=== PATIENT | female | born 1930 | race Caucasian/White ===

== ENCOUNTER 2016-04-26 18:01 | Inpatient (IN) | payer MEDICARE, OTHER ==
[~2016-04-26] VITALS: Ht 157.5 cm; Wt 75.0 kg
[~2016-04-26 18:01] MED LIST: ALBU0.63 NEB; BENZ100 PO; BETH25TA2 PO; CALC1TAB87 PO; COZA25TA PO; DILT-60 PO; FLUT1SPR5 EACH NARE; IPRAAER INH; ISOS30TA15 PO; LEVO-86 PO; NEXI40CA PO; PRED10PA PO; PULM180I INH; SIMV20TA PO; TORS20TA PO; WARF-60 PO; ZITH500T PO; [UNRECOGNIZED DRUG - CODE] PO
[2016-04-26 18:25] VITALS: BP 152/73; PULSE 75; RESP 18; TEMP 98.7; O2SAT 97
[2016-04-26] MEDS ORDERED: ONDANSETRON HCL 4 MG/2 ML VIAL IV PUSH ONE ×2 (18:30→21:00)
[2016-04-26] MEDS ORDERED: HYDROmorphone HCL PF 1 MG/ML VIAL IV PUSH ONE (18:30)
--- NOTE | 2016-04-26 18:34 | PD ---
HPI Chief Complaint: Fall Time Seen by Provider: 18:26 Travel History International Travel<30 days: No Contact w/Intl Traveler<30days: No Traveled to known affect area: No History of Present Illness HPI 85-year-old female with history of A. fib currently on Coumadin, multiple medical history, presents to the ER today because she states that she had lost balance and fell at home last night and had been laying on the floor waiting for her son to get home. She is complaining of left shoulder pain. She states she did hit her head but denies any loss of consciousness. She denies any other injuries, chest pains, shortness of breath, nausea and vomiting, or other symptoms. Current left shoulder pain level is a 6 out of 10, worse with movement. Modifying Factors: None Associated Signs & Symptoms: Lost balance and fell, left shoulder pain Risk Factors: Elderly PFSH Past Medical History Asthma: No Atrial Fibrillation: Yes Autoimmune Disease: No Blood Disorders: No Heart Rhythm Problems: No Cancer: Yes (SKIN) Cardiovascular Problems: Yes (ATRIAL FIBRILLATION,CAD) High Cholesterol: Yes Chemotherapy: No Congestive Heart Failure: No COPD: Yes Cerebrovascular Accident: No Diabetes: No Diminished Hearing: No Endocrine: Yes Gastrointestinal Disorders: Yes (ACID REFLUX, HX OF ESOPHAGEAL STRICTURE/ DILATION) GERD: Yes Glaucoma: No Genitourinary: No Hepatitis: No Hiatal Hernia: No Hypertension: Yes Immune Disorder: No Musculoskeletal: Yes (OSTEOARTHRITIS, BACK PROBLEMS) Neurologic: No Psychiatric: No Reproductive: No Respiratory: Yes (COPD, SLEEP APNEA, USES CPAP) Myocardial Infarction: No Radiation Therapy: No Seizures: No Sleep Apnea: No Thyroid Disease: Yes Ulcer: No ?: Not Past Surgical History Abdominal Surgery: Yes (APPENDECTOMY, CHOLECYSTECTOMY) AICD: No Appendectomy: Yes Cholecystectomy: Yes Eye Surgery: Yes (MAIKEL CATARACT SURGERY) Genitourinary Surgery: No Gynecologic Surgery: Yes (HYSTERECTOMY) Hysterectomy: Yes Pacemaker: No Other Surgery: Yes Social History Alcohol Use: Yes (RARE) Tobacco Use: No (quit 26 years ago) Substance Use: No Allergies-Medications (Allergen,Severity, Reaction): Coded Allergies: Aspirin (Verified Allergy, Severe, Rash, 04/26/16) Reported Meds & Prescriptions Reported Meds & Active Scripts Active Reported Duoneb (Ipratropium-Albuterol Neb) 0.5-2.5 Mg/3 Ml Neb 1 Nebule INH QID PRN Budesonide Neb 0.5 Mg/2 Ml Neb 0.5 Mg NEB Q12HR NEB Isosorbide Mononitrate ER (Isosorbide Mononitrate) 60 Mg Tab 60 Mg PO DAILY Calcium 1000 + D (Calcium Carbonate-Cholecalciferol) 1,000-800 Mg-Unit Tab 1 Tab PO DAILY Warfarin 5 Mg Tab 5 Mg PO HS Klor-Con M15 (Potassium Chloride Microencaps) 15 Meq Tab 15 Meq PO DAILY Torsemide 20 Mg Tab 20 Mg PO DAILY Bethanechol 25 Mg Tab 12.5 Mg PO QID Synthroid (Levothyroxine Sodium) 137 Mcg Tab 137 Mcg PO DAILY Flonase Allergy Relief Nasal Kinta (Fluticasone Nasal Kinta) 50 Mcg/Act Kinta 1 Kinta EACH NARE BID PRN Diltiazem CD 24 HR 120 Mg Caper 120 Mg PO DAILY Cozaar (Losartan Potassium) 25 Mg Tab 25 Mg PO DAILY Nexium (Esomeprazole DR) 40 Mg Capdr 40 Mg PO AC DINNER Combivent Respimat Inh (Ipratropium-Albuterol Inh) 20-100 Group Home/Act Aero 1 Puff INH QID PRN Simvastatin 20 Mg Tab 20 Mg PO HS Review of Systems Except as stated in HPI: all other systems reviewed are Neg Physical Exam Narrative GENERAL: Well-nourished, well-developed pleasant elderly white female patient in mild distress, left arm in a splint. Awake, oriented 3. SKIN: Warm and dry. HEAD: Normocephalic. EYES: No scleral icterus. No injection or drainage. NECK: Supple, trachea midline. CARDIOVASCULAR: Regular rate and rhythm without murmurs, gallops, or rubs. CHEST: Nontender throughout without deformity or crepitance. No retractions or use of accessory muscles. RESPIRATORY: Breath sounds equal bilaterally. No accessory muscle use. GASTROINTESTINAL: Abdomen soft, non-tender, nondistended. Pelvis: Stable and nontender palpation. Nontender range of motion of the hips. MUSCULOSKELETAL: No cyanosis, or edema. BACK: Nontender without obvious deformity. No CVA tenderness. NEUROLOGICAL: Awake and alert. Cranial nerves II through XII intact. Motor and sensory grossly within normal limits. Five out of 5 muscle strength in all muscle groups. Normal speech. Left upper extremity: There is tenderness on palpation of the left humeral midshaft area. Nontender to palpation at the elbow and below, nontender wrist range of motion. Neurovascularly intact in the left arm. Other EXTREMITIES: No clubbing, cyanosis, or edema. No joint tenderness, effusion, or edema noted. Data Data Last Documented VS Vital Signs Date Time Temp Pulse Resp B/P Pulse Ox O2 Delivery O2 Flow Rate FiO2 04/26/16 20:00 98 28 04/26/16 20:00 Nasal Cannula 2.00 04/26/16 18:25 98.7 75 18 152/73 Orders Electrocardiogram (04/26/16 18:26) Complete Blood Count With Diff (04/26/16 18:26) Basic Metabolic Panel (Bmp) (04/26/16 18:26) Prothrombin Time / Inr (Pt) (04/26/16 18:26) Act Partial Throm Time (Ptt) (04/26/16 18:26) Ct Brain W/O Iv Contrast(Rout) (04/26/16 18:26) Hydromorphone Pf Inj (Dilaudid Pf Inj) (04/26/16 18:30) Ondansetron Inj (Zofran Inj) (04/26/16 18:30) Creatine Kinase (Cpk) (04/26/16 18:58) Humerus, One View (04/26/16 18:26) Shoulder, Limited(2vws) (04/26/16 18:26) Propofol 200 Mg/20 Ml Inj (Diprivan 200 (04/26/16 20:00) Sodium Chlorid 0.9% 500 Ml Inj (Ns 500 M (04/26/16 20:00) Ice/Cold Pack (04/26/16 19:54) Splint Or Brace Apply/Monitor (04/26/16 19:54) Shoulder, Limited(2vws) (04/26/16 ) Morphine Inj (Morphine Inj) (04/26/16 21:00) Ondansetron Inj (Zofran Inj) (04/26/16 21:00) Admit Order (Ed Use Only) (04/26/16 21:36) Consult Orthopedic (04/26/16 ) Labs Laboratory Tests Test 04/26/16 18:50 White Blood Count 11.9 TH/MM3 Red Blood Count 4.15 MIL/MM3 Hemoglobin 12.1 GM/DL Hematocrit 36.1 % Mean Corpuscular Volume 87.0 FL Mean Corpuscular Hemoglobin 29.1 PG Mean Corpuscular Hemoglobin 33.5 % Concent Red Cell Distribution Width 16.6 % Platelet Count 212 TH/MM3 Mean Platelet Volume 8.4 FL Neutrophils (%) (Auto) 91.8 % Lymphocytes (%) (Auto) 3.3 % Monocytes (%) (Auto) 4.8 % Eosinophils (%) (Auto) 0.0 % Basophils (%) (Auto) 0.1 % Neutrophils # (Auto) 11.0 TH/MM3 Lymphocytes # (Auto) 0.4 TH/MM3 Monocytes # (Auto) 0.6 TH/MM3 Eosinophils # (Auto) 0.0 TH/MM3 Basophils # (Auto) 0.0 TH/MM3 CBC Comment DIFF FINAL Differential Comment Prothrombin Time 25.2 SEC Prothromb Time International 2.2 RATIO Ratio Activated Partial 37.2 SEC Thromboplast Time Sodium Level 140 MEQ/L Potassium Level 4.5 MEQ/L Chloride Level 103 MEQ/L Carbon Dioxide Level 28.7 MEQ/L Anion Gap 8 MEQ/L Blood Urea Nitrogen 39 MG/DL Creatinine 1.27 MG/DL Estimat Glomerular Filtration 40 ML/MIN Rate Random Glucose 106 MG/DL Calcium Level 9.6 MG/DL Total Creatine Kinase 65 U/L [facility] Medical Decision Making Medical Screen Exam Complete: Yes Emergency Medical Condition: Yes Medical Record Reviewed: Yes Differential Diagnosis Fall, left humeral injury, minor head injuryrule out acute intracranial injuries versus humeral fracture versus dislocation versus contusion Narrative Course X-rays and CAT scans were ordered for the patient. Physician Communication Physician Communication Patient signed out to Dr. Senior at 7 PM awaiting workup. Diagnosis Primary Impression: Fall Qualified Code: W19.XXXA - Fall, initial encounter Additional Impression: Displaced fracture of proximal end of left humerus Mario Babcock MD Apr 26, 2016 18:34
[2016-04-26] MEDS ORDERED: ISOS60TA PO (18:50)
[2016-04-26] MEDS ORDERED: WARF-23 PO (18:50)
[2016-04-26] MEDS ORDERED: CALCTAB80 PO (18:50)
[2016-04-26] MEDS ORDERED: IPRASOL INH (18:52)
[2016-04-26] MEDS ORDERED: BUDE0.5S NEB (18:52)
--- NOTE | 2016-04-26 19:14 | PD ---
Physical Exam Narrative General: The patient is well-developed well-nourished female in no acute distress. The patient has obvious deformity of the proximal left humerus. She reports pain at the site. The patient reports a history of tripping over her oxygen tubing at home at approximately 3:30 PM. She reports that she lives with her son and new that he would be home from work at approximately 4:30 PM, therefore she did not panic. She denies having any other injury associated with this. She reports that she does have stiffness to the right knee. She reports that she's had bilateral knee replacements. Head and Neck exam: Head is normocephalic atraumatic. Eyes: Pupils are equal round and reactive to light. Nose: Midline septum with pink mucous membranes Mouth: Dentition unremarkable. Moist mucus membranes. Posterior oropharynx is not erythematous. No tonsillar hypertrophy. Uvula midline. Airway patent. Neck: No palpable lymphadenopathy. No nuchal rigidity. No thyromegaly. Cardiovascular: Irregularly irregular with rate control consistent with her history of atrial fibrillation without murmurs, gallops, or rubs. Lungs: Clear to auscultation bilaterally. No wheezes, rhonchi, or rales. Abdomen: Soft, without tenderness to palpation in all 4 quadrants of the abdomen. No guarding, rebound, or rigidity. Normal bowel sounds are audible. Extremities: No clubbing, cyanosis, or edema. 2+ pulses in all 4 extremities. She has some tenderness to palpation over the anterior aspect of the right knee where she has an abrasion. She however has full range of motion of bilateral knees and hips without any shortening, rotation, or deformity. There is no crepitus or step-off. The patient on examination of the left shoulder is noted to have a proximal deformity. The patient has a splint and place that was placed by ambulance services prior to arrival. The patient has no pain on palpation of her elbow. The patient has no pain on palpation of her wrist or hand. The patient has full range of motion with extension and flexion of the wrist and extension and flexion of the elbow without pain. The patient has intact sensation over all fingertips, less than 3 second capillary refill. Neurologic Exam: Grossly nonfocal. The patient is awake and alert, oriented to person, place, time, and situation. Skin Exam: No rash noted. She has an abrasion to the anterior aspect of the right knee. Data Data Last Documented VS Vital Signs Date Time Temp Pulse Resp B/P Pulse Ox O2 Delivery O2 Flow Rate FiO2 04/26/16 18:40 99 Nasal Cannula 2 04/26/16 18:25 98.7 75 18 152/73 Orders Electrocardiogram (04/26/16 18:26) Complete Blood Count With Diff (04/26/16 18:26) Basic Metabolic Panel (Bmp) (04/26/16 18:26) Prothrombin Time / Inr (Pt) (04/26/16 18:26) Act Partial Throm Time (Ptt) (04/26/16 18:26) Ct Brain W/O Iv Contrast(Rout) (04/26/16 18:26) Hydromorphone Pf Inj (Dilaudid Pf Inj) (04/26/16 18:30) Ondansetron Inj (Zofran Inj) (04/26/16 18:30) Creatine Kinase (Cpk) (04/26/16 18:58) Humerus, One View (04/26/16 18:26) Shoulder, Limited(2vws) (04/26/16 18:26) Propofol 200 Mg/20 Ml Inj (Diprivan 200 (04/26/16 20:00) Sodium Chlorid 0.9% 500 Ml Inj (Ns 500 M (04/26/16 20:00) Ice/Cold Pack (04/26/16 19:54) Splint Or Brace Apply/Monitor (04/26/16 19:54) Shoulder, Limited(2vws) (04/26/16 ) Morphine Inj (Morphine Inj) (04/26/16 21:00) Ondansetron Inj (Zofran Inj) (04/26/16 21:00) Admit Order (Ed Use Only) (04/26/16 21:36) Consult Orthopedic (04/26/16 ) Labs Laboratory Tests Test 04/26/16 18:50 White Blood Count 11.9 TH/MM3 Red Blood Count 4.15 MIL/MM3 Hemoglobin 12.1 GM/DL Hematocrit 36.1 % Mean Corpuscular Volume 87.0 FL Mean Corpuscular Hemoglobin 29.1 PG Mean Corpuscular Hemoglobin 33.5 % Concent Red Cell Distribution Width 16.6 % Platelet Count 212 TH/MM3 Mean Platelet Volume 8.4 FL Neutrophils (%) (Auto) 91.8 % Lymphocytes (%) (Auto) 3.3 % Monocytes (%) (Auto) 4.8 % Eosinophils (%) (Auto) 0.0 % Basophils (%) (Auto) 0.1 % Neutrophils # (Auto) 11.0 TH/MM3 Lymphocytes # (Auto) 0.4 TH/MM3 Monocytes # (Auto) 0.6 TH/MM3 Eosinophils # (Auto) 0.0 TH/MM3 Basophils # (Auto) 0.0 TH/MM3 CBC Comment DIFF FINAL Differential Comment Prothrombin Time 25.2 SEC Prothromb Time International 2.2 RATIO Ratio Activated Partial 37.2 SEC Thromboplast Time Sodium Level 140 MEQ/L Potassium Level 4.5 MEQ/L Chloride Level 103 MEQ/L Carbon Dioxide Level 28.7 MEQ/L Anion Gap 8 MEQ/L Blood Urea Nitrogen 39 MG/DL Creatinine 1.27 MG/DL Estimat Glomerular Filtration 40 ML/MIN Rate Random Glucose 106 MG/DL Calcium Level 9.6 MG/DL Total Creatine Kinase 65 U/L [facility] Medical Record Reviewed: Yes Supervised Visit with YOLANDA: No Interpretation(s) Last Impressions Shoulder X-Ray 04/26/161825 Signed Impressions: Service Date/Time: Tuesday, April 26, 2016 19:08 - CONCLUSION: 1. Fracture dislocation proximal left humerus with anterior displacement. Allan Shah MD Humerus X-Ray 04/26/161825 Signed Impressions: Service Date/Time: Tuesday, April 26, 2016 19:06 - CONCLUSION: 1. Fracture dislocation proximal humerus. Possible fracture bony glenoid. Allan Shah MD Head CT 04/26/161825 Signed Impressions: Service Date/Time: Tuesday, April 26, 2016 19:29 - CONCLUSION: 1. No acute findings. White matter ischemic changes. Allan Shah MD Shoulder X-Ray 04/26/16 0000 Signed Impressions: Service Date/Time: Tuesday, April 26, 2016 20:39 - CONCLUSION: 1. Comminuted fracture proximal left humerus with reduction of previous dislocation. Allan Shah MD Differential Diagnosis Left shoulder fracture, versus dislocation, versus rhabdomyolysis, versus intracranial hemorrhage Narrative Course During the course of the patients emergency department visit, the patients history, examination, and differential diagnosis were reviewed with the patient. The patient had IV access obtained and blood work sent for analysis. The patient was placed on a clinical research monitor with oximetry and blood pressure monitoring. The patient was initially evaluated by Dr. Berg, who requested that I review the patient's laboratory studies and imaging studies and disposition the patient at the conclusion of her shift. The patient is an 85-year-old female who presents to [facility] emergency Department with a history of reported fall with left arm deformity. The patient is reportedly on Coumadin related to a history of atrial fibrillation. Laboratory studies were ordered including an INR and his CPK is a patient was found on the ground for an unspecified period of time. A CT scan of the brain was ordered and a left shoulder x-ray was ordered. The patient was provided by Dr. Berg, hydromorphone 0.5 mg IV, Zofran 4 mg IV. The patients laboratory studies were reviewed and remarkable for a white count of 11.9, hemoglobin 12.1, platelets 212 with neutrophils 91.8, lymphocytes 3.3, basic metabolic profile is remarkable for BUN of 39, creatinine 1.27, CPK 65, INR is 2.2 Radiology studies were reviewed and remarkable for CT scan of the brain was negative for acute abnormality. Humerus x-ray revealed a fracture dislocation of the proximal humerus, possible fracture of the bony glenoid, left shoulder x- ray revealed a fracture dislocation proximal left humerus with anterior displacement. The patient's case is discussed with Dr. Barraza. We did review the patient's x-ray. He did agree with the plan at and attempted closed reduction in the emergency department at this dislocation. The patient consented to close reduction of her proximal left humerus fracture dislocation. A post reduction film revealed a comminuted fracture of the proximal left humerus with reduction a previous dislocation. The patient was placed in a sling and swath. The patient continued to require IV pain medication. The patient will be admitted to the hospital for intractable pain related to this fracture. A CT scan of the shoulder will also be ordered to evaluate further considering the possible glenoid fracture associated with this humerus fracture. The patients results were discussed with the patient, including the plan of care. I explained that further testing and/ or monitoring is indicated based on the patients history, examination, and/ or laboratory findings. Therefore, I recommended admission for additional evaluation. The patient expressed understanding and was agreeable with this plan. The patient was admitted to the hospital in stable condition and [facility] Procedures Procedure Narrative Closed reduction left proximal humerus fracture dislocation: Traction was applied in line with the humerus while the shoulder was externally rotated. Palpable alignment was noted on reexamination of the patient's humerus, however no clunk was heard or felt. After the risks and benefits were discussed the following procedure was performed: MODERATE SEDATION: The patient was placed on a clinical research monitor and pulse oximetry. An ambu bag and suction was immediately available at bedside. The patient was monitored by the nurse. Oxygen saturation , heart rate and blood pressure were monitored. Procedural sedation was acheived using 60 mg of propofol. The patient was observed until awake and alert. Procedural Sedation time in attendance was 20 minutes. Physician Communication Physician Communication The patient's case was discussed with Dr. Barraza at 1947 while he was in the ER evaluating another patient. He did review the x-rays with me. He did agree with me proceeding with procedural sedation and an attempt at closed reduction of her fracture dislocation of the left proximal humerus. The patient's case was discussed with Dr. Ellsworth who did agree to admit the patient for further evaluation and treatment at this time. Diagnosis Primary Impression: Displaced fracture of proximal end of left humerus Qualified Code: S42.292A - Other closed displaced fracture of proximal end of left humerus, initial encounter Additional Impressions: Intractable pain Fall Qualified Code: W19.XXXA - Fall, initial encounter Admitting Information Admitting Physician Requests: Observation Sowmya Senior MD Apr 26, 2016 19:14
[2016-04-26 20:00] VITALS: O2SAT 98
[2016-04-26] MEDS ORDERED: PROPOFOL 200 MG/20 ML AMP IV ONE (20:00)
[2016-04-26] MEDS ORDERED: SODIUM CHLORID 0.9% 500 ML INJ 500 ML IV ONE (20:00)
--- NOTE | 2016-04-26 20:09 | RADRPT ---
EXAM DATE/TIME: 04/26/2016 19:29 [facility] COMPARISON: No previous studies available for comparison. INDICATIONS : Fall hitting left side 0f head and arm. RADIATION DOSE: 54.20 CTDIvol (mGy) MEDICAL HISTORY : Cardiovascular disease. Hypertension. Renal insufficiency. SURGICAL HISTORY : Appendectomy. Cholecystectomy.Hysterectomy. ENCOUNTER: Initial ACUITY: 1 day PAIN SCALE: 6/10 LOCATION: Left cranial TECHNIQUE: Multiple contiguous axial images were obtained of the head. Using automated exposure control and adj ustment of the mA and/or kV according to patient size, radiation dose was kept as low as reasonably a chievable to obtain optimal diagnostic quality images. FINDINGS: CEREBRUM: The ventricles are normal for age. No evidence of midline shift, mass lesion, hemorrhage or acute in farction. No extra-axial fluid collections are seen. POSTERIOR FOSSA: The cerebellum and brainstem are intact. The 4th ventricle is midline. The cerebellopontine angle i s unremarkable. EXTRACRANIAL: The visualized portion of the orbits is intact. SKULL: The calvaria is intact. No evidence of skull fracture. CONCLUSION: 1. No acute findings. White matter ischemic changes. Allan Shah MD on April 26, 2016 at 20:07 Board Certified Radiologist. This report was verified electronically.
--- NOTE | 2016-04-26 20:24 | RADRPT ---
EXAM DATE/TIME: 04/26/2016 19:06 [facility] COMPARISON: No previous studies available for comparison. INDICATIONS : Fall. Left shoulder pain. MEDICAL HISTORY : Chronic obstructive pulmonary disease. Hypertension. A-fib. SURGICAL HISTORY : None. ENCOUNTER: Initial ACUITY: 1 day PAIN SCORE: 10/10 LOCATION: Left shoulder FINDINGS: There is a displaced proximal humeral head and neck fracture with anterior dislocation. There is a po ssible fracture also through the bony glenoid. No distal humeral fracture identified. CONCLUSION: 1. Fracture dislocation proximal humerus. Possible fracture bony glenoid. Allan Shah MD on April 26, 2016 at 20:22 Board Certified Radiologist. This report was verified electronically.
--- NOTE | 2016-04-26 20:27 | RADRPT ---
EXAM DATE/TIME: 04/26/2016 19:08 [facility] COMPARISON: No previous studies available for comparison. INDICATIONS : Fall. Left shoulder pain. MEDICAL HISTORY : Chronic obstructive pulmonary disease. Hypertension. A-fib. SURGICAL HISTORY : None. ENCOUNTER: Initial ACUITY: 1 day PAIN SCORE: 10/10 LOCATION: Left shoulder FINDINGS: There is a comminuted fracture dislocation of the proximal left humerus with anterior displacement. Q uestionable bony glenoid fracture. CONCLUSION: 1. Fracture dislocation proximal left humerus with anterior displacement. Allan Shah MD on April 26, 2016 at 20:25 Board Certified Radiologist. This report was verified electronically.
[2016-04-26 20:51] LABS: BASOPHIL % 0.1 % (0.0-2.0); HEMATOCRIT 36.1 % (35.0-46.0); HEMO FLAGS DIFF FINAL; LYMPH % 3.3 % (9.0-44.0); LYMPHOCYTE # 0.4 TH/MM3 (1.0-4.8); MEAN CORPUSCULAR HEMOGLOBIN 29.1 PG (27.0-34.0); MEAN CORPUSCULAR HGB CONC 33.5 % (32.0-36.0); MONO % 4.8 % (0.0-8.0); NEUT % 91.8 % (16.0-70.0); PLATELET COUNT 212 TH/MM3 (150-450); RED BLOOD COUNT 4.15 MIL/MM3 (4.00-5.30); RED CELL DISTRIBUTION WIDTH 16.6 % (11.6-17.2); WHITE BLOOD COUNT 11.9 TH/MM3 (4.0-11.0)
[2016-04-26] MEDS ORDERED: MORPHINE SULFATE 4 MG/ML INJ IV PUSH ONE (21:00)
[2016-04-26 21:03] LABS: APTT (PATIENT) 37.2 SEC (24.3-30.1); INTERNATIONAL NORMALIZED RATIO 2.2 RATIO; PROTHROMBIN TIME - PATIENT 25.2 SEC (9.8-11.6)
[2016-04-26 21:09] LABS: BICARBONATE 28.7 MEQ/L (21.0-32.0); POTASSIUM 4.5 MEQ/L (3.5-5.1)
--- NOTE | 2016-04-26 21:39 | RADRPT ---
EXAM DATE/TIME: 04/26/2016 20:39 [facility] COMPARISON: SHOULDER LEFT LTD (2VWS), April 26, 2016, 19:08. INDICATIONS : Post-reduction left shoulder. MEDICAL HISTORY : Cardiovascular disease. Renal insufficiency. Hypertension. SURGICAL HISTORY : Appendectomy. Cholecystectomy. Hysterectomy. ENCOUNTER: Initial ACUITY: 1 day PAIN SCORE: 6/10 LOCATION: Left shoulder FINDINGS: Two view examination of the left shoulder demonstrates comminuted fracture proximal left humerus with reduction of previous dislocation. CONCLUSION: 1. Comminuted fracture proximal left humerus with reduction of previous dislocation. Allan Shah MD on April 26, 2016 at 21:36 Board Certified Radiologist. This report was verified electronically.
[2016-04-26 22:00] VITALS: BP 150/79; PULSE 77; RESP 16; TEMP 98.7; O2SAT 98
[2016-04-26] MEDS ORDERED: SODIUM CHLORIDE 0.9% FLUSH 5 ML FLUSH FLUSH PRN (22:00)
[2016-04-26] MEDS ORDERED: NALOXONE HCL 0.4 MG/ML AMP IV PRN (22:00)
--- NOTE | 2016-04-26 22:26 | RADRPT ---
EXAM DATE/TIME: 04/26/2016 21:54 [facility] COMPARISON: No previous studies available for comparison. INDICATIONS : Trauma. Left arm fracture. RADIATION DOSE: 17.11 CTDIvol (mGy) MEDICAL HISTORY : None SURGICAL HISTORY : None. ENCOUNTER: Subsequent ACUITY: 1 day PAIN SCALE: 10/10 LOCATION: Left arm and shoulder TECHNIQUE: Volumetric scanning of the shoulder was performed. Using automated exposure control and adjustment o f the mA and/or kV according to patient size, radiation dose was kept as low as reasonably achievable to obtain optimal diagnostic quality images. FINDINGS: There is a comminuted fracture of the proximal humerus. There is a portion of the humeral head that h as become avulsed superiorly and the remaining portion of the humeral head appears to be rotated post eriorly. There is a shoulder joint effusion. 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 There is a small avulsion fracture of the glenoid posteriorly and superiorly. CONCLUSION: 1. Comminuted fracture of the proximal left humerus with abnormal rotation of the fracture fragments as above. Small avulsion fracture of the glenoid. Allan Shah MD on April 26, 2016 at 22:18 Board Certified Radiologist. This report was verified electronically.
[2016-04-27] VITALS (12 sets, daily range): BP systolic 101–145; BP diastolic 51–85; PULSE 68–98; RESP 13–21; TEMP 97.2–98; O2SAT 92–99
[2016-04-27] MEDS ORDERED: TEMAZEPAM 7.5 MG CAP PO ONE (00:45)
[2016-04-27] MEDS: MORPHINE SULFATE 4 MG/ML INJ IV PUSH PRN ×4 (02:15→15:28)
[2016-04-27 05:27] LABS: AUTOMATED NEUTROPHIL # 7.6 TH/MM3 (1.8-7.7); BASOPHIL % 0.2 % (0.0-2.0); EOSINOPHIL % 0.1 % (0.0-4.0); HEMATOCRIT 33.5 % (35.0-46.0); HEMO FLAGS DIFF FINAL; LYMPH % 9.5 % (9.0-44.0); LYMPHOCYTE # 0.9 TH/MM3 (1.0-4.8); MEAN CELL VOLUME 88.5 FL (80.0-100.0); MEAN CORPUSCULAR HEMOGLOBIN 28.6 PG (27.0-34.0); MEAN CORPUSCULAR HGB CONC 32.3 % (32.0-36.0); NEUT % 82.2 % (16.0-70.0); PLATELET COUNT 209 TH/MM3 (150-450); RED BLOOD COUNT 3.79 MIL/MM3 (4.00-5.30); RED CELL DISTRIBUTION WIDTH 16.5 % (11.6-17.2); WHITE BLOOD COUNT 9.3 TH/MM3 (4.0-11.0)
[2016-04-27 05:46] LABS: BICARBONATE 28.3 MEQ/L (21.0-32.0); POTASSIUM 4.9 MEQ/L (3.5-5.1)
[2016-04-27] MEDS ORDERED: RESP: ALBUTEROL 2.5 MG/IPRATROPIUM 0.5 MG NEB (PRN) NEB ×2 (06:45→15:15)
--- NOTE | 2016-04-27 07:34 | PD.CONS ---
cc: Rajeev Barraza MD HPI Service Orthopedic Surgeons Consult Requested By ED staff Reason for Consult Fracture/dislocation left shoulder Primary Care Physician Jose Rafael Granado MD Admission Diagnosis Intractable Pain in left arm s/p fracture dislocation proximal humer Diagnoses: (1) CAD (coronary artery disease) (2) DVT prophylaxis (3) COPD (chronic obstructive pulmonary disease) (4) Hypothyroidism (5) GERD (gastroesophageal reflux disease) (6) Sleep apnea (7) Chronic atrial fibrillation (8) COPD exacerbation (9) Displaced fracture of proximal end of left humerus (10) Anterior dislocation of left shoulder Chief Complaint: Left shoulder pain History of Present Illness This 85-year-old female with multiple medical problems fell yesterday injuring her left shoulder. She presented to [facility]. X-rays revealed a fracture dislocation of left shoulder. She underwent closed reduction of the dislocation in the emergency room. Postreduction x-rays did confirm the reduction. The fracture alignment was overall improved although still moderately displaced involving the tuberosities. Orthopedic consultation was requested. The patient states that she has not had previous problems with her left shoulder. She also had a laceration or abrasion involving the right knee. She denies other extremity injury at the time of her fall. Past Family Social History Past Medical History PFSH Past Medical History Asthma: No Atrial Fibrillation: Yes Autoimmune Disease: No Blood Disorders: No Heart Rhythm Problems: No Cancer: Yes (SKIN) Cardiovascular Problems: Yes (ATRIAL FIBRILLATION,CAD) High Cholesterol: Yes Chemotherapy: No Congestive Heart Failure: No COPD: Yes Cerebrovascular Accident: No Diabetes: No Diminished Hearing: No Endocrine: Yes Gastrointestinal Disorders: Yes (ACID REFLUX, HX OF ESOPHAGEAL STRICTURE/ DILATION) GERD: Yes Glaucoma: No Genitourinary: No Hepatitis: No Hiatal Hernia: No Hypertension: Yes Immune Disorder: No Musculoskeletal: Yes (OSTEOARTHRITIS, BACK PROBLEMS) Neurologic: No Psychiatric: No Reproductive: No Respiratory: Yes (COPD, SLEEP APNEA, USES CPAP) Myocardial Infarction: No Radiation Therapy: No Seizures: No Sleep Apnea: No Thyroid Disease: Yes Ulcer: No ?: Not Past Surgical History Past Surgical History Abdominal Surgery: Yes (APPENDECTOMY, CHOLECYSTECTOMY) AICD: No Appendectomy: Yes Cholecystectomy: Yes Eye Surgery: Yes (MAIKEL CATARACT SURGERY) Genitourinary Surgery: No Gynecologic Surgery: Yes (HYSTERECTOMY) Hysterectomy: Yes Pacemaker: No Other Surgery: Yes- total hip arthroplasty Allergies: Coded Allergies: Aspirin (Verified Allergy, Severe, Rash, 04/26/16) Active Ordered Medications Current Medications Medications (Trade) Dose Ordered Sig/Nancy Route Start Time Stop Time Status Last Admin (NS Flush) 2 ml UNSCH PRN FLUSH 04/26/16 22:00 (NS Flush) 2 ml BID FLUSH 04/27/16 09:00 (Narcan Inj) 0.4 mg UNSCH PRN IV 04/26/16 22:00 (Morphine Inj) 2 mg Q3H PRN IV PUSH 04/26/16 22:00 04/27/16 05:39 Reported Meds & Active Scripts Active Reported Duoneb (Ipratropium-Albuterol Neb) 0.5-2.5 Mg/3 Ml Neb 1 Nebule INH QID PRN Budesonide Neb 0.5 Mg/2 Ml Neb 0.5 Mg NEB Q12HR NEB Isosorbide Mononitrate ER (Isosorbide Mononitrate) 60 Mg Tab 60 Mg PO DAILY Calcium 1000 + D (Calcium Carbonate-Cholecalciferol) 1,000-800 Mg-Unit Tab 1 Tab PO DAILY Warfarin 5 Mg Tab 5 Mg PO HS Klor-Con M15 (Potassium Chloride Microencaps) 15 Meq Tab 15 Meq PO DAILY Torsemide 20 Mg Tab 20 Mg PO DAILY Bethanechol 25 Mg Tab 12.5 Mg PO QID Synthroid (Levothyroxine Sodium) 137 Mcg Tab 137 Mcg PO DAILY Flonase Allergy Relief Nasal [place] (Fluticasone Nasal [place]) 50 Mcg/Act [place] 1 [place] EACH NARE BID PRN Diltiazem CD 24 HR 120 Mg Caper 120 Mg PO DAILY Cozaar (Losartan Potassium) 25 Mg Tab 25 Mg PO DAILY Nexium (Esomeprazole DR) 40 Mg Capdr 40 Mg PO AC DINNER Combivent Respimat Inh (Ipratropium-Albuterol Inh) 20-100 Chcf/Act Aero 1 Puff INH QID PRN Simvastatin 20 Mg Tab 20 Mg PO HS Social History Social History Alcohol Use: Yes (RARE) Tobacco Use: No (quit 26 years ago) Substance Use: No Allergies-Medications (Allergen,Severity, Reaction): Coded Allergies: Aspirin (Verified Allergy, Severe, Rash, 04/26/16) Reported Meds & Prescriptions Physical Exam Vital Signs Vital Signs Date Time Temp Pulse Resp B/P Pulse Ox O2 Delivery O2 Flow Rate FiO2 04/27/16 07:09 97.2 78 19 108/58 99 04/27/16 06:13 98.0 74 18 110/51 97 04/27/16 03:00 78 04/27/16 02:00 97.5 75 16 133/85 97 04/27/16 01:46 68 96 96 Nasal Cannula 2 04/27/16 00:00 68 13 145/75 98 Nasal Cannula 2 04/26/16 22:00 98.7 77 16 150/79 98 Nasal Cannula 2 04/26/16 20:00 98 28 04/26/16 20:00 98 Nasal Cannula 2.00 04/26/16 20:00 98 6.00 04/26/16 18:40 99 Nasal Cannula 2 04/26/16 18:25 98.7 75 18 152/73 97 Physical Exam The left upper extremity is in a sling and swath. This was left intact. Patient has pain with any attempted range of motion. Examination is somewhat limited although she is able to move her elbow and wrist without discomfort. She is good capillary refill and sensation distally. She has a small dressing over the anterior aspect of the right knee. She moves the knee without discomfort. There is no calf swelling or discomfort. Neurologically no focal deficit. Laboratory Laboratory Tests Test 04/26/16 04/27/16 18:50 05:06 White Blood Count 11.9 9.3 Red Blood Count 4.15 3.79 Hemoglobin 12.1 10.8 Hematocrit 36.1 33.5 Mean Corpuscular Volume 87.0 88.5 Mean Corpuscular Hemoglobin 29.1 28.6 Mean Corpuscular Hemoglobin 33.5 32.3 Concent Red Cell Distribution Width 16.6 16.5 Platelet Count 212 209 Mean Platelet Volume 8.4 8.1 Neutrophils (%) (Auto) 91.8 82.2 Lymphocytes (%) (Auto) 3.3 9.5 Monocytes (%) (Auto) 4.8 8.0 Eosinophils (%) (Auto) 0.0 0.1 Basophils (%) (Auto) 0.1 0.2 Neutrophils # (Auto) 11.0 7.6 Lymphocytes # (Auto) 0.4 0.9 Monocytes # (Auto) 0.6 0.7 Eosinophils # (Auto) 0.0 0.0 Basophils # (Auto) 0.0 0.0 CBC Comment DIFF FINAL DIFF FINAL Differential Comment Prothrombin Time 25.2 Prothromb Time International 2.2 Ratio Activated Partial 37.2 Thromboplast Time Sodium Level 140 141 Potassium Level 4.5 4.9 Chloride Level 103 107 Carbon Dioxide Level 28.7 28.3 Anion Gap 8 6 Blood Urea Nitrogen 39 43 Creatinine 1.27 1.47 Estimat Glomerular Filtration 40 34 Rate Random Glucose 106 92 Calcium Level 9.6 9.1 Total Creatine Kinase 65 Result Diagram: 04/27/16 0506 04/27/16 050 Imaging Last 48 hours Impressions Shoulder X-Ray 04/26/161825 Signed Impressions: Service Date/Time: Tuesday, April 26, 2016 19:08 - CONCLUSION: 1. Fracture dislocation proximal left humerus with anterior displacement. Allan Shah MD Humerus X-Ray 04/26/161825 Signed Impressions: Service Date/Time: Tuesday, April 26, 2016 19:06 - CONCLUSION: 1. Fracture dislocation proximal humerus. Possible fracture bony glenoid. Allan Shah MD Head CT 04/26/161825 Signed Impressions: Service Date/Time: Tuesday, April 26, 2016 19:29 - CONCLUSION: 1. No acute findings. White matter ischemic changes. Allan Shah MD Upper Extremity CT 04/26/16 0000 Signed Impressions: Service Date/Time: Tuesday, April 26, 2016 21:54 - CONCLUSION: 1. Comminuted fracture of the proximal left humerus with abnormal rotation of the fracture fragments as above. Small avulsion fracture of the glenoid. Allan Shah MD Shoulder X-Ray 04/26/16 0000 Signed Impressions: Service Date/Time: Tuesday, April 26, 2016 20:39 - CONCLUSION: 1. Comminuted fracture proximal left humerus with reduction of previous dislocation. Allan Shah MD Assessment & Plan Problem List: (1) Anterior dislocation of left shoulder (2) Displaced fracture of proximal end of left humerus (3) COPD exacerbation (4) Hypotension (5) Chronic atrial fibrillation (6) Sleep apnea (7) GERD (gastroesophageal reflux disease) (8) Hypothyroidism (9) COPD (chronic obstructive pulmonary disease) (10) DVT prophylaxis (11) CAD (coronary artery disease) Assessment and Plan The findings were discussed. The patient currently is anticoagulated. Based upon this, her multiple medical problems and her age, recommendations are for nonoperative management at the present time. She will continue use of the sling and swath. She can remove it for range of motion exercises of the elbow and wrist. As her pain improves and the healing progresses, she will progress range of motion. In addition, if the fracture further displaces or results in nonunion, malunion etc. surgical management could be attempted at that time. She will follow with the undersigned in approximately 3 weeks. The patient acknowledges full understanding of the nature of the problem and the plan of treatment and agrees to it. Rajeev Barraza MD Apr 27, 2016 07:34
[2016-04-27] MEDS: SODIUM CHLORIDE 0.9% FLUSH 5 ML FLUSH FLUSH SCH ×2 (10:15→21:29)
--- NOTE | 2016-04-27 15:08 | HHI.HP ---
[facility] Jose [facility] Granado MD Admission Diagnosis Intractable Pain in left arm s/p fracture dislocation proximal humer Diagnoses: (1) Displaced fracture of proximal end of left humerus Chief Complaint: fall, left shoulder pain Travel History International Travel<30 Days: No Contact w/Intl Traveler <30 Da: No Traveled to Known Affected Are: No History of Present Illness 85-year-old female with hx of atrial fibrillation on Coumadin, CKD stage III, CAD, HTN, HLD, COPD O2 dependent, KARLY on CPAP, GERD, osteoarthritis, hypothyroidism, presents after a fall with left shoulder pain. The patient reports yesterday 04/26/16 she fell to the floor after tripping over her oxygen tubing. She reports significant amount of left shoulder pain following the fall. She was unable to ambulate afterwards so she waited on the floor for her son to arrive. She denies any LOC/syncope. She believes she might have hit her head because it feels sore, but denies any significant headache, lightheadedness , or dizziness. She denies any other medical complaints including no chest pain , abdominal pain, or urinary complaints. She states she has significant shortness of breath and dry cough at baseline with her COPD. Upon arrival to the ED, she was found to have a left humerus fracture and dislocation, s/p closed reduction in the ER. Review of Systems Constitutional: DENIES: Diaphoretic episodes, Fever, Chills, Dizziness Endocrine: DENIES: Polydipsia, Polyuria, Polyphagia Eyes: DENIES: Blurred vision, Vision loss, Double Vision Ears, nose, mouth, throat: DENIES: Throat pain, Running Nose, Odynophagia Respiratory: COMPLAINS OF: Cough, Wheezing, Shortness of breath, DENIES: Sputum production Cardiovascular: DENIES: Chest pain, Palpitations, Syncope, Dyspnea on Exertion , Lower Extremity Edema Gastrointestinal: DENIES: Abdominal pain, Constipation, Diarrhea, Nausea, Vomiting Genitourinary: DENIES: Urinary frequency, Urgency, Dysuria Musculoskeletal: COMPLAINS OF: Joint pain, DENIES: Back pain, Neck pain Integumentary: DENIES: Abnormal pigmentation, Pruritus, Rash Hematologic/lymphatic: DENIES: Bruising, Lymphadenopathy Immunologic/allergic: DENIES: Eczema, Urticaria Neurologic: DENIES: Abnormal gait, Headache, Localized weakness, Paresthesias Psychiatric: DENIES: Anxiety, Depression Past Family Social History Past Medical History atrial fibrillation on Coumadin CKD stage III CAD HTN HLD COPD O2 dependent KARLY on CPAP GERD esophageal stricture osteoarthritis hypothyroidism Past Surgical History Appendectomy Cholecystectomy Bilateral cataract surgery Hysterectomy Total hip arthroplasty Reported Medications Duoneb (Ipratropium-Albuterol Neb) 0.5-2.5 Mg/3 Ml Neb 1 Nebule INH QID PRN Budesonide Neb 0.5 Mg/2 Ml Neb 0.5 Mg NEB Q12HR NEB Isosorbide Mononitrate ER (Isosorbide Mononitrate) 60 Mg Tab 60 Mg PO DAILY Calcium 1000 + D (Calcium Carbonate-Cholecalciferol) 1,000-800 Mg-Unit Tab 1 Tab PO DAILY Warfarin 5 Mg Tab 5 Mg PO HS Klor-Con M15 (Potassium Chloride Microencaps) 15 Meq Tab 15 Meq PO DAILY Torsemide 20 Mg Tab 20 Mg PO DAILY Bethanechol 25 Mg Tab 12.5 Mg PO QID Synthroid (Levothyroxine Sodium) 137 Mcg Tab 137 Mcg PO DAILY Flonase Allergy Relief Nasal [place] (Fluticasone Nasal [place]) 50 Mcg/Act [place] 1 [place] EACH NARE BID PRN Diltiazem CD 24 HR 120 Mg Caper 120 Mg PO DAILY Cozaar (Losartan Potassium) 25 Mg Tab 25 Mg PO DAILY Nexium (Esomeprazole DR) 40 Mg Capdr 40 Mg PO AC DINNER Combivent Respimat Inh (Ipratropium-Albuterol Inh) 20-100 [place]/Act Aero 1 Puff INH QID PRN Simvastatin 20 Mg Tab 20 Mg PO HS Allergies: Coded Allergies: Aspirin (Verified Allergy, Severe, Rash, 04/26/16) Active Ordered Medications Current Medications Medications (Trade) Dose Ordered Sig/Nancy Route Start Time Stop Time Status Last Admin (NS Flush) 2 ml UNSCH PRN FLUSH 04/26/16 22:00 (NS Flush) 2 ml BID FLUSH 04/27/16 09:00 04/27/16 10:15 (Narcan Inj) 0.4 mg UNSCH PRN IV 04/26/16 22:00 (Morphine Inj) 2 mg Q3H PRN IV PUSH 04/26/16 22:00 04/27/16 15:28 (SoluMEDROL INJ) 40 mg Q6HR IV PUSH 04/27/16 22:00 (Tish-Colace) 2 tab BID PO 04/27/16 21:00 (Milk Of Magnesia Liq) 30 ml DAILY PRN PO 04/27/16 15:15 Family History Mother with COPD Unknown father's medical history Social History Prior tobacco use, quit 26 years ago Very rare alcohol use Denies illicit drug use Physical Exam Vital Signs Vital Signs Date Time Temp Pulse Resp B/P Pulse Ox O2 Delivery O2 Flow Rate FiO2 04/27/16 14:22 97.5 98 18 101/56 98 04/27/16 12:30 98.0 82 19 109/59 96 04/27/16 10:20 18 04/27/16 08:39 92 Nasal Cannula 2.00 04/27/16 08:00 76 04/27/16 07:09 97.2 78 19 108/58 99 04/27/16 06:13 98.0 74 18 110/51 97 04/27/16 03:00 78 04/27/16 02:00 97.5 75 16 133/85 97 04/27/16 01:46 68 96 96 Nasal Cannula 2 04/27/16 00:00 68 13 145/75 98 Nasal Cannula 2 04/26/16 22:00 98.7 77 16 150/79 98 Nasal Cannula 2 04/26/16 20:00 98 28 04/26/16 20:00 98 Nasal Cannula 2.00 04/26/16 20:00 98 6.00 04/26/16 18:40 99 Nasal Cannula 2 04/26/16 18:25 98.7 75 18 152/73 97 Physical Exam GENERAL: Well-nourished, well-developed pleasant elderly female patient in NAD. SKIN: Warm and dry. No rash. HEAD: Normocephalic. Atraumatic. EYES: Pupils equal and round. No scleral icterus. No injection or drainage. ENT: No nasal bleeding or discharge. Mucous membranes pink and moist. NECK: Supple. Trachea midline. CARDIOVASCULAR: Regular rate and rhythm. S1, S2 noted. No murmur appreciated. RESPIRATORY: No accessory muscle use. Significant diffuse wheezing throughout all lung rondon. Breath sounds equal bilaterally. GASTROINTESTINAL: Abdomen soft, non-tender, nondistended. Normoactive bowel sounds x4. MUSCULOSKELETAL: No obvious deformities. Extremities without clubbing, cyanosis , or edema. Left shoulder in sling, tender to palpation, did not attempt ROM with known fracture. NEUROLOGICAL: Awake and alert. No obvious cranial nerve deficits. Motor grossly within normal limits. Normal speech. PSYCHIATRIC: Appropriate mood and affect; insight and judgment normal. Laboratory Laboratory Tests Test 04/26/16 04/27/16 18:50 05:06 White Blood Count 11.9 9.3 Red Blood Count 4.15 3.79 Hemoglobin 12.1 10.8 Hematocrit 36.1 33.5 Mean Corpuscular Volume 87.0 88.5 Mean Corpuscular Hemoglobin 29.1 28.6 Mean Corpuscular Hemoglobin 33.5 32.3 Concent Red Cell Distribution Width 16.6 16.5 Platelet Count 212 209 Mean Platelet Volume 8.4 8.1 Neutrophils (%) (Auto) 91.8 82.2 Lymphocytes (%) (Auto) 3.3 9.5 Monocytes (%) (Auto) 4.8 8.0 Eosinophils (%) (Auto) 0.0 0.1 Basophils (%) (Auto) 0.1 0.2 Neutrophils # (Auto) 11.0 7.6 Lymphocytes # (Auto) 0.4 0.9 Monocytes # (Auto) 0.6 0.7 Eosinophils # (Auto) 0.0 0.0 Basophils # (Auto) 0.0 0.0 CBC Comment DIFF FINAL DIFF FINAL Differential Comment Prothrombin Time 25.2 Prothromb Time International 2.2 Ratio Activated Partial 37.2 Thromboplast Time Sodium Level 140 141 Potassium Level 4.5 4.9 Chloride Level 103 107 Carbon Dioxide Level 28.7 28.3 Anion Gap 8 6 Blood Urea Nitrogen 39 43 Creatinine 1.27 1.47 Estimat Glomerular Filtration 40 34 Rate Random Glucose 106 92 Calcium Level 9.6 9.1 Total Creatine Kinase 65 Result Diagram: 04/27/16 0506 04/27/16 0506 Imaging Last Impressions Knee X-Ray 04/27/16 0000 Signed Impressions: Service Date/Time: Wednesday, April 27, 2016 15:54 - CONCLUSION: 1. Status post arthroplasty with no acute fracture or loosening. 2. Diffuse soft tissue prominence. Jovan Echevarria MD Chest X-Ray 04/27/16 0000 Signed Impressions: Service Date/Time: Wednesday, April 27, 2016 15:52 - CONCLUSION: No acute cardiopulmonary disease. There is no evidence of pneumonia or pulmonary edema.. Jovan Echevarria MD Shoulder X-Ray 04/26/161825 Signed Impressions: Service Date/Time: Tuesday, April 26, 2016 19:08 - CONCLUSION: 1. Fracture dislocation proximal left humerus with anterior displacement. Allan Shah MD Humerus X-Ray 04/26/161825 Signed Impressions: Service Date/Time: Tuesday, April 26, 2016 19:06 - CONCLUSION: 1. Fracture dislocation proximal humerus. Possible fracture bony glenoid. Allan Shah MD Head CT 04/26/161825 Signed Impressions: Service Date/Time: Tuesday, April 26, 2016 19:29 - CONCLUSION: 1. No acute findings. White matter ischemic changes. Allan Shah MD Upper Extremity CT 04/26/16 0000 Signed Impressions: Service Date/Time: Tuesday, April 26, 2016 21:54 - CONCLUSION: 1. Comminuted fracture of the proximal left humerus with abnormal rotation of the fracture fragments as above. Small avulsion fracture of the glenoid. Allan Shah MD Assessment and Plan Problem List: (1) CAD (coronary artery disease) ICD Code: I25.10 Status: Acute (2) DVT prophylaxis ICD Code: Z79.01 Status: Acute (3) COPD (chronic obstructive pulmonary disease) ICD Code: J44.9 Status: Chronic (4) Hypothyroidism ICD Code: E03.9 Status: Chronic (5) GERD (gastroesophageal reflux disease) ICD Code: K21.9 Status: Chronic (6) Sleep apnea ICD Code: G47.30 Status: Chronic (7) Chronic atrial fibrillation ICD Code: I48.2 Status: Chronic (8) COPD exacerbation ICD Code: J44.1 Status: Acute (9) Displaced fracture of proximal end of left humerus ICD Code: S42.202A Status: Acute (10) Anterior dislocation of left shoulder ICD Code: S43.015A Status: Acute Assessment and Plan 85-year-old female with hx of atrial fibrillation on Coumadin, CKD stage III, CAD, HTN, HLD, COPD O2 dependent, KARLY on CPAP, GERD, osteoarthritis, hypothyroidism, presents after a fall with left shoulder pain. Left Humerus Fracture/Dislocation: s/p closed reduction in the ER. Consult orthopedics, seen by Dr. Barraza, nonsurgical, recommended continue sling, f/up as outpatient in 3 weeks. Consulted PT, recommends rehab. Continue pain control with IV morphine prn pain, patient continues to require IV narcotics for pain control. Bowel regimen. Acute on Chronic Respiratory Failure secondary to COPD Exacerbation: O2 dependent. Significant wheezing on exam. Give IV Solumedrol 125mg x1 now. Start on IV Solumedrol 40mg q6h, duonebs q4h while awake and q2h prn. Incentive spirometry. Atrial Fibrillation on Coumadin: INR therapeutic at 2.2. Continue coumadin, Cardizem. HTN: chronic, continue patient's Losartan, torsemide with hold precautions. CAD: chronic, continue patient's Imdur, statin. Allergic to aspirin. HLD: chronic, continue patient's statin. GERD: chronic, continue PPI. Hypothyroidism: chronic, continue patient's Synthroid. DVT Prophylaxis: on Coumadin Written by Enid Avila, acting as scribe for Dr. Ba on 04/27/16 at 15:07. The documentation accurately reflects the work performed [id number] by me Dr. Ba on 04/27/16 at 15:07. Discussed Condition With Patient, RN Problem Qualifiers (1) Displaced fracture of proximal end of left humerus: Enid Avila PA-C Apr 27, 2016 15:08 Theresa Ba MD Apr 27, 2016 18:13
[2016-04-27] MEDS ORDERED: MAGNESIUM HYDROXIDE SUSP 30 ML CUP PO PRN (15:15)
[2016-04-27] MEDS ORDERED: MAGNESIUM HYDROXIDE SUSP 30 ML CUP PO ONE (15:15)
[2016-04-27] MEDS ORDERED: methylPREDNISolone SOD SUCC 125 MG/2 ML VIAL IV PUSH ONE (15:15)
--- NOTE | 2016-04-27 16:09 | RADRPT ---
EXAM DATE/TIME: 04/27/2016 15:52 [facility] COMPARISON: CHEST PA & LAT, January 18, 2012, 10:54. CHEST SINGLE AP, January 31, 2016, 12:15. INDICATIONS : Shortness of Breath MEDICAL HISTORY : Cardiovascular disease. Renal insufficiency. Hypertension SURGICAL HISTORY : Appendectomy. Cholecystectomy. Hysterectomy ENCOUNTER: Subsequent ACUITY: 2 days PAIN SCORE: 0/10 LOCATION: Bilateral chest FINDINGS: A single view of the chest demonstrates the lungs to be symmetrically aerated without evidence of inf iltrate or effusion. There is a stable rounded masslike structure again noted in the left lung apex w hich is benign. The cardiomediastinal contours are unremarkable. Osseous structures are intact. The re are multiple overlying electrocardiogram leads. Atherosclerotic calcifications are present in the aorta. CONCLUSION: No acute cardiopulmonary disease. There is no evidence of pneumonia or pulmonary edema.. Jovan Echevarria MD on April 27, 2016 at 16:07 Board Certified Radiologist. This report was verified electronically.
[2016-04-27] MEDS: RESP: ALBUTEROL 2.5 MG/IPRATROPIUM 0.5 MG NEB (SCH) NEB ×2 (16:12→22:05)
--- NOTE | 2016-04-27 16:35 | RADRPT ---
EXAM DATE/TIME: 04/27/2016 15:54 [facility] COMPARISON: No previous studies available for comparison. INDICATIONS : Right knee pain from a fall x1 day. MEDICAL HISTORY : Cardiovascular disease. Renal insufficiency. Hypertension SURGICAL HISTORY : Appendectomy. Cholecystectomy. Hysterectomy ENCOUNTER: Subsequent ACUITY: 2 days PAIN SCORE: 5/10 LOCATION: Right Knee FINDINGS: JOSÉ LUIS 40 examination of the left knee was obtained and demonstrates the patient is status post total kn ee arthroplasty. The femoral and tibial component are intact and in normal alignment with no evidence of fracture or loosening. There are postoperative changes involving the patella and diffuse osteopen ia. Vascular calcifications are present. There is diffuse soft tissue prominence. CONCLUSION: 1. Status post arthroplasty with no acute fracture or loosening. 2. Diffuse soft tissue prominence. Jovan Echevarria MD on April 27, 2016 at 16:31 Board Certified Radiologist. This report was verified electronically.
[2016-04-27] MEDS ORDERED: PILL SPLITTER OTHER PRN (19:15)
[2016-04-27] MEDS: BETHANECHOL CHL 25 MG TAB PO SCH ×2 (19:56→21:29)
[2016-04-27] MEDS: methylPREDNISolone SOD SUCC 40 MG/1 ML VIAL IV PUSH SCH (21:29)
[2016-04-27] MEDS: PRAVASTATIN SOD 40 MG TAB PO SCH (21:29)
[2016-04-27] MEDS: WARFARIN SOD 5 MG TAB PO SCH (21:29)
[2016-04-27] MEDS: DOCUSATE SODIUM 50 MG/SENNA 8.6 MG TAB PO SCH (21:29)
[2016-04-28] VITALS (8 sets, daily range): BP systolic 100–141; BP diastolic 58–89; PULSE 73–91; RESP 16–21; TEMP 98.1–98.9; O2SAT 92–98
[2016-04-28] MEDS: methylPREDNISolone SOD SUCC 40 MG/1 ML VIAL IV PUSH SCH ×4 (01:16→19:51)
[2016-04-28] MEDS: LEVOTHYROXINE SODIUM 25 MCG TAB PO SCH (05:09)
[2016-04-28] MEDS: LEVOTHYROXINE SODIUM 112 MCG TAB PO SCH (05:09)
[2016-04-28] MEDS: RESP: ALBUTEROL 2.5 MG/IPRATROPIUM 0.5 MG NEB (SCH) NEB ×4 (08:03→19:10)
[2016-04-28] MEDS: DOCUSATE SODIUM 50 MG/SENNA 8.6 MG TAB PO SCH ×2 (08:48→19:50)
[2016-04-28] MEDS: LOSARTAN 25 MG TAB PO SCH (08:48)
[2016-04-28] MEDS: DILTIAZEM-CD 120 MG CAP ER PO SCH (08:48)
[2016-04-28] MEDS: BETHANECHOL CHL 25 MG TAB PO SCH ×4 (08:48→19:50)
[2016-04-28] MEDS: CALCIUM/VITAMIN D 250 MG/125 U TAB PO SCH ×2 (08:48→19:50)
[2016-04-28] MEDS: TORSEMIDE 20 MG TAB PO SCH (08:48)
[2016-04-28] MEDS: SODIUM CHLORIDE 0.9% FLUSH 5 ML FLUSH FLUSH SCH ×2 (08:49→19:50)
[2016-04-28] MEDS: ISOSORBIDE MONONITRATE 60 MG TAB PO SCH (08:49)
[2016-04-28] MEDS ORDERED: POTASSIUM CHLORIDE 15 MEQ PO SCH (09:00)
--- NOTE | 2016-04-28 10:39 | HHI.PR ---
Subjective Remarks Follow up for left humerus fracture and COPD exacerbation. The patient reports feeling much better today. Pain medications helping her left shoulder pain. She believes her breathing has improved, however still wheezing with nonproductive cough. Denies fevers/chills. Her rattlesnake farmer is Dr. Carter. Still reporting constipation despite PeriColace and MOM, will try Miralax. Objective Vitals Vital Signs Date Time Temp Pulse Resp B/P Pulse Ox O2 Delivery O2 Flow Rate FiO2 04/28/16 08:24 98.1 85 20 141/89 97 04/28/16 08:05 97 Nasal Cannula 2.00 04/28/16 04:55 98.9 73 21 135/89 98 04/27/16 22:56 96 Nasal Cannula 2.00 04/27/16 22:45 89 04/27/16 21:20 98.0 86 21 125/65 98 04/27/16 15:33 18 04/27/16 14:22 97.5 98 18 101/56 98 04/27/16 12:30 98.0 82 19 109/59 96 I/O 04/27/16 04/27/16 04/27/16 04/28/16 04/28/16 04/28/16 07:00 15:00 23:00 07:00 15:00 23:00 Intake Total 400 ml Output Total 300 ml Balance 100 ml Intake Oral 400 ml Output Urine Total 300 ml # Voids 2 # Bowel Movements 0 Result Diagram: 04/27/16 0506 04/27/16 0506 Imaging Last Impressions Knee X-Ray 04/27/16 0000 Signed Impressions: Service Date/Time: Wednesday, April 27, 2016 15:54 - CONCLUSION: 1. Status post arthroplasty with no acute fracture or loosening. 2. Diffuse soft tissue prominence. Jovan Echevarria MD Chest X-Ray 04/27/16 0000 Signed Impressions: Service Date/Time: Wednesday, April 27, 2016 15:52 - CONCLUSION: No acute cardiopulmonary disease. There is no evidence of pneumonia or pulmonary edema.. Jovan Echevarria MD Shoulder X-Ray 04/26/16 1826 Signed Impressions: Service Date/Time: Tuesday, April 26, 2016 19:08 - CONCLUSION: 1. Fracture dislocation proximal left humerus with anterior displacement. Allan Shah MD Humerus X-Ray 04/26/161825 Signed Impressions: Service Date/Time: Tuesday, April 26, 2016 19:06 - CONCLUSION: 1. Fracture dislocation proximal humerus. Possible fracture bony glenoid. Allan Shah MD Head CT 04/26/161825 Signed Impressions: Service Date/Time: Tuesday, April 26, 2016 19:29 - CONCLUSION: 1. No acute findings. White matter ischemic changes. Allan Shah MD Upper Extremity CT 04/26/16 0000 Signed Impressions: Service Date/Time: Tuesday, April 26, 2016 21:54 - CONCLUSION: 1. Comminuted fracture of the proximal left humerus with abnormal rotation of the fracture fragments as above. Small avulsion fracture of the glenoid. Allan Shah MD Objective Remarks GENERAL: Well-nourished, well-developed pleasant elderly female patient in [facility]. SKIN: Warm and dry. No rash. HEAD: Normocephalic. Atraumatic. NECK: Supple. Trachea midline. CARDIOVASCULAR: Regular rate and rhythm. S1, S2 noted. No murmur appreciated. RESPIRATORY: No accessory muscle use. Diffuse wheezing throughout all lung rondon. Breath sounds equal bilaterally. GASTROINTESTINAL: Abdomen soft, non-tender, nondistended. Normoactive bowel sounds x4. MUSCULOSKELETAL: No obvious deformities. Extremities without clubbing, cyanosis , or edema. Left shoulder in sling, tender to palpation, did not attempt ROM with known fracture. NEUROLOGICAL: Awake and alert. No obvious cranial nerve deficits. Motor grossly within normal limits. Normal speech. PSYCHIATRIC: Appropriate mood and affect; insight and judgment normal. Medications and IVs Current Medications Medications (Trade) Dose Ordered Sig/Nancy Route Start Time Stop Time Status Last Admin (NS Flush) 2 ml UNSCH PRN FLUSH 04/26/16 22:00 (NS Flush) 2 ml BID FLUSH 04/27/16 09:00 04/28/16 08:49 (Narcan Inj) 0.4 mg UNSCH PRN IV 04/26/16 22:00 (Morphine Inj) 2 mg Q3H PRN IV PUSH 04/26/16 22:00 04/28/16 11:12 (Tish-Colace) 2 tab BID PO 04/27/16 21:00 04/28/16 08:48 (Milk Of Magnesia Liq) 30 ml DAILY PRN PO 04/27/16 15:15 (Urecholine) 12.5 mg QID PO 04/27/16 18:00 04/28/16 12:57 (Cardizem Cd) 120 mg DAILY PO 04/28/16 09:00 04/28/16 08:48 (Imdur) 60 mg DAILY PO 04/28/16 09:00 04/28/16 08:49 (Cozaar) 25 mg DAILY PO 04/28/16 09:00 04/28/16 08:48 (Demadex) 20 mg DAILY PO 04/28/16 09:00 04/28/16 08:48 (Coumadin) 5 mg DAILY@16 PO 04/27/16 21:00 04/27/16 21:29 (Oscal-D 250-125) 500 mg BID PO 04/28/16 09:00 04/28/16 08:48 (Synthroid) 112 mcg DAILY@06 PO 04/28/16 06:00 04/28/16 05:09 Patient Own Medication PT OWN MED: (Klor-... DAILY PO 04/28/16 09:00 Hold (Pravachol) 40 mg HS PO 04/27/16 21:00 04/27/16 21:29 (Pill Splitter) 1 ea UNSCH PRN OTHER 04/27/16 19:15 04/27/16 19:57 (Synthroid) 25 mcg DAILY@06 PO 04/28/16 06:00 04/28/16 05:09 (Miralax) 17 gm DAILY PO 04/28/16 10:45 04/28/16 11:11 (SoluMEDROL INJ) 30 mg Q8H IV PUSH 04/28/16 20:00 Urinary Catheter: No Vascular Central Line Catheter: No A/P Problem List: (1) Displaced fracture of proximal end of left humerus ICD Code: S42.202A Status: Acute Assessment and Plan 85-year-old female with hx of atrial fibrillation on Coumadin, CKD stage III, CAD, HTN, HLD, COPD O2 dependent, KARLY on CPAP, GERD, osteoarthritis, hypothyroidism, presents after a fall with left shoulder pain. Left Humerus Fracture/Dislocation: s/p closed reduction in the ER. Consult orthopedics, seen by Dr. Barraza, nonsurgical, recommended continue sling, f/up as outpatient in 3 weeks. Consulted PT, recommends rehab. Continue pain control with IV morphine prn pain, patient continues to require IV narcotics for pain control. Bowel regimen. Acute on Chronic Respiratory Failure secondary to COPD Exacerbation: O2 dependent. Significant wheezing on exam. Give IV Solumedrol 125mg x1 now. Start on IV Solumedrol 40mg q6h, duonebs q4h while awake and q2h prn. Incentive spirometry. Not much improved today, consult patient's rattlesnake farmer Dr. Carter. Atrial Fibrillation on Coumadin: INR therapeutic at 2.2. Continue coumadin, Cardizem. HTN: chronic, continue patient's Losartan, torsemide with hold precautions. CAD: chronic, continue patient's Imdur, statin. Allergic to aspirin. HLD: chronic, continue patient's statin. GERD: chronic, continue PPI. Hypothyroidism: chronic, continue patient's Synthroid. Constipation: likely secondary to narcotics. Continue with PeriColace 2tab bid, given MOM, still no relief, added Miralax daily. Monitor for BM. DVT Prophylaxis: on Coumadin Written by Enid Avila, acting as scribe for Dr. Ba on 04/28/16 at 10:37. The documentation accurately reflects the work performed [id number] by me Dr. Ba on 04/28/16 at 10:37. Problem Qualifiers (1) Displaced fracture of proximal end of left humerus: Enid Avila PA-C Apr 28, 2016 10:39 Theresa Ba MD Apr 28, 2016 16:36
[2016-04-28] MEDS: POLYETHYLENE GLYCOL 17 GM PKG PO SCH (11:11)
[2016-04-28] MEDS: MORPHINE SULFATE 4 MG/ML INJ IV PUSH PRN (11:12)
[2016-04-28] MEDS ORDERED: NORC5TAB PO (12:58)
[2016-04-28] MEDS: WARFARIN SOD 5 MG TAB PO SCH (16:23)
[2016-04-28] MEDS: PANTOPRAZOLE SOD 40 MG DELAYED RELEASE TAB PO SCH (16:23)
--- NOTE | 2016-04-28 16:42 | MB ---
cc: JAYDE LEVY DATE OF CONSULTATION 04/28/2016 HISTORY OF THE PRESENT ILLNESS Ms. Baxter is an 85-year-old white female who presented after falling a few days ago with left shoulder pain. She had a dislocated left shoulder and a fracture of the humerus. That was relocated and orthopedic saw her and is going to treat her conservatively in a sling due to her age and multiple comorbidities. I have followed her now for about 13 years with very severe COPD, FEV-1 in the range of 30-40%. She is a former smoker of 40-50 pack-years, quit smoking in the early 90s. I actually saw her just a few weeks ago at which time things were stable on a regimen of albuterol and Atrovent nebulizer three times a day, oxygen which she uses almost continuously, Pulmicort in a nebulizer and C-PAP at night for KARLY. She has had no respiratory difficulty of significance although she has been a little short of breath here in the hospital with wheezing, so she has been placed back on nebulized treatments and IV corticosteroids. She has had no purulent sputum or hemoptysis. No chest pain and she had no URI prior to this incident. PAST MEDICAL HISTORY 1. She has had total knee replacements bilaterally. 2. A right hip repair. 3. A left lung nodule was removed 10 years ago. 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 4. Chronic atrial fibrillation followed by Dr. Villagran. 5. And also a left total hip replacement. ALLERGIES ASPIRIN. MEDICATIONS Reviewed in the EMR. SOCIAL HISTORY She remains independent. Smoking noted. No excessive alcohol use. She is . 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 FAMILY HISTORY Father at young age of a blood clot. Mother had COPD, in her 80s. No siblings. Two children good health. PHYSICAL EXAMINATION VITAL SIGNS: 98 degrees, 110/60, respirations 18, saturations 96-98% on 2 liters of oxygen. HEENT: Sclerae anicteric. Mucous membranes are moist. NECK: The neck veins are not distended. Left arm is in a sling. CHEST: Reveals some minimal scattered wheezing. No congestion. No basilar rales. CARDIOVASCULAR: Irregular rhythm. No harsh murmur. No audible S3. ABDOMEN: Soft. EXTREMITIES: No pitting edema or calf tenderness. No cyanosis or clubbing. ASSESSMENT AND PLAN Ms. Baxter has severe COPD, currently reasonably well compensated with a recent left shoulder fracture and dislocation. She is being evaluated for [facility]. I will drop back the steroid dose a bit, continue her nebulized treatments four times a day with further diagnostic and/or therapeutic intervention depending on her ongoing clinical course and response to therapy. She is on Coumadin with the atrial fibrillation. Her INR is therapeutic, so that is adequate DVT prophylaxis. Further diagnostic and/or therapeutic intervention will depend on her ongoing clinical course. R. Jayde Levy MD RSRichardson/KK /3:33 PM /4:30 PM
[2016-04-28] MEDS: PRAVASTATIN SOD 40 MG TAB PO SCH (19:58)
--- NOTE | 2016-04-28 23:33 | EKG ---
Date Performed: 04/26/2016 Time Performed: 18:43:27 PTAGE: 85 years EKG: Sinus rhythm MODERATE ST DEPRESSION ABNORMAL ECG PREVIOUS TRACING : 06/27/2014 14.54 Compared to prior tracing no significant change DOCTOR: Brandon Sylvester Interpretating Date/Time 04/28/2016 23:31:44
[2016-04-29] VITALS (8 sets, daily range): BP systolic 109–125; BP diastolic 55–65; PULSE 64–86; RESP 16–20; TEMP 96.1–98.9; O2SAT 95–99
[2016-04-29] MEDS: methylPREDNISolone SOD SUCC 40 MG/1 ML VIAL IV PUSH SCH ×3 (03:30→20:39)
[2016-04-29] MEDS: LEVOTHYROXINE SODIUM 25 MCG TAB PO SCH (05:56)
[2016-04-29] MEDS: LEVOTHYROXINE SODIUM 112 MCG TAB PO SCH (05:56)
[2016-04-29 06:54] LABS: INTERNATIONAL NORMALIZED RATIO 2.4 RATIO; PROTHROMBIN TIME - PATIENT 27.3 SEC (9.8-11.6)
[2016-04-29] MEDS: RESP: ALBUTEROL 2.5 MG/IPRATROPIUM 0.5 MG NEB (SCH) NEB ×4 (07:44→19:28)
[2016-04-29 07:45] LABS: BICARBONATE 28.9 MEQ/L (21.0-32.0); POTASSIUM 5.3 MEQ/L (3.5-5.1)
[2016-04-29] MEDS: DOCUSATE SODIUM 50 MG/SENNA 8.6 MG TAB PO SCH ×2 (08:13→20:38)
[2016-04-29] MEDS: BETHANECHOL CHL 25 MG TAB PO SCH ×4 (08:13→20:38)
[2016-04-29] MEDS: LOSARTAN 25 MG TAB PO SCH (08:13)
[2016-04-29] MEDS: CALCIUM/VITAMIN D 250 MG/125 U TAB PO SCH ×2 (08:13→20:38)
[2016-04-29] MEDS: POLYETHYLENE GLYCOL 17 GM PKG PO SCH (08:14)
[2016-04-29] MEDS: SODIUM CHLORIDE 0.9% FLUSH 5 ML FLUSH FLUSH SCH ×2 (08:14→20:38)
[2016-04-29] MEDS: TORSEMIDE 20 MG TAB PO SCH (08:14)
[2016-04-29] MEDS: DILTIAZEM-CD 120 MG CAP ER PO SCH (08:31)
[2016-04-29] MEDS: ISOSORBIDE MONONITRATE 60 MG TAB PO SCH (08:31)
--- NOTE | 2016-04-29 09:36 | HHI.PR ---
Subjective Remarks Follow-up for left humerus fracture and COPD exacerbation. The patient continues her for clinical improvement overnight. Shortness breath is improving. Her cough is less productive overnight. Her shoulder pain is controlled. She states that she got up and walked some yesterday. She did have some sweats overnight. She has been having some constipation. She denies any chest pain, nausea, vomiting. She is on 2 L of oxygen at home. Objective Vitals Vital Signs Date Time Temp Pulse Resp B/P Pulse Ox O2 Delivery O2 Flow Rate FiO2 04/29/16 07:46 95 Nasal Cannula 2.00 04/29/16 07:23 96.1 68 16 119/62 04/29/16 02:59 98.9 71 17 121/65 97 04/28/16 20:20 98.4 83 18 115/58 97 04/28/16 19:10 92 Nasal Cannula 2.00 04/28/16 14:56 98.2 87 16 100/58 96 04/28/16 12:27 98.4 91 17 136/73 98 I/O 04/28/16 04/28/16 04/28/16 04/29/16 04/29/16 04/29/16 07:00 15:00 23:00 07:00 15:00 23:00 Intake Total 500 ml 500 ml Output Total 400 ml Balance 500 ml 500 ml -400 ml Intake Oral 500 ml 500 ml Output Urine Total 400 ml # Voids 2 1 1 Result Diagram: 04/27/16 0506 04/29/16 0601 Imaging Last Impressions Knee X-Ray 04/27/16 0000 Signed Impressions: Service Date/Time: Wednesday, April 27, 2016 15:54 - CONCLUSION: 1. Status post arthroplasty with no acute fracture or loosening. 2. Diffuse soft tissue prominence. Jovan Echevarria MD Chest X-Ray 04/27/16 0000 Signed Impressions: Service Date/Time: Wednesday, April 27, 2016 15:52 - CONCLUSION: No acute cardiopulmonary disease. There is no evidence of pneumonia or pulmonary edema.. Jovan Echevarria MD Shoulder X-Ray 04/26/16 1826 Signed Impressions: Service Date/Time: Tuesday, April 26, 2016 19:08 - CONCLUSION: 1. Fracture dislocation proximal left humerus with anterior displacement. Allan Shah MD Humerus X-Ray 04/26/161825 Signed Impressions: Service Date/Time: Tuesday, April 26, 2016 19:06 - CONCLUSION: 1. Fracture dislocation proximal humerus. Possible fracture bony glenoid. Allan Shah MD Head CT 04/26/161825 Signed Impressions: Service Date/Time: Tuesday, April 26, 2016 19:29 - CONCLUSION: 1. No acute findings. White matter ischemic changes. Allan Shah MD Upper Extremity CT 04/26/16 0000 Signed Impressions: Service Date/Time: Tuesday, April 26, 2016 21:54 - CONCLUSION: 1. Comminuted fracture of the proximal left humerus with abnormal rotation of the fracture fragments as above. Small avulsion fracture of the glenoid. Allan Shah MD Objective Remarks GENERAL: Well-developed well-nourished. In no acute distress. SKIN: Warm and dry. No lesions noted. HEENT: Normocephalic. Pupils equal and round. Mucous membranes pink and moist. CARDIOVASCULAR: Regular rate and rhythm. No murmur appreciated. RESPIRATORY: No accessory muscle use. Diminished breath sounds with mild wheezing. GASTROINTESTINAL: Abdomen soft, non-tender, nondistended. Bowel sounds x4. MUSCULOSKELETAL: Left arm in sling. No clubbing or cyanosis. No edema. NEUROLOGICAL: Awake and alert. No focal neurological deficits. Moves upper and lower extremities spontaneously. Normal speech. PSYCHIATRIC: Appropriate mood and affect; insight and judgment normal. A/P Problem List: (1) Displaced fracture of proximal end of left humerus ICD Code: S42.202A Status: Acute (2) COPD exacerbation ICD Code: J44.1 Status: Acute Assessment and Plan 85-year-old female with hx of atrial fibrillation on Coumadin, CKD stage III, CAD, HTN, HLD, COPD O2 dependent, KARLY on CPAP, GERD, osteoarthritis, hypothyroidism, presents after a fall with left shoulder pain. Left Humerus Fracture/Dislocation: s/p closed reduction in the ER. Consult orthopedics, seen by Dr. Barraza, nonsurgical, recommended continue sling, f/up as outpatient in 3 weeks. Consulted PT, recommends rehab. Oral and intravenous narcotics as needed for pain control. Bowel regimen. Acute on Chronic Respiratory Failure secondary to COPD Exacerbation: O2 dependent. Significant wheezing on exam. Continue on IV Solumedrol, tapering. Duonebs q4h while awake and q2h prn. Incentive spirometry. Consulted patient's tour guide Dr. Carter, appreciate recommendations. Atrial Fibrillation on Coumadin: INR therapeutic. Continue coumadin, Cardizem. HTN: chronic, continue patient's Losartan, torsemide with hold precautions. CAD: chronic, continue patient's Imdur, statin. Allergic to aspirin. HLD: chronic, continue patient's statin. GERD: chronic, continue PPI. Hypothyroidism: chronic, continue patient's Synthroid. Constipation: likely secondary to narcotics. Continue with PeriColace 2tab bid, added Miralax daily. Give additional milk of magnesia 1. Monitor for BM. DVT Prophylaxis: on Coumadin Written by David Lacy, acting as scribe for Dr. aB on 04/29/16 at 09:36. The documentation accurately reflects the work performed [id number] by me Dr. Ba on 04/29/16 at 09:36. Discharge Planning SNF for DC, case management consulted. Problem Qualifiers (1) Displaced fracture of proximal end of left humerus: David Lacy Apr 29, 2016 09:36 Theresa Ba MD Apr 29, 2016 11:23
[2016-04-29] MEDS ORDERED: MAGNESIUM HYDROXIDE SUSP 30 ML CUP PO ONE (09:45)
[2016-04-29] MEDS ORDERED: ACETAMINOPHEN/HYDROcodone 325 MG/5 MG TAB PO PRN (09:45)
[2016-04-29] MEDS ORDERED: ACETAMINOPHEN/HYDROcodone 325 MG/10 MG TAB PO PRN (09:45)
[2016-04-29] MEDS: PANTOPRAZOLE SOD 40 MG DELAYED RELEASE TAB PO SCH (18:23)
[2016-04-29] MEDS: WARFARIN SOD 5 MG TAB PO SCH (18:24)
[2016-04-29] MEDS: PRAVASTATIN SOD 40 MG TAB PO SCH (20:38)
[2016-04-30 02:58] VITALS: BP 135/63; PULSE 71; RESP 19; TEMP 97.9; O2SAT 96
[2016-04-30] MEDS: LEVOTHYROXINE SODIUM 112 MCG TAB PO SCH (06:04)
[2016-04-30] MEDS: methylPREDNISolone SOD SUCC 40 MG/1 ML VIAL IV PUSH SCH (06:04)
[2016-04-30] MEDS: LEVOTHYROXINE SODIUM 25 MCG TAB PO SCH (06:04)
[2016-04-30 07:23] VITALS: BP 163/86; PULSE 66; RESP 18; TEMP 97.9; O2SAT 94
[2016-04-30] MEDS: RESP: ALBUTEROL 2.5 MG/IPRATROPIUM 0.5 MG NEB (SCH) NEB ×2 (08:16→11:29)
[2016-04-30] MEDS: BETHANECHOL CHL 25 MG TAB PO SCH (08:57)
[2016-04-30] MEDS: DOCUSATE SODIUM 50 MG/SENNA 8.6 MG TAB PO SCH (08:57)
[2016-04-30] MEDS: TORSEMIDE 20 MG TAB PO SCH (08:57)
[2016-04-30] MEDS: DILTIAZEM-CD 120 MG CAP ER PO SCH (08:57)
[2016-04-30] MEDS: LOSARTAN 25 MG TAB PO SCH (08:57)
[2016-04-30] MEDS: ISOSORBIDE MONONITRATE 60 MG TAB PO SCH (08:58)
[2016-04-30] MEDS: CALCIUM/VITAMIN D 250 MG/125 U TAB PO SCH (08:58)
[2016-04-30] MEDS: SODIUM CHLORIDE 0.9% FLUSH 5 ML FLUSH FLUSH SCH (08:58)
[2016-04-30] MEDS: POLYETHYLENE GLYCOL 17 GM PKG PO SCH (08:59)
[2016-04-30 11:29] VITALS: O2SAT 95
[2016-04-30] MEDS ORDERED: PRED10PA PO (11:59)
--- NOTE | 2016-04-30 12:08 | HHI.DS ---
Discharge Summary Admission Date Apr 27, 2016 at 15:08 Discharge Date: Apr 30, 2016 Admitting Diagnosis Intractable Pain in left arm s/p fracture dislocation proximal humer (1) Displaced fracture of proximal end of left humerus ICD Code: S42.202A Diagnosis: Principal (2) COPD exacerbation ICD Code: J44.1 Diagnosis: Secondary Procedures none Brief History - From Admission 85-year-old female with hx of atrial fibrillation on Coumadin, CKD stage III, CAD, HTN, HLD, COPD O2 dependent, KARLY on CPAP, GERD, osteoarthritis, hypothyroidism, presents after a fall with left shoulder pain. The patient reports yesterday 04/26/16 she fell to the floor after tripping over her oxygen tubing. She reports significant amount of left shoulder pain following the fall. She was unable to ambulate afterwards so she waited on the floor for her son to arrive. She denies any LOC/syncope. She believes she might have hit her head because it feels sore, but denies any significant headache, lightheadedness , or dizziness. She denies any other medical complaints including no chest pain , abdominal pain, or urinary complaints. She states she has significant shortness of breath and dry cough at baseline with her COPD. Upon arrival to the ED, she was found to have a left humerus fracture and dislocation, s/p closed reduction in the ER. CBC/BMP: 04/27/16 0506 04/29/16 0601 Significant Findings Laboratory Tests Test 04/29/16 06:01 Prothrombin Time 27.3 SEC (9.8-11.6) Sodium Level 135 MEQ/L (136-145) Potassium Level 5.3 MEQ/L (3.5-5.1) Blood Urea Nitrogen 49 MG/DL (7-18) Creatinine 1.45 MG/DL (0.50-1.00) Estimat Glomerular Filtration 34 ML/MIN (>89) Rate Random Glucose 125 MG/DL (74-106) Calcium Level 10.2 MG/DL (8.5-10.1) PE at Discharge GENERAL: Well-developed well-nourished. In no acute distress. SKIN: Warm and dry. No lesions noted. HEENT: Normocephalic. Pupils equal and round. Mucous membranes pink and moist. CARDIOVASCULAR: Regular rate and rhythm. No murmur appreciated. RESPIRATORY: No accessory muscle use. Diminished breath sounds with no wheezing GASTROINTESTINAL: Abdomen soft, non-tender, nondistended. Bowel sounds x4. MUSCULOSKELETAL: Left arm in sling. No clubbing or cyanosis. No edema. NEUROLOGICAL: Awake and alert. No focal neurological deficits. Moves upper and lower extremities spontaneously. Normal speech. PSYCHIATRIC: Appropriate mood and affect; insight and judgment normal. Pt update on day of discharge Patient denies any shortness of breath or wheezing. She reports her pain is okay. She had a bowel movement. She is ready to go to rehabilitation. Hospital Course 85-year-old female with hx of atrial fibrillation on Coumadin, CKD stage III, CAD, HTN, HLD, COPD O2 dependent, KARLY on CPAP, GERD, osteoarthritis, hypothyroidism, presents after a fall with left shoulder pain. Left Humerus Fracture/Dislocation: s/p closed reduction in the ER. Consulted orthopedics, seen by Dr. Barraza, nonsurgical, recommended continue sling, f/up as outpatient in 3 weeks. Consulted PT, recommends rehab. Pain controlled with oral narcotics. Bowel regimen. Acute on Chronic Respiratory Failure secondary to COPD Exacerbation: O2 dependent. Wheezing improved with IV Solu-Medrol, continue tapering to oral at discharge. Continue nebs as needed. Consulted patient's steamfitter supervisor Dr. Carter, appreciate recommendations. Atrial Fibrillation on Coumadin: INR therapeutic. Continue coumadin, Cardizem. HTN: chronic, continue patient's Losartan, torsemide with hold precautions. CAD: chronic, continue patient's Imdur, statin. Allergic to aspirin. HLD: chronic, continue patient's statin. GERD: chronic, continue PPI. Hypothyroidism: chronic, continue patient's Synthroid. Constipation: likely secondary to narcotics. DM 2/. Continue with bowel regimen. Pt Condition on Discharge: Stable Discharge Disposition: Discharge to SNF Discharge Time: > 30 minutes Discharge Instructions DIET: Follow Instructions for: Heart Healthy Diet Activities you can perform: Weight Bearing as Isma Activities to Avoid: Lifting/Bending Other Activity Instructions: Sling and swath left upper extremity for comfort. Can remove it for range of motion exercises of elbow and wrist. Follow up Referrals: Orthopedics - 3 Weeks @ [facility] with Rajeev Barraza MD PCP Follow-up - 2-3 Days with Jose Rafael Granado MD Pulmonology - 2 Weeks with Samara Carter MD New Medications: Hydrocodone-Acetaminophen (Bland) 5-325 mg Tab 1 TAB PO Q4H PRN PAIN #20 Ref 0 TAB Prednisone (21) 10 mg tab Dose Pack (Prednisone (21) 10 mg tab Dose Pack) 10 Mg Pack 10 MG PO DIRECTED Broncospasm #1 Ref 0 DSPK Sennosides-Docusate Sodium (Senna Plus 8.6-50 mg) 1 Tab Tab 2 TAB PO BID Constipation #20 TAB Continued Medications: Bethanechol (Bethanechol) 25 Mg Tab 12.5 MG PO QID Urinary Symptom Managemen Ref 0 TAB Budesonide Neb (Budesonide Neb) 0.5 Mg/2 Ml Neb 0.5 MG NEB Q12HR NEB Breathing Treatment #60 Ref 0 NEBULE Calcium Carbonate-Cholecalciferol (Calcium 1000 + D) 1,000-800 Mg-Unit Tab 1 TAB PO DAILY TAB Diltiazem CD 24 HR (Diltiazem CD 24 HR) 120 Mg Caper 120 MG PO DAILY #30 Ref [address] (Nexium) 40 Mg Capdr 40 MG PO AC DINNER Ref 0 CAP Fluticasone Nasal [place] (Flonase Allergy Relief Nasal [place]) 50 Mcg/Act [place] 1 SPRAY EACH NARE BID PRN ALLERGIES #1 Ref 0 BOTTLE Ipratropium-Albuterol Inh (Combivent Respimat Inh) 20-100 Long Term/Act Aero 1 PUFF INH QID PRN SHORTNESS OF BREATH #1 Ref 0 INHALER Ipratropium-Albuterol Neb (Duoneb) 0.5-2.5 Mg/3 Ml Neb 1 NEBULE INH QID PRN SHORTNESS OF BREATH #120 Ref 0 NEBULE Isosorbide Mononitrate ER (Isosorbide Mononitrate ER) 60 Mg Tab 60 MG PO DAILY Prevent Chest Pain #30 Ref 0 TAB Levothyroxine (Synthroid) 137 Mcg Tab 137 MCG PO DAILY Thyroid #30 Ref 0 TAB Losartan (Cozaar) 25 Mg Tab 25 MG PO DAILY Blood Pressure Management #30 Ref 0 TAB Potassium Chloride Microencaps (Klor-Con M15) 15 Meq Tab 15 MEQ PO DAILY Electrolyte Replacement #30 Ref 0 TAB Simvastatin (Simvastatin) 20 Mg Tab 20 MG PO HS Cholesterol Management #30 Ref 0 TAB Torsemide (Torsemide) 20 Mg Tab 20 MG PO DAILY #30 Ref 0 TAB Warfarin (Warfarin) 5 Mg Tab 5 MG PO HS Blood Clot Prevention #30 Ref 0 TAB Additional Information Written by David Lacy, acting as scribe for Dr. Ba on 04/30/16 at 12:09. The documentation accurately reflects the work performed [id number] by vt Dr. Ba on 04/30/16 at 12:09. David Lacy Apr 30, 2016 12:08 Theresa Ba MD Apr 30, 2016 16:11
[2016-04-30] MEDS ORDERED: SENN1TAB PO (12:09)
[2016-04-30 12:13] VITALS: BP 116/75; PULSE 120; RESP 18; TEMP 97.8; O2SAT 95
== END 2016-04-30 16:11 | DRG 562 ==
LOC: NEPC 18:01 → NEDA 21:40 → NEPFCDU 04-27 02:02 → OBSVTOIN 04-27 15:08
PROVIDERS: ADMIT Hospitalist; ATTEND Hospitalist
DX: S42.202A Unspecified fracture of upper end of left humerus, initial encounter for closed fracture (principal); J96.20 Acute and chronic respiratory failure, unspecified whether with hypoxia or hypercapnia; E11.22 Type 2 diabetes mellitus with diabetic chronic kidney disease; J44.1 Chronic obstructive pulmonary disease with (acute) exacerbation; I48.2 Chronic atrial fibrillation; M47.9 Spondylosis, unspecified; Z79.01 Long term (current) use of anticoagulants; I12.9 Hypertensive chronic kidney disease with stage 1 through stage 4 chronic kidney disease, or unspecified chronic kidney disease; N18.3 Chronic kidney disease, stage 3 (moderate); Z99.81 Dependence on supplemental oxygen; Z91.81 History of falling; Y92.009 Unspecified place in unspecified non-institutional (private) residence as the place of occurrence of the external cause; W01.0XXA Fall on same level from slipping, tripping and stumbling without subsequent striking against object, initial encounter; E03.9 Hypothyroidism, unspecified; E78.5 Hyperlipidemia, unspecified; G47.33 Obstructive sleep apnea (adult) (pediatric); I25.10 Atherosclerotic heart disease of native coronary artery without angina pectoris; K21.9 Gastro-esophageal reflux disease without esophagitis; K59.03 Drug induced constipation; S42.143A Displaced fracture of glenoid cavity of scapula, unspecified shoulder, initial encounter for closed fracture; T40.605A Adverse effect of unspecified narcotics, initial encounter; Z87.891 Personal history of nicotine dependence; Z96.642 Presence of left artificial hip joint
CPT/HCPCS: 23665; 70450; 71010; 73030; 73200; 73564; 80048; 82550; 85025; 85610; 85730; 93005; 94150; 94640; 94664; 94770; 96361; 96374; 96375; 96376; 99152; G0378; G8987-GP; G8988-GP; J1170; J2270; J2405; J2920; J2930; J7040

== ENCOUNTER → 2016-07-22 | Outpatient (CLI) | payer MEDICARE, OTHER ==
[~2016-07-22] MED LIST changes: -ALBU0.63 NEB; -BENZ100 PO; +BUDE0.5S NEB; -CALC1TAB87 PO; +CALCTAB80 PO; +IPRASOL INH; -ISOS30TA15 PO; +ISOS60TA PO; +NORC5TAB PO; -PULM180I INH; +SENN1TAB PO; +WARF-23 PO; -WARF-60 PO; -ZITH500T PO
[2016-07-22 11:33] LABS: ALKALINE PHOSPHATASE 113 U/L (45-117); ALT (GPT) 12 U/L (10-53); ANION GAP 6 MEQ/L (5-15); AST (GOT) 12 U/L (15-37); BICARBONATE 31.6 MEQ/L (21.0-32.0); BLOOD UREA NITROGEN 20 MG/DL (7-18); CHLORIDE 104 MEQ/L (98-107); GLOMERULAR FILTRATION RATE 51 ML/MIN (>89); GLUCOSE,FASTING 87 MG/DL (74-99); HDL CHOLESTEROL 53.9 MG/DL (40.0-60.0); LDL CHOLESTEROL 40 MG/DL (0-99); POTASSIUM 4.3 MEQ/L (3.5-5.1); SODIUM (NA) 142 MEQ/L (136-145); TOTAL BILIRUBIN ADULT 0.5 MG/DL (0.2-1.0)
[2016-07-22 11:47] LABS: CREATINE KINASE 48 U/L (26-192)
== END ==
LOC: PLAB 08:54
DX: E03.9 Hypothyroidism, unspecified (principal); N18.3 Chronic kidney disease, stage 3 (moderate); E78.5 Hyperlipidemia, unspecified; Z79.899 Other long term (current) drug therapy
CPT/HCPCS: 36415; 80053; 80061; 82550; 84443

== ENCOUNTER → 2016-09-23 | Outpatient (CLI) | payer MEDICARE, OTHER ==
[2016-09-23 16:01] LABS: BICARBONATE 30.9 MEQ/L (21.0-32.0); POTASSIUM 4.5 MEQ/L (3.5-5.1)
== END ==
LOC: PLAB 11:54
DX: N18.3 Chronic kidney disease, stage 3 (moderate) (principal); Z79.899 Other long term (current) drug therapy
CPT/HCPCS: 36415; 80048

== ENCOUNTER → 2016-10-25 | Outpatient (CLI) | payer MEDICARE, OTHER ==
[2016-10-25 13:09] LABS: BICARBONATE 30.9 MEQ/L (21.0-32.0); POTASSIUM 4.8 MEQ/L (3.5-5.1)
== END ==
LOC: PLAB 09:01
DX: N18.3 Chronic kidney disease, stage 3 (moderate) (principal); Z79.899 Other long term (current) drug therapy
CPT/HCPCS: 36415; 80048

== ENCOUNTER → 2016-11-23 | Outpatient (CLI) | payer MEDICARE, OTHER ==
[~2016-11-23] MED LIST changes: +ALBU0.08 INH; +BUDE.25I NEB; +DOXY100T PO; +PRED10PA2 PO; +WARF-60 PO
[2016-11-23 12:49] LABS: POTASSIUM 4.7 MEQ/L (3.5-5.1)
[2016-11-23 12:54] LABS: BICARBONATE 30.1 MEQ/L (21.0-32.0)
== END ==
LOC: PLAB 09:47
DX: N18.3 Chronic kidney disease, stage 3 (moderate) (principal); Z79.899 Other long term (current) drug therapy
CPT/HCPCS: 36415; 80048

== ENCOUNTER 2016-12-06 12:53 | Inpatient (IN) | payer MEDICARE, OTHER ==
[~2016-12-06] VITALS: Ht 157.5 cm; Wt 71.8 kg
[2016-12-06] VITALS (9 sets, daily range): BP systolic 92–142; BP diastolic 47–77; PULSE 78–98; RESP 16–22; TEMP 98.1–98.6; O2SAT 88–97
[~2016-12-06 12:53] MED LIST changes: -ALBU0.08 INH; -BUDE.25I NEB; -DOXY100T PO; -PRED10PA2 PO; -WARF-60 PO
[2016-12-06] MEDS ORDERED: BUDE.25I NEB (13:07)
--- NOTE | 2016-12-06 13:14 | PD ---
HPI Chief Complaint: Respiratory Distress Time Seen by Provider: 13:08 Travel History International Travel<30 days: No Contact w/Intl Traveler<30days: No Traveled to known affect area: No History of Present Illness HPI This 86-year-old female is complaining of shortness of breath. She says she been short of breathsince last Tuesday. He developed some cough and congestion though she was getting a cold. She's had increasing shortness of breath since then. She has a history of severe COPD. She is followed by Dr. Deshaun melara. She has been coughing. She has had sputum production. She has felt hot at times. PFSH Past Medical History Asthma: No Atrial Fibrillation: Yes Autoimmune Disease: No Blood Disorders: No Anxiety: No Depression: No Heart Rhythm Problems: No Cancer: Yes (SKIN) Cardiovascular Problems: Yes (ATRIAL FIBRILLATION,CAD) High Cholesterol: Yes Chemotherapy: No Congestive Heart Failure: No COPD: Yes Cerebrovascular Accident: No Diabetes: No Diminished Hearing: No Endocrine: Yes Gastrointestinal Disorders: Yes (ACID REFLUX, HX OF ESOPHAGEAL STRICTURE/ DILATION) GERD: Yes Glaucoma: No Genitourinary: No Hepatitis: No Hiatal Hernia: No Hypertension: Yes Immune Disorder: No Musculoskeletal: Yes (OSTEOARTHRITIS, BACK PROBLEMS) Neurologic: No Psychiatric: No Reproductive: No Respiratory: Yes (COPD, SLEEP APNEA, USES CPAP) Myocardial Infarction: No Radiation Therapy: No Seizures: No Sleep Apnea: No Thyroid Disease: Yes Ulcer: No Past Surgical History Abdominal Surgery: Yes (APPENDECTOMY, CHOLECYSTECTOMY) AICD: No Appendectomy: Yes Cholecystectomy: Yes Eye Surgery: Yes (MAIKEL CATARACT SURGERY) Genitourinary Surgery: No Gynecologic Surgery: Yes (HYSTERECTOMY) Hysterectomy: Yes Pacemaker: No Other Surgery: Yes Social History Alcohol Use: Yes (RARE) Tobacco Use: No (quit 26 years ago) Substance Use: No Allergies-Medications (Allergen,Severity, Reaction): Coded Allergies: aspirin (Unverified Allergy, Severe, Rash, 12/06/16) Reported Meds & Prescriptions Reported Meds & Active Scripts Active Reported Pulmicort Respules (Budesonide) 0.25 Mg/2 Ml Neb 0.25 Mg NEB Q12HR NEB Isosorbide Mononitrate ER (Isosorbide Mononitrate) 60 Mg Tab 60 Mg PO DAILY Calcium 1000 + D (Calcium Carbonate-Cholecalciferol) 1,000-800 Mg-Unit Tab 1 Tab PO DAILY Warfarin 5 Mg Tab 5 Mg PO HS Klor-Con M15 (Potassium Chloride Microencaps) 15 Meq Tab 15 Meq PO DAILY Torsemide 20 Mg Tab 20 Mg PO DAILY Bethanechol 25 Mg Tab 12.5 Mg PO QID Synthroid (Levothyroxine Sodium) 137 Mcg Tab 137 Mcg PO DAILY Flonase Nasal [place] (Fluticasone Nasal [place]) 50 Mcg/Act [place] 1 [place] EACH NARE BID PRN Diltiazem CD 24 HR 120 Mg Caper 120 Mg PO DAILY Cozaar (Losartan Potassium) 25 Mg Tab 25 Mg PO DAILY Nexium (Esomeprazole DR) 40 Mg Capdr 40 Mg PO AC DINNER Combivent Respimat Inh (Ipratropium-Albuterol Inh) 20-100 [place]/Act Aero 1 Puff INH QID PRN Simvastatin 20 Mg Tab 20 Mg PO HS Review of Systems General / Constitutional: Positive: Fever, Chills Eyes: No: Diploplia, Blurred Vision HENT: No: Headaches, Vertigo Cardiovascular: Positive: Irregular Rhythm, Edema, No: Chest Pain or Discomfort , Palpitations Respiratory: Positive: Cough, Shortness of Breath Gastrointestinal: No: Nausea, Vomiting Genitourinary: No: Urgency, Frequency Musculoskeletal: No: Myalgias, Arthralgias Skin: No Rash, No Itching Neurologic: No: Weakness Hematologic/Lymphatic: No: Easy Bruising Physical Exam Narrative GENERAL: Well-appearing female. Moderate respiratory distress SKIN: Focused skin assessment warm/dry. HEAD: Atraumatic. Normocephalic. EYES: Pupils equal and round. No scleral icterus. No injection or drainage. ENT: No nasal bleeding or discharge. Mucous membranes pink and moist. NECK: Trachea midline. No JVD. CARDIOVASCULAR: Regular rate and rhythm. No murmur appreciated. RESPIRATORY: There is accessory muscle use. Bilateral rhonchi and occasional rales. Breath sounds equal bilaterally. GASTROINTESTINAL: Abdomen soft, non-tender, nondistended. Hepatic and splenic margins not palpable. MUSCULOSKELETAL: No obvious deformities. No clubbing. No cyanosis. Bilateral pedal edema. NEUROLOGICAL: Awake and alert. No obvious cranial nerve deficits. Motor grossly within normal limits. Normal speech. PSYCHIATRIC: Appropriate mood and affect; insight and judgment normal. Data Data Last Documented VS Vital Signs Date Time Temp Pulse Resp B/P (MAP) Pulse Ox O2 Delivery O2 Flow Rate FiO2 12/06/16 13:32 97 Nasal Cannula 2.00 12/06/16 13:31 90 20 97/57 (70) 12/06/16 13:05 98.6 Orders Orders Complete Blood Count With Diff (12/06/16 13:08) Comprehensive Metabolic Panel (12/06/16 13:08) B-Type Natriuretic Peptide (12/06/16 13:08) Prothrombin Time / Inr (Pt) (12/06/16 13:08) Troponin I (12/06/16 13:08) Urinalysis - C+S If Indicated (12/06/16 13:08) Influenzae A/B Antigen (12/06/16 13:08) Blood Culture (12/06/16 13:08) Iv Access Insert/Monitor (12/06/16 13:08) Electrocardiogram (12/06/16 13:08) Ecg Monitoring (12/06/16 13:08) Oximetry (12/06/16 13:08) Oxygen Administration (12/06/16 13:08) Chest, Single Ap (12/06/16 13:08) Sodium Chloride 0.9% Flush (Ns Flush) (12/06/16 13:15) Methylprednisolone So Succ Inj (Solumedr (12/06/16 13:15) Albuterol-Ipratropium Neb (Duoneb Neb) (12/06/16 13:15) Ns (Bolus) Inj (12/06/16 14:15) Ceftriaxone Inj (Rocephin Inj) (12/06/16 14:15) Labs Laboratory Tests Test 12/06/16 13:10 White Blood Count 9.6 TH/MM3 Red Blood Count 4.17 MIL/MM3 Hemoglobin 12.5 GM/DL Hematocrit 37.4 % Mean Corpuscular Volume 89.6 FL Mean Corpuscular Hemoglobin 29.9 PG Mean Corpuscular Hemoglobin Concent 33.3 % Red Cell Distribution Width 16.4 % Platelet Count 223 TH/MM3 Mean Platelet Volume 8.5 FL Neutrophils (%) (Auto) 80.8 % Lymphocytes (%) (Auto) 10.3 % Monocytes (%) (Auto) 7.4 % Eosinophils (%) (Auto) 1.3 % Basophils (%) (Auto) 0.2 % Neutrophils # (Auto) 7.8 TH/MM3 Lymphocytes # (Auto) 1.0 TH/MM3 Monocytes # (Auto) 0.7 TH/MM3 Eosinophils # (Auto) 0.1 TH/MM3 Basophils # (Auto) 0.0 TH/MM3 CBC Comment DIFF FINAL Differential Comment Prothrombin Time 30.0 SEC Prothromb Time International Ratio 2.6 RATIO Blood Urea Nitrogen 17 MG/DL Creatinine 1.20 MG/DL Random Glucose 90 MG/DL Total Protein 6.9 GM/DL Albumin 3.8 GM/DL Calcium Level 9.7 MG/DL Alkaline Phosphatase 100 U/L Aspartate Amino Transf (AST/SGOT) 10 U/L Alanine Aminotransferase (ALT/SGPT) 13 U/L Total Bilirubin 0.5 MG/DL Sodium Level 137 MEQ/L Potassium Level 4.4 MEQ/L Chloride Level 102 MEQ/L Carbon Dioxide Level 27.2 MEQ/L Anion Gap 8 MEQ/L Estimat Glomerular Filtration Rate 42 ML/MIN Troponin I LESS THAN 0.02 NG/ML B-Type Natriuretic Peptide 188 PG/ML MDM Medical Decision Making Medical Screen Exam Complete: Yes Emergency Medical Condition: Yes Medical Record Reviewed: Yes Differential Diagnosis Differential includes CHF, pneumonia, COPD exacerbation Narrative Course EKG shows atrial fibrillation. Ventricular rate is 84 chest x-ray shows moderate emphysematous changes with no pneumothorax. Patient has been given repeated nebulizer treatments and Solu-Medrol. Her respiratory distress has improved though she has persistent bilateral wheezing. Diagnosis Primary Impression: COPD exacerbation Aidan Henson MD Dec 06, 2016 13:14
[2016-12-06] MEDS ORDERED: SODIUM CHLORIDE 0.9% FLUSH 10 ML FLUSH IVF PRN (13:15)
[2016-12-06] MEDS ORDERED: methylPREDNISolone SOD SUCC 125 MG/2 ML VIAL IV PUSH ONE (13:15)
[2016-12-06] MEDS: RESP: ALBUTEROL 2.5 MG/IPRATROPIUM 0.5 MG NEB (SCH) INH ×3 (13:21→19:40)
--- NOTE | 2016-12-06 13:24 | RADRPT ---
EXAM DATE/TIME: 12/06/2016 13:16 [facility] COMPARISON: CHEST SINGLE AP, April 27, 2016, 15:52. INDICATIONS : Short of breath, chest pressure. MEDICAL HISTORY : Cardiovascular disease. Hypertension Renal insufficiency. SURGICAL HISTORY : Appendectomy. Cholecystectomy. Hysterectomy. ENCOUNTER: Initial ACUITY: 3 days PAIN SCORE: 1/10 LOCATION: Bilateral chest FINDINGS: Moderate emphysematous changes are noted. There is no pneumothorax. There is stable 2 cm nodular op acity left upper lobe. upper lobe. Extensive degenerative changes are seen about both shoulders with healing fracture on the left. CONCLUSION: Negative for pneumothorax. Deshaun Tirado MD FACR on December 06, 2016 at 13:21 Board Certified Radiologist. This report was verified electronically.
[2016-12-06 13:42] LABS: AUTOMATED NEUTROPHIL # 7.8 TH/MM3 (1.8-7.7); BASOPHIL % 0.2 % (0.0-2.0); EOSINOPHIL # 0.1 TH/MM3 (0-0.4); EOSINOPHIL % 1.3 % (0.0-4.0); HEMATOCRIT 37.4 % (35.0-46.0); LYMPH % 10.3 % (9.0-44.0); MEAN CELL VOLUME 89.6 FL (80.0-100.0); MEAN CORPUSCULAR HEMOGLOBIN 29.9 PG (27.0-34.0); MEAN CORPUSCULAR HGB CONC 33.3 % (32.0-36.0); MONO % 7.4 % (0.0-8.0); NEUT % 80.8 % (16.0-70.0); PLATELET COUNT 223 TH/MM3 (150-450); RED BLOOD COUNT 4.17 MIL/MM3 (4.00-5.30); RED CELL DISTRIBUTION WIDTH 16.4 % (11.6-17.2); WHITE BLOOD COUNT 9.6 TH/MM3 (4.0-11.0)
[2016-12-06 13:47] LABS: HEMO FLAGS DIFF FINAL
[2016-12-06 13:48] LABS: CHLORIDE 102 MEQ/L (98-107); POTASSIUM 4.4 MEQ/L (3.5-5.1); SODIUM (NA) 137 MEQ/L (136-145)
[2016-12-06 13:51] LABS: INTERNATIONAL NORMALIZED RATIO 2.6 RATIO
[2016-12-06 13:52] LABS: ANION GAP 8 MEQ/L (5-15); BICARBONATE 27.2 MEQ/L (21.0-32.0); BLOOD UREA NITROGEN 17 MG/DL (7-18)
[2016-12-06 13:55] LABS: ALT (GPT) 13 U/L (10-53); AST (GOT) 10 U/L (15-37); GLOMERULAR FILTRATION RATE 42 ML/MIN (>89)
[2016-12-06 13:56] LABS: TOTAL BILIRUBIN ADULT 0.5 MG/DL (0.2-1.0)
[2016-12-06 13:58] LABS: ALKALINE PHOSPHATASE 100 U/L (45-117)
[2016-12-06] MEDS ORDERED: SODIUM CHLOR 0.9% 250 ML INJ 250 ML IV ONE (14:15)
[2016-12-06] MEDS ORDERED: cefTRIAXone INJ 1,000 MG in SODIUM CHLORIDE 0.9% INJ 100 ML IV ONE (14:15)
[2016-12-06] MEDS ORDERED: RESP: ALBUTEROL 2.5 MG/3 ML NEB (PRN) INH (14:30)
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
[2016-12-06] MEDS ORDERED: FLUTICASONE PROPIONATE 50 MCG/ACT 16 GM NASAL SPRAY EACH NARE PRN ×2 (17:30→19:00)
[2016-12-06] MEDS: BETHANECHOL CHL 25 MG TAB PO SCH ×2 (18:31→20:29)
[2016-12-06] MEDS: WARFARIN SOD 5 MG TAB PO SCH (20:29)
[2016-12-06] MEDS: PRAVASTATIN SOD 40 MG TAB PO SCH (20:30)
[2016-12-06] MEDS: methylPREDNISolone SOD SUCC 125 MG/2 ML VIAL IV PUSH SCH (20:31)
[2016-12-06] MEDS ORDERED: PANTOPRAZOLE SOD 40 MG DELAYED RELEASE TAB PO ONE (21:15)
[2016-12-07] VITALS (9 sets, daily range): BP systolic 107–152; BP diastolic 54–82; PULSE 75–85; RESP 16–18; TEMP 96.1–98.2; O2SAT 92–97
[2016-12-07] MEDS: RESP: ALBUTEROL 2.5 MG/IPRATROPIUM 0.5 MG NEB (SCH) INH ×7 (00:01→23:54)
[2016-12-07] MEDS: BUDESONIDE-FORMOTEROL 160/4.5 MCG INHALER INH SCH ×4 (00:48→21:18)
[2016-12-07] MEDS: LEVOTHYROXINE SODIUM 112 MCG TAB PO SCH ×2 (06:00→06:46)
[2016-12-07 06:01] LABS: AUTOMATED NEUTROPHIL # 5.6 TH/MM3 (1.8-7.7); BASOPHIL % 0.2 % (0.0-2.0); HEMATOCRIT 34.8 % (35.0-46.0); HEMO FLAGS DIFF FINAL; LYMPH % 5.4 % (9.0-44.0); LYMPHOCYTE # 0.3 TH/MM3 (1.0-4.8); MEAN CORPUSCULAR HEMOGLOBIN 28.2 PG (27.0-34.0); MEAN CORPUSCULAR HGB CONC 31.3 % (32.0-36.0); NEUT % 93.4 % (16.0-70.0); PLATELET COUNT 227 TH/MM3 (150-450); RED BLOOD COUNT 3.87 MIL/MM3 (4.00-5.30); RED CELL DISTRIBUTION WIDTH 16.6 % (11.6-17.2)
[2016-12-07 06:14] LABS: POTASSIUM 4.5 MEQ/L (3.5-5.1)
[2016-12-07 06:19] LABS: BICARBONATE 28.6 MEQ/L (21.0-32.0)
[2016-12-07 06:20] LABS: MAGNESIUM 2.4 MG/DL (1.5-2.5)
[2016-12-07 06:37] LABS: INTERNATIONAL NORMALIZED RATIO 2.4 RATIO; PROTHROMBIN TIME - PATIENT 27.9 SEC (9.8-11.6)
[2016-12-07] MEDS: ISOSORBIDE MONONITRATE 60 MG TAB PO SCH (06:45)
[2016-12-07] MEDS: LEVOTHYROXINE SODIUM 25 MCG TAB PO SCH (06:46)
[2016-12-07] MEDS: methylPREDNISolone SOD SUCC 125 MG/2 ML VIAL IV PUSH SCH ×3 (06:47→21:17)
[2016-12-07] MEDS: POTASSIUM CHLORIDE 8 MEQ CONTROLLED RELEASE TAB PO SCH (09:16)
[2016-12-07] MEDS: DILTIAZEM-CD 120 MG CAP ER PO SCH (09:16)
[2016-12-07] MEDS: CALCIUM/VITAMIN D 250 MG/125 U TAB PO SCH (09:17)
[2016-12-07] MEDS: TORSEMIDE 20 MG TAB PO SCH (09:17)
[2016-12-07] MEDS: BETHANECHOL CHL 25 MG TAB PO SCH ×4 (09:27→21:00)
[2016-12-07] MEDS: LOSARTAN 25 MG TAB PO SCH (09:30)
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
[2016-12-07] MEDS ORDERED: PANTOPRAZOLE SOD 40 MG DELAYED RELEASE TAB PO SCH (16:00)
[2016-12-07] MEDS: RESP: ACETYLCYSTEINE 10% 30 ML NEB NEB SCH ×2 (20:41→23:54)
--- NOTE | 2016-12-07 21:13 | EKG ---
Date Performed: 12/06/2016 Time Performed: 13:31:19 PTAGE: 86 years EKG: ATRIAL FIBRILLATION NONSPECIFIC ST-T CHANGES ABNORMAL ECG PREVIOUS TRACING : 04/26/2016 18.43 DOCTOR: Ismael Linder Interpretating Date/Time 12/07/2016 21:11:51
[2016-12-07] MEDS: WARFARIN SOD 5 MG TAB PO SCH (21:17)
[2016-12-07] MEDS: PRAVASTATIN SOD 40 MG TAB PO SCH (21:17)
[2016-12-08] VITALS: BP 133/74; PULSE 88; RESP 20; TEMP 98.1; O2SAT 95
[2016-12-08] MEDS: RESP: ALBUTEROL 2.5 MG/IPRATROPIUM 0.5 MG NEB (SCH) INH ×3 (03:54→12:53)
[2016-12-08] MEDS: RESP: ACETYLCYSTEINE 10% 30 ML NEB NEB SCH ×3 (03:55→12:00)
[2016-12-08 04:00] VITALS: BP 126/76; PULSE 82; RESP 20; TEMP 97.4; O2SAT 96
[2016-12-08] MEDS: ISOSORBIDE MONONITRATE 60 MG TAB PO SCH (06:00)
[2016-12-08] MEDS: LEVOTHYROXINE SODIUM 25 MCG TAB PO SCH (06:00)
[2016-12-08] MEDS: LEVOTHYROXINE SODIUM 112 MCG TAB PO SCH (06:00)
[2016-12-08] MEDS: methylPREDNISolone SOD SUCC 125 MG/2 ML VIAL IV PUSH SCH (06:00)
[2016-12-08 06:36] LABS: INTERNATIONAL NORMALIZED RATIO 2.5 RATIO; PROTHROMBIN TIME - PATIENT 28.3 SEC (9.8-11.6)
[2016-12-08 08:00] VITALS: BP 140/71; PULSE 83; RESP 17; TEMP 98; O2SAT 95
[2016-12-08 08:15] VITALS: O2SAT 95
[2016-12-08] MEDS: BUDESONIDE-FORMOTEROL 160/4.5 MCG INHALER INH SCH (09:01)
[2016-12-08] MEDS: CALCIUM/VITAMIN D 250 MG/125 U TAB PO SCH (09:01)
[2016-12-08] MEDS: TORSEMIDE 20 MG TAB PO SCH (09:02)
[2016-12-08] MEDS: POTASSIUM CHLORIDE 8 MEQ CONTROLLED RELEASE TAB PO SCH (09:02)
[2016-12-08] MEDS: BETHANECHOL CHL 25 MG TAB PO SCH (09:02)
[2016-12-08] MEDS: LOSARTAN 25 MG TAB PO SCH (09:17)
[2016-12-08] MEDS: DILTIAZEM-CD 120 MG CAP ER PO SCH (09:17)
[2016-12-08] MEDS ORDERED: PRED10PA2 PO (10:56)
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
--- NOTE | 2016-12-08 10:56 | HHI.DCPOC ---
Discharge Care Plan Your Health Problems Are: Shortness of Breath Goals to Promote Your Health * To prevent worsening of your condition and complications * To maintain your health at the optimal level Directions to Meet Your Goals Take your medications as prescribed Follow your dietary instruction Follow activity as directed Keep your appointments as scheduled Take your immunizations and boosters as scheduled If your symptoms worsen call your PCP, if no PCP go to Urgent Care Center or Emergency Room Smoking is Dangerous to Your Health. Avoid second hand smoke Call the 24-hour hour crisis hotline for domestic abuse at Otilio Fonseca MD Dec 08, 2016 10:56
== END 2016-12-08 13:17 | disposition home or self-care (01) | DRG 190 ==
LOC: PHED 12:53 → PHEDA 14:25 → PH3B 16:16
PROVIDERS: ADMIT Hospitalist; ATTEND Hospitalist
DX: J44.1 Chronic obstructive pulmonary disease with (acute) exacerbation (principal); J96.21 Acute and chronic respiratory failure with hypoxia; Z99.81 Dependence on supplemental oxygen; I48.2 Chronic atrial fibrillation; E03.9 Hypothyroidism, unspecified; M19.90 Unspecified osteoarthritis, unspecified site; K21.9 Gastro-esophageal reflux disease without esophagitis; I25.10 Atherosclerotic heart disease of native coronary artery without angina pectoris; N18.3 Chronic kidney disease, stage 3 (moderate); I12.9 Hypertensive chronic kidney disease with stage 1 through stage 4 chronic kidney disease, or unspecified chronic kidney disease; E78.5 Hyperlipidemia, unspecified; G47.33 Obstructive sleep apnea (adult) (pediatric); Z85.828 Personal history of other malignant neoplasm of skin; Z87.891 Personal history of nicotine dependence
CPT/HCPCS: 71010; 80048; 80053; 83735; 83880; 84145; 84484; 85025; 85610; 87040; 87804; 93005; 94150; 94640; 94664; 94667; 96374; J0696; J2930; J7050; J7608

== ENCOUNTER 2017-01-04 11:28 | Inpatient (IN) | payer MEDICARE, OTHER ==
[~2017-01-04] VITALS: Ht 157.5 cm; Wt 72.3 kg
[2017-01-04] VITALS (9 sets, daily range): BP systolic 97–124; BP diastolic 50–74; PULSE 79–96; RESP 18–22; TEMP 96.8–98.4; O2SAT 86–100
[~2017-01-04 11:28] MED LIST changes: +BUDE.25I NEB; -BUDE0.5S NEB; -IPRASOL INH; -NORC5TAB PO; -PRED10PA PO; +PRED10PA2 PO; -SENN1TAB PO
[2017-01-04] MEDS ORDERED: NEXI40CA PO (11:39)
[2017-01-04] MEDS ORDERED: WARF-60 PO (11:39)
[2017-01-04] MEDS: RESP: ALBUTEROL 2.5 MG/IPRATROPIUM 0.5 MG NEB (SCH) INH ×3 (11:42→19:12)
[2017-01-04] MEDS ORDERED: methylPREDNISolone SOD SUCC 125 MG/2 ML VIAL IV PUSH ONE (11:45)
[2017-01-04] MEDS ORDERED: SODIUM CHLORIDE 0.9% FLUSH 10 ML FLUSH IVF PRN (11:45)
--- NOTE | 2017-01-04 11:46 | PD ---
HPI Chief Complaint: Respiratory Symptoms Time Seen by Provider: 11:34 Travel History International Travel<30 days: No Contact w/Intl Traveler<30days: No Traveled to known affect area: No History of Present Illness HPI 86 y/o female presents with shortness of breath that has been progressive over the past month. She states that it has gotten worse over the past couple of days. She states she wears 2 L of oxygen all the time and follows with Dr. melara as her electric distribution checker. She denies any pain or fever or any other complaints at this time. She feels worse when she moves around. She denies other modifying factors. Patient provides her medication list but cannot give significant further details. PFSH Past Medical History Hx Anticoagulant Therapy: Yes (coumadin) Anemia: Yes Arthritis: No Asthma: No Atrial Fibrillation: Yes Autoimmune Disease: No Blood Disorders: No Anxiety: No Depression: No Heart Rhythm Problems: No Cancer: Yes (SKIN) Cardiovascular Problems: Yes (htn on meds, a-fib) High Cholesterol: Yes Chemotherapy: No Chest Pain: No Congestive Heart Failure: Yes COPD: Yes Cerebrovascular Accident: No Diabetes: No Diminished Hearing: No Endocrine: Yes Gastrointestinal Disorders: Yes (ACID REFLUX, HX OF ESOPHAGEAL STRICTURE/ DILATION) GERD: Yes Glaucoma: No Genitourinary: No Headaches: Yes Hepatitis: No Hiatal Hernia: No Hypertension: Yes Immune Disorder: No Kidney Stones: No Medical other: Yes (ANEMIA) Musculoskeletal: Yes (OSTEOARTHRITIS, BACK PROBLEMS) Neurologic: No Psychiatric: No Reproductive: No Respiratory: Yes (chf, copd oxygen use at home) Migraines: No Myocardial Infarction: No Radiation Therapy: No Renal Failure: No Seizures: No Sleep Apnea: No Thyroid Disease: Yes Ulcer: No Past Surgical History Abdominal Surgery: Yes (APPENDECTOMY, CHOLECYSTECTOMY) AICD: No Appendectomy: Yes Arteriovenous Shunt: No Cholecystectomy: Yes Ear Surgery: No Eye Surgery: Yes (MAIKEL CATARACT SURGERY) Genitourinary Surgery: No Gynecologic Surgery: Yes (HYSTERECTOMY) Hysterectomy: Yes Insulin Pump: No Joint Replacement: No Oral Surgery: No Pacemaker: No Thoracic Surgery: No Other Surgery: Yes Social History Alcohol Use: Yes (RARE) Tobacco Use: No (quit 26 years ago) Substance Use: No Allergies-Medications (Allergen,Severity, Reaction): Coded Allergies: aspirin (Unverified Allergy, Severe, Rash, 12/06/16) Reported Meds & Prescriptions Reported Meds & Active Scripts Active Reported Warfarin 6 Mg Tab 6 Mg PO DAILY Nexium (Esomeprazole DR) 40 Mg Capdr 40 Mg PO DAILY Pulmicort Respules (Budesonide) 0.25 Mg/2 Ml Neb 0.25 Mg NEB Q12HR NEB Isosorbide Mononitrate ER (Isosorbide Mononitrate) 60 Mg Tab 60 Mg PO DAILY Calcium 1000 + D (Calcium Carbonate-Cholecalciferol) 1,000-800 Mg-Unit Tab 1 Tab PO DAILY Klor-Con M15 (Potassium Chloride Microencaps) 15 Meq Tab 15 Meq PO DAILY Torsemide 20 Mg Tab 20 Mg PO DAILY Bethanechol 25 Mg Tab 12.5 Mg PO QID Synthroid (Levothyroxine Sodium) 137 Mcg Tab 137 Mcg PO DAILY Flonase Nasal [place] (Fluticasone Nasal [place]) 50 Mcg/Act [place] 1 [place] EACH NARE BID PRN Diltiazem CD 24 HR 120 Mg Caper 120 Mg PO DAILY Cozaar (Losartan Potassium) 25 Mg Tab 25 Mg PO DAILY Combivent Respimat Inh (Ipratropium-Albuterol Inh) 20-100 [place]/Act Aero 1 Puff INH QID PRN Simvastatin 20 Mg Tab 20 Mg PO HS Review of Systems Except as stated in HPI: all other systems reviewed are Neg Physical Exam Narrative GENERAL: Well-nourished, well-developed patient. SKIN: Warm and dry. HEAD: Normocephalic and atraumatic. EYES: No injection or drainage. ENT: No nasal drainage noted. NECK: Supple, trachea midline. CARDIOVASCULAR: Regular rate and rhythm RESPIRATORY: Expiratory wheezing bilaterally. No accessory muscle use. GASTROINTESTINAL: Abdomen soft, non-tender, nondistended. EXTREMITIES: Edema to bilateral lower extremities, left greater than right, patient states a little worse than normal and always bigger on the left, no calf pain NEUROLOGICAL: Awake. Moves all extremities and sensory grossly within normal limits. Normal speech. Data Data Last Documented VS Vital Signs Date Time Temp Pulse Resp B/P (MAP) Pulse Ox O2 Delivery O2 Flow Rate FiO2 01/04/17 12:33 98.4 89 22 97/50 (66) 95 Nasal Cannula 2.00 84% in triage with walking in on her oxygen Orders Orders Complete Blood Count With Diff (01/04/17 11:34) Comprehensive Metabolic Panel (01/04/17 11:34) B-Type Natriuretic Peptide (01/04/17 11:34) Act Partial Throm Time (Ptt) (01/04/17 11:34) Prothrombin Time / Inr (Pt) (01/04/17 11:34) Magnesium (Mg) (01/04/17 11:34) Ckmb (Isoenzyme) Profile (01/04/17 11:34) Troponin I (01/04/17 11:34) Influenzae A/B Antigen (01/04/17 11:34) Iv Access Insert/Monitor (01/04/17 11:34) Electrocardiogram (01/04/17 11:34) Ecg Monitoring (01/04/17 11:34) Oximetry (01/04/17 11:34) Oxygen Administration (01/04/17 11:34) Chest, Single Ap (01/04/17 11:34) Sodium Chloride 0.9% Flush (Ns Flush) (01/04/17 11:45) Methylprednisolone So Succ Inj (Solumedr (01/04/17 11:45) Albuterol-Ipratropium Neb (Duoneb Neb) (01/04/17 11:45) Lactic Acid (01/04/17 11:34) Sodium Chlorid 0.9% 500 Ml Inj (Ns 500 M (01/04/17 12:45) Labs Laboratory Tests Test 01/04/17 11:50 White Blood Count 3.6 TH/MM3 Red Blood Count 3.92 MIL/MM3 Hemoglobin 11.4 GM/DL Hematocrit 35.3 % Mean Corpuscular Volume 89.9 FL Mean Corpuscular Hemoglobin 29.0 PG Mean Corpuscular Hemoglobin Concent 32.3 % Red Cell Distribution Width 15.8 % Platelet Count 308 TH/MM3 Mean Platelet Volume 7.4 FL Neutrophils (%) (Auto) 75.8 % Lymphocytes (%) (Auto) 11.8 % Monocytes (%) (Auto) 7.7 % Eosinophils (%) (Auto) 3.8 % Basophils (%) (Auto) 0.9 % Neutrophils # (Auto) 2.8 TH/MM3 Lymphocytes # (Auto) 0.4 TH/MM3 Monocytes # (Auto) 0.3 TH/MM3 Eosinophils # (Auto) 0.1 TH/MM3 Basophils # (Auto) 0.0 TH/MM3 CBC Comment DIFF FINAL Differential Comment Prothrombin Time 23.2 SEC Prothromb Time International Ratio 2.0 RATIO Activated Partial Thromboplast Time 42.7 SEC Blood Urea Nitrogen 18 MG/DL Creatinine 1.00 MG/DL Random Glucose 107 MG/DL Total Protein 6.5 GM/DL Albumin 3.1 GM/DL Calcium Level 9.6 MG/DL Magnesium Level 2.2 MG/DL Alkaline Phosphatase 85 U/L Aspartate Amino Transf (AST/SGOT) 12 U/L Alanine Aminotransferase (ALT/SGPT) 14 U/L Total Bilirubin 0.5 MG/DL Sodium Level 138 MEQ/L Potassium Level 4.2 MEQ/L Chloride Level 100 MEQ/L Carbon Dioxide Level 31.3 MEQ/L Anion Gap 7 MEQ/L Estimat Glomerular Filtration Rate 52 ML/MIN Lactic Acid Level 1.1 mmol/L Total Creatine Kinase 35 U/L Troponin I LESS THAN 0.02 NG/ML B-Type Natriuretic Peptide 63 PG/ML MDM Medical Decision Making Medical Screen Exam Complete: Yes Emergency Medical Condition: Yes Medical Record Reviewed: Yes (past history confirmed) Interpretation(s) EKG is sinus rhythm at 90 without STEMI criteria CBC & BMP Diagram 01/04/17 11:50 Total Protein 6.5, Albumin 3.1 L, Calcium Level 9.6, Magnesium Level 2.2, Alkaline Phosphatase 85, Aspartate Amino Transf (AST/SGOT) 12 L, Alanine Aminotransferase (ALT/SGPT) 14, Total Bilirubin 0.5 Last 24 hours Impressions Chest X-Ray 01/04/17 1134 Signed Impressions: Service Date/Time: Wednesday, January 04, 2017 11:47 - CONCLUSION: 1. Stable 1.9 cm left upper lobe pulmonary mass. 2. Hyperinflation consistent with COPD. 3. Clear lungs. Sherif Mondragon Jr., MD Differential Diagnosis COPD, renal failure, electrolyte abnormality, pneumonia, pneumothorax.... Narrative Course Will check blood work, chest x-ray, EKG and dose with DuoNeb's and Solu-Medrol and reevaluate ed workup with copd exacerbation, with ambulation patient gets very short of breath and can only make a couple steps. We'll admit to the hospital for further care. Physician Communication Physician Communication dr austin agrees to admit Diagnosis Primary Impression: COPD exacerbation Admitting Information Admitting Physician Requests: Observation Charlotte Figueroa MD Jan 04, 2017 11:46
--- NOTE | 2017-01-04 11:56 | RADRPT ---
EXAM DATE/TIME: 01/04/2017 11:47 [facility] COMPARISON: CHEST SINGLE AP, December 06, 2016, 13:16. INDICATIONS : Short of breath. MEDICAL HISTORY : Cardiovascular disease. Hypertension Renal insufficiency. SURGICAL HISTORY : Appendectomy. Cholecystectomy. Hysterectomy. ENCOUNTER: Initial ACUITY: 3 days PAIN SCORE: 0/10 LOCATION: chest FINDINGS: A 1.9 cm nodules again seen within the left upper lobe. Lungs are hyperaerated but otherwise clear. N o effusions or pneumothorax. Heart is normal in size. Aorta is calcified. Old fracture involving the proximal left humerus. A degenerative and scoliotic spine. CONCLUSION: 1. Stable 1.9 cm left upper lobe pulmonary mass. 2. Hyperinflation consistent with COPD. 3. Clear lungs. Sherif Mondragon Jr., MD on January 04, 2017 at 11:52 Board Certified Radiologist. This report was verified electronically.
[2017-01-04 12:06] LABS: AUTOMATED NEUTROPHIL # 2.8 TH/MM3 (1.8-7.7); BASOPHIL % 0.9 % (0.0-2.0); EOSINOPHIL # 0.1 TH/MM3 (0-0.4); EOSINOPHIL % 3.8 % (0.0-4.0); HEMATOCRIT 35.3 % (35.0-46.0); HEMO FLAGS DIFF FINAL; LYMPH % 11.8 % (9.0-44.0); LYMPHOCYTE # 0.4 TH/MM3 (1.0-4.8); MEAN CELL VOLUME 89.9 FL (80.0-100.0); MEAN CORPUSCULAR HGB CONC 32.3 % (32.0-36.0); MONO % 7.7 % (0.0-8.0); NEUT % 75.8 % (16.0-70.0); PLATELET COUNT 308 TH/MM3 (150-450); RED BLOOD COUNT 3.92 MIL/MM3 (4.00-5.30); RED CELL DISTRIBUTION WIDTH 15.8 % (11.6-17.2); WHITE BLOOD COUNT 3.6 TH/MM3 (4.0-11.0)
[2017-01-04 12:12] LABS: CHLORIDE 100 MEQ/L (98-107); POTASSIUM 4.2 MEQ/L (3.5-5.1); SODIUM (NA) 138 MEQ/L (136-145)
[2017-01-04 12:17] LABS: ANION GAP 7 MEQ/L (5-15); APTT (PATIENT) 42.7 SEC (24.3-30.1); BICARBONATE 31.3 MEQ/L (21.0-32.0); BLOOD UREA NITROGEN 18 MG/DL (7-18); MAGNESIUM 2.2 MG/DL (1.5-2.5); PROTHROMBIN TIME - PATIENT 23.2 SEC (9.8-11.6)
[2017-01-04 12:20] LABS: ALT (GPT) 14 U/L (10-53); AST (GOT) 12 U/L (15-37); GLOMERULAR FILTRATION RATE 52 ML/MIN (>89)
[2017-01-04 12:22] LABS: TOTAL BILIRUBIN ADULT 0.5 MG/DL (0.2-1.0)
[2017-01-04 12:23] LABS: ALKALINE PHOSPHATASE 85 U/L (45-117)
[2017-01-04 12:33] LABS: CREATINE KINASE 35 U/L (26-192)
[2017-01-04] MEDS ORDERED: SODIUM CHLORID 0.9% 500 ML INJ 500 ML IV ONE (12:45)
[2017-01-04] MEDS ORDERED: FLUTICASONE PROPIONATE 50 MCG/ACT 16 GM NASAL SPRAY EACH NARE PRN (14:00)
[2017-01-04] MEDS ORDERED: LEVOTHYROXINE SODIUM 112 MCG TAB PO SCH (14:00)
--- NOTE | 2017-01-04 14:33 | HHI.HP ---
[facility] Jose Rafael Granado MD Admission Diagnosis copd exacerbation Diagnoses: Travel History International Travel<30 Days: No Contact w/Intl Traveler <30 Da: No Traveled to Known Affected Are: No Past Family Social History Allergies: Coded Allergies: aspirin (Unverified Allergy, Severe, Rash, 12/06/16) Physical Exam Vital Signs Vital Signs Date Time Temp Pulse Resp B/P (MAP) Pulse Ox O2 Delivery O2 Flow Rate FiO2 01/04/17 13:38 84 20 106/51 (69) 96 Nasal Cannula 2.00 01/04/17 12:33 98.4 89 22 97/50 (66) 95 Nasal Cannula 2.00 01/04/17 11:42 96 Nasal Cannula 2.00 01/04/17 11:38 95 Nasal Cannula 2.00 01/04/17 11:38 Nasal Cannula 2.00 01/04/17 11:36 98.4 95 22 114/73 (87) 86 Physical Exam GENERAL: This is a well-nourished, well-developed patient, in no apparent distress. SKIN: No rashes, ecchymoses or lesions. Cool and dry. HEAD: Atraumatic. Normocephalic. No temporal or scalp tenderness. EYES: Pupils equal round and reactive. Extraocular motions intact. No scleral icterus. No injection or drainage. ENT: Nose without bleeding, purulent drainage or septal hematoma. Throat without erythema, tonsillar hypertrophy or exudate. Uvula midline. Airway patent. NECK: Trachea midline. No JVD or lymphadenopathy. Supple, nontender, no meningeal signs. CARDIOVASCULAR: Regular rate and rhythm without murmurs, gallops, or rubs. RESPIRATORY: Clear to auscultation. Breath sounds equal bilaterally. No wheezes , rales, or rhonchi. GASTROINTESTINAL: Abdomen soft, non-tender, nondistended. No hepato-splenomegaly , or palpable masses. No guarding. MUSCULOSKELETAL: Extremities without clubbing, cyanosis, or edema. No joint tenderness, effusion, or edema noted. No calf tenderness. Negative Homans sign bilaterally. NEUROLOGICAL: Awake and alert. Cranial nerves II through XII intact. Motor and sensory grossly within normal limits. Five out of 5 muscle strength in all muscle groups. Normal speech. Laboratory Laboratory Tests Test 01/04/17 11:50 White Blood Count 3.6 Red Blood Count 3.92 Hemoglobin 11.4 Hematocrit 35.3 Mean Corpuscular Volume 89.9 Mean Corpuscular Hemoglobin 29.0 Mean Corpuscular Hemoglobin Concent 32.3 Red Cell Distribution Width 15.8 Platelet Count 308 Mean Platelet Volume 7.4 Neutrophils (%) (Auto) 75.8 Lymphocytes (%) (Auto) 11.8 Monocytes (%) (Auto) 7.7 Eosinophils (%) (Auto) 3.8 Basophils (%) (Auto) 0.9 Neutrophils # (Auto) 2.8 Lymphocytes # (Auto) 0.4 Monocytes # (Auto) 0.3 Eosinophils # (Auto) 0.1 Basophils # (Auto) 0.0 CBC Comment DIFF FINAL Differential Comment Prothrombin Time 23.2 Prothromb Time International Ratio 2.0 Activated Partial Thromboplast Time 42.7 Blood Urea Nitrogen 18 Creatinine 1.00 Random Glucose 107 Total Protein 6.5 Albumin 3.1 Calcium Level 9.6 Magnesium Level 2.2 Alkaline Phosphatase 85 Aspartate Amino Transf (AST/SGOT) 12 Alanine Aminotransferase (ALT/SGPT) 14 Total Bilirubin 0.5 Sodium Level 138 Potassium Level 4.2 Chloride Level 100 Carbon Dioxide Level 31.3 Anion Gap 7 Estimat Glomerular Filtration Rate 52 Lactic Acid Level 1.1 Total Creatine Kinase 35 Troponin I LESS THAN 0.02 B-Type Natriuretic Peptide 63 Date/Time Source Procedure Growth Status 01/04/17 11:50 Nasal Aspirate Influenza Types A,B Antigen (MOE) - Final NEGATIVE FOR FLU A AND B ANTIGEN.... Complete Result Diagram: 01/04/17 1150 01/04/17 1150 Caprini VTE Risk Assessment Caprini Risk Assessment Model Point Value = 1 Point Value = 2 Point Value = 3 Point Value = 5 Age 41-60 Minor surgery BMI > 25 kg/m2 Swollen legs Varicose veins or History of unexplained or recurrent spontaneous Oral contraceptives or hormone replacement Sepsis (< 1 month) Serious lung disease, including pneumonia (< 1 month) Abnormal pulmonary function Acute myocardial infarction Congestive heart failure (< 1 month) History of inflammatory bowel disease Medical patient at bed rest Age 61-74 Arthroscopic surgery Major open surgery (> 45 min) Laparoscopic surgery (> 45 min) Malignancy Confined to bed (> 72 hours) Immobilizing plaster cast Central venous access Age >= 75 History of VTE Family history of VTE Factor V Leiden Prothrombin 22401N Lupus anticoagulant Anticardiolipin antibodies Elevated serum homocysteine Heparin-induced thrombocytopenia Other congenital or acquired thrombophilia Stroke (< 1 month) Elective arthroplasty Hip, pelvis, or leg fracture Acute spinal cord injury (< 1 month) Prophylaxis Regimen Total Risk Factor Score Risk Level Prophylaxis Regimen 0-1 Low Early ambulation 2 Moderate Order ONE of the following: *Sequential Compression Device (SCD) *Heparin 5000 units SQ BID 3-4 Higher Order ONE of the following medications: *Heparin 5000 units SQ TID *Enoxaparin/Lovenox 40 mg SQ daily (WT < 150 kg, CrCl > 30 mL/min) *Enoxaparin/Lovenox 30 mg SQ daily (WT < 150 kg, CrCl > 10-29 mL/min) *Enoxaparin/Lovenox 30 mg SQ BID (WT < 150 kg, CrCl > 30 mL/min) AND/OR *Sequential Compression Device (SCD) 5 or more Highest Order ONE of the following medications: *Heparin 5000 units SQ TID (Preferred with Epidurals) *Enoxaparin/Lovenox 40 mg SQ daily (WT < 150 kg, CrCl > 30 mL/min) *Enoxaparin/Lovenox 30 mg SQ daily (WT < 150 kg, CrCl > 10-29 mL/min) *Enoxaparin/Lovenox 30 mg SQ BID (WT < 150 kg, CrCl > 30 mL/min) AND *Sequential Compression Device (SCD) Assessment and Plan Problem List: (1) COPD exacerbation ICD Code: J44.1 - Chronic obstructive pulmonary disease with (acute) exacerbation Status: Acute (2) Chronic atrial fibrillation ICD Code: I48.2 - Chronic atrial fibrillation Status: Chronic Physician Certification Order for Inpatient Services The services are ordered in accordance with Medicare regulations or non- Medicare payer requirements, as applicable. In the case of services not specified as inpatient-only, they are appropriately provided as inpatient services in accordance with the 2-midnight benchmark. days is the estimated time the patient will need to remain in the hospital, assuming treatment plan goals are met and no additional complications. Unique Davidson MD Jan 04, 2017 14:33
--- NOTE | 2017-01-04 14:44 | HHI.HP ---
cc: Jose Rafael Granado MD [facility] Jose Rafael Granado MD Admission Diagnosis copd exacerbation Diagnoses: (1) COPD exacerbation (2) Chronic atrial fibrillation Chief Complaint: Respiratory breathing Travel History International Travel<30 Days: No Contact w/Intl Traveler <30 Da: No Traveled to Known Affected Are: No History of Present Illness This patient is a pleasant 86-year-old female with a history of COPD on home O2. 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 She was recently in the hospital in November for an exacerbation of COPD. She presents emergently with increased work of breathing over the last week not improved with her bronchodilators. It is requiring increased oxygen at home. She has a cough which is productive. She is increasingly winded with minimal exertion. Here she has been mildly hypoxemic and had difficulty ambulating short distances in the emergency room. She is recommended for admission to the hospital. She also complaining of some lower extremity edema which has been worse over the last several days. On exam she is quite short of breath with cough and with dyspnea on minimal exertion. She reports constipation frequently and that has also gotten worse over the last several days. Patient's been admitted to the hospital for further evaluation Review of Systems Constitutional: DENIES: Diaphoretic episodes, Fatigue, Fever, Weight gain, Weight loss, Chills, Dizziness, Change in appetite, Night Sweats Endocrine: DENIES: Abnorml menstrual pattern, Heat/cold intolerance, Polydipsia , Polyuria, Polyphagia Eyes: DENIES: Blurred vision, Diplopia, Eye inflammation, Eye pain, Vision loss , Photosensitivity, Double Vision Respiratory: COMPLAINS OF: Cough, Wheezing, Shortness of breath, DENIES: Apneas , Snoring, Hemoptysis, Sputum production Cardiovascular: COMPLAINS OF: Lower Extremity Edema, DENIES: Chest pain, Palpitations, Syncope, Dyspnea on Exertion, PND, Orthopnea, Claudication Gastrointestinal: DENIES: Abdominal pain, Black stools, Bloody stools, Constipation, Diarrhea, Nausea, Vomiting, Difficulty Swallowing, Anorexia Genitourinary: DENIES: Abnormal vaginal bleeding, Dysmenorrhea, Dyspareunia, Sexual dysfunction, Urinary frequency, Urinary incontinence, Urgency, Hematuria , Dysuria, Nocturia, Vaginal discharge Musculoskeletal: DENIES: Joint pain, Muscle aches, Stiffness, Joint Swelling, Back pain, Neck pain Integumentary: DENIES: Abnormal pigmentation, Pruritus, Rash, Nail changes, Breast masses, Breast skin changes, Nipple discharge Hematologic/lymphatic: DENIES: Bruising, Lymphadenopathy Immunologic/allergic: DENIES: Eczema, Urticaria Neurologic: DENIES: Abnormal gait, Headache, Localized weakness, Paresthesias, Seizures, Speech Problems, Tremor, Poor Balance Psychiatric: DENIES: Anxiety, Confusion, Mood changes, Depression, Hallucinations, Agitation, Suicidal Ideation, Homicidal Ideation, Delusions Except as stated in HPI: all other systems reviewed are Neg Past Family Social History Past Medical History Atrial fibrillation Coronary artery disease COPD Past Surgical History Appendectomy Cholecystectomy Hip replacement Hysterectomy Dental extraction knee replacement, right Reported Medications Reviewed in the EMR Allergies: Coded Allergies: aspirin (Unverified Allergy, Severe, Rash, 12/06/16) Active Ordered Medications Reviewed in the EMR Family History Mother from COPD, father from an accident and blood clots Physical Exam Vital Signs Vital Signs Date Time Temp Pulse Resp B/P (MAP) Pulse Ox O2 Delivery O2 Flow Rate FiO2 01/04/17 13:38 84 20 106/51 (69) 96 Nasal Cannula 2.00 01/04/17 12:33 98.4 89 22 97/50 (66) 95 Nasal Cannula 2.00 01/04/17 11:42 96 Nasal Cannula 2.00 01/04/17 11:38 95 Nasal Cannula 2.00 01/04/17 11:38 Nasal Cannula 2.00 01/04/17 11:36 98.4 95 22 114/73 (87) 86 Physical Exam GENERAL: This is a well-nourished, well-developed patient, complaining of shortness of breath SKIN: No rashes, ecchymoses or lesions. Cool and dry. HEAD: Atraumatic. Normocephalic. No temporal or scalp tenderness. EYES: Pupils equal round and reactive. Extraocular motions intact. No scleral icterus. No injection or drainage. ENT: Nose without bleeding, purulent drainage or septal hematoma. Throat without erythema, tonsillar hypertrophy or exudate. Uvula midline. Airway patent. NECK: Trachea midline. No JVD or lymphadenopathy. Supple, nontender, no meningeal signs. CARDIOVASCULAR: Regular rate and rhythm without murmurs, gallops, or rubs. RESPIRATORY: Clear to auscultation. Breath sounds equal bilaterally. Patient was scattered wheezes GASTROINTESTINAL: Abdomen soft, non-tender, nondistended. No hepato-splenomegaly , or palpable masses. No guarding. MUSCULOSKELETAL: Extremities without clubbing, cyanosis, and there is +2 edema. No joint tenderness, effusion, or edema noted. No calf tenderness. Negative Homans sign bilaterally. NEUROLOGICAL: Awake and alert. Cranial nerves II through XII intact. Motor and sensory grossly within normal limits. Five out of 5 muscle strength in all muscle groups. Normal speech. Laboratory Laboratory Tests Test 01/04/17 11:50 White Blood Count 3.6 Red Blood Count 3.92 Hemoglobin 11.4 Hematocrit 35.3 Mean Corpuscular Volume 89.9 Mean Corpuscular Hemoglobin 29.0 Mean Corpuscular Hemoglobin Concent 32.3 Red Cell Distribution Width 15.8 Platelet Count 308 Mean Platelet Volume 7.4 Neutrophils (%) (Auto) 75.8 Lymphocytes (%) (Auto) 11.8 Monocytes (%) (Auto) 7.7 Eosinophils (%) (Auto) 3.8 Basophils (%) (Auto) 0.9 Neutrophils # (Auto) 2.8 Lymphocytes # (Auto) 0.4 Monocytes # (Auto) 0.3 Eosinophils # (Auto) 0.1 Basophils # (Auto) 0.0 CBC Comment DIFF FINAL Differential Comment Prothrombin Time 23.2 Prothromb Time International Ratio 2.0 Activated Partial Thromboplast Time 42.7 Blood Urea Nitrogen 18 Creatinine 1.00 Random Glucose 107 Total Protein 6.5 Albumin 3.1 Calcium Level 9.6 Magnesium Level 2.2 Alkaline Phosphatase 85 Aspartate Amino Transf (AST/SGOT) 12 Alanine Aminotransferase (ALT/SGPT) 14 Total Bilirubin 0.5 Sodium Level 138 Potassium Level 4.2 Chloride Level 100 Carbon Dioxide Level 31.3 Anion Gap 7 Estimat Glomerular Filtration Rate 52 Lactic Acid Level 1.1 Total Creatine Kinase 35 Troponin I LESS THAN 0.02 B-Type Natriuretic Peptide 63 Date/Time Source Procedure Growth Status 01/04/17 11:50 Nasal Aspirate Influenza Types A,B Antigen (MOE) - Final NEGATIVE FOR FLU A AND B ANTIGEN.... Complete Result Diagram: 01/04/17 1150 01/04/17 1150 Imaging Last Impressions Chest X-Ray 01/04/17 1134 Signed Impressions: Service Date/Time: Wednesday, January 04, 2017 11:47 - CONCLUSION: 1. Stable 1.9 cm left upper lobe pulmonary mass. 2. Hyperinflation consistent with COPD. 3. Clear lungs. MD Aravind Coffman Jr. VTE Risk Assessment Capred VTE Risk Assessment: Mod/High Risk (score >= 2) VTE Pharm Contraindication: Coagulopathy,INR elevated Caprini Risk Assessment Model Point Value = 1 Point Value = 2 Point Value = 3 Point Value = 5 Age 41-60 Minor surgery BMI > 25 kg/m2 Swollen legs Varicose veins or History of unexplained or recurrent spontaneous Oral contraceptives or hormone replacement Sepsis (< 1 month) Serious lung disease, including pneumonia (< 1 month) Abnormal pulmonary function Acute myocardial infarction Congestive heart failure (< 1 month) History of inflammatory bowel disease Medical patient at bed rest Age 61-74 Arthroscopic surgery Major open surgery (> 45 min) Laparoscopic surgery (> 45 min) Malignancy Confined to bed (> 72 hours) Immobilizing plaster cast Central venous access Age >= 75 History of VTE Family history of VTE Factor V Leiden Prothrombin [id number] Lupus anticoagulant Anticardiolipin antibodies Elevated serum homocysteine Heparin-induced thrombocytopenia Other congenital or acquired thrombophilia Stroke (< 1 month) Elective arthroplasty Hip, pelvis, or leg fracture Acute spinal cord injury (< 1 month) Prophylaxis Regimen Total Risk Factor Score Risk Level Prophylaxis Regimen 0-1 Low Early ambulation 2 Moderate Order ONE of the following: *Sequential Compression Device (SCD) *Heparin 5000 units SQ BID 3-4 Higher Order ONE of the following medications: *Heparin 5000 units SQ TID *Enoxaparin/Lovenox 40 mg SQ daily (WT < 150 kg, CrCl > 30 mL/min) *Enoxaparin/Lovenox 30 mg SQ daily (WT < 150 kg, CrCl > 10-29 mL/min) *Enoxaparin/Lovenox 30 mg SQ BID (WT < 150 kg, CrCl > 30 mL/min) AND/OR *Sequential Compression Device (SCD) 5 or more Highest Order ONE of the following medications: *Heparin 5000 units SQ TID (Preferred with Epidurals) *Enoxaparin/Lovenox 40 mg SQ daily (WT < 150 kg, CrCl > 30 mL/min) *Enoxaparin/Lovenox 30 mg SQ daily (WT < 150 kg, CrCl > 10-29 mL/min) *Enoxaparin/Lovenox 30 mg SQ BID (WT < 150 kg, CrCl > 30 mL/min) AND *Sequential Compression Device (SCD) Assessment and Plan Problem List: (1) COPD exacerbation ICD Code: J44.1 - Chronic obstructive pulmonary disease with (acute) exacerbation Status: Acute Plan: Bronchodilators, IV steroids, and some antibiotics Check echo Pulmonary to follow leukopenia with Left shift, follow trend flu negative (2) Chronic atrial fibrillation ICD Code: I48.2 - Chronic atrial fibrillation Status: Chronic Plan: Continue warfarin, currently controlled on diltiazem INR 2.0, will follow as needed especially while on antibiotics (3) Hypothyroidism ICD Code: E03.9 - Hypothyroidism Status: Chronic (4) CAD (coronary artery disease) ICD Code: I25.10 - CAD (coronary artery disease) Status: Acute Unique Davidson MD Jan 04, 2017 14:44
[2017-01-04] MEDS: BETHANECHOL CHL 25 MG TAB PO SCH ×2 (18:24→21:06)
[2017-01-04] MEDS: DOXYCYCLINE HYCLATE 100 MG TAB PO SCH (21:00)
[2017-01-04] MEDS ORDERED: methylPREDNISolone SOD SUCC 40 MG/1 ML VIAL IV PUSH SCH (21:00)
[2017-01-04] MEDS: PRAVASTATIN SOD 40 MG TAB PO SCH (21:06)
[2017-01-04] MEDS: SODIUM CHLORIDE 0.9% FLUSH 10 ML FLUSH IV FLUSH SCH (21:11)
[2017-01-04] MEDS: RESP: ALBUTEROL 2.5 MG/3 ML NEB (PRN) INH (23:26)
[2017-01-04] MEDS ORDERED: MAGNESIUM HYDROXIDE SUSP 30 ML CUP PO ONE (23:30)
[2017-01-05] VITALS (7 sets, daily range): BP systolic 113–144; BP diastolic 58–78; PULSE 83–112; RESP 16–24; TEMP 96.1–97.4; O2SAT 91–98
[2017-01-05] MEDS: LEVOTHYROXINE SODIUM 112 MCG TAB PO SCH (05:27)
[2017-01-05] MEDS: LEVOTHYROXINE SODIUM 25 MCG TAB PO SCH (05:27)
[2017-01-05] MEDS: RESP: ALBUTEROL 2.5 MG/IPRATROPIUM 0.5 MG NEB (SCH) INH ×4 (07:19→19:53)
[2017-01-05] MEDS ORDERED: POTASSIUM CHLORIDE 8 MEQ CAP PO SCH (09:00)
[2017-01-05] MEDS: LOSARTAN 25 MG TAB PO SCH (09:34)
[2017-01-05] MEDS: BETHANECHOL CHL 25 MG TAB PO SCH ×4 (09:34→20:11)
[2017-01-05] MEDS: DILTIAZEM-CD 120 MG CAP ER PO SCH (09:34)
[2017-01-05] MEDS: TORSEMIDE 20 MG TAB PO SCH (09:35)
[2017-01-05] MEDS: ISOSORBIDE MONONITRATE 60 MG TAB PO SCH (09:35)
[2017-01-05] MEDS: DOXYCYCLINE HYCLATE 100 MG TAB PO SCH ×2 (09:37→20:10)
[2017-01-05] MEDS: SODIUM CHLORIDE 0.9% FLUSH 10 ML FLUSH IV FLUSH SCH ×2 (09:38→20:12)
[2017-01-05] MEDS ORDERED: INFLUENZA VIRUS VACCINE (QUADRIVALENT) 0.5 ML SYR IM ONE (10:00)
[2017-01-05] MEDS: methylPREDNISolone SOD SUCC 40 MG/1 ML VIAL IV PUSH SCH ×3 (11:25→23:25)
--- NOTE | 2017-01-05 12:28 | HHI.PR ---
Subjective Remarks Patient seen and evaluated follow-up for COPD exacerbation, pulmonary consult appreciated. Patient offering IV steroids and bronchodilators without difficulty. She reports improvement in subjective this breathing sensation Objective Vitals Vital Signs Date Time Temp Pulse Resp B/P (MAP) Pulse Ox O2 Delivery O2 Flow Rate FiO2 01/05/17 11:00 2.00 01/05/17 09:34 96 Nasal Cannula 2.00 01/05/17 08:00 97.4 92 20 144/78 (100) 96 01/05/17 07:20 98 Nasal Cannula 2.00 01/05/17 00:00 97.0 84 18 115/58 (77) 96 01/04/17 21:10 Nasal Cannula 2.00 01/04/17 20:00 96.8 79 18 124/58 (80) 96 01/04/17 19:12 98 Nasal Cannula 2.00 01/04/17 16:00 97.5 96 20 112/74 (87) 100 01/04/17 15:00 97.5 96 20 112/74 (87) 100 01/04/17 14:42 01/04/17 13:38 84 20 106/51 (69) 96 Nasal Cannula 2.00 01/04/17 12:33 98.4 89 22 97/50 (66) 95 Nasal Cannula 2.00 I/O 01/04/17 01/04/17 01/04/17 01/05/17 01/05/17 01/05/17 07:00 15:00 23:00 07:00 15:00 23:00 Intake Total 500 ml 350 ml 240 ml Balance 500 ml 350 ml 240 ml Intake Oral 350 ml 240 ml IV Total 500 ml # Voids 3 2 1 # Bowel Movements 0 2 1 Result Diagram: 01/04/17 1150 01/04/17 1150 Imaging Last Impressions Chest X-Ray 01/04/17 1134 Signed Impressions: Service Date/Time: Wednesday, January 04, 2017 11:47 - CONCLUSION: 1. Stable 1.9 cm left upper lobe pulmonary mass. 2. Hyperinflation consistent with COPD. 3. Clear lungs. Sherif Mondragon Jr., MD Objective Remarks GENERAL: This is a well-nourished, well-developed patient, minimally short of breath at rest CARDIOVASCULAR: Regular rate and rhythm without murmurs, gallops, or rubs. RESPIRATORY: Decreased air flow with scattered wheezes MUSCULOSKELETAL: Extremities without clubbing, cyanosis, or edema. NEURO: Alert & Oriented x4 to person, place, time, situation. Moves all ext x4 A/P Problem List: (1) COPD exacerbation ICD Code: J44.1 - Chronic obstructive pulmonary disease with (acute) exacerbation Status: Acute Plan: nebulizer Bronchodilators, IV steroids, and antibiotics Echo pending Pulmonary consult appreciated leukopenia with Left shift, follow trend flu negative (2) Chronic atrial fibrillation ICD Code: I48.2 - Chronic atrial fibrillation Status: Chronic Plan: Continue warfarin, currently controlled on diltiazem INR 2.0, will follow as needed especially while on antibiotics (3) Hypothyroidism ICD Code: E03.9 - Hypothyroidism Status: Chronic Plan: Continue thyroid replacement hormone (4) CAD (coronary artery disease) ICD Code: I25.10 - CAD (coronary artery disease) Status: Acute Plan: Stable, continue home medications Assessment and Plan will admit Discharge Planning Home when stable Unique Davidson MD Jan 05, 2017 12:28
--- NOTE | 2017-01-05 14:25 | EKG ---
Date Performed: 01/04/2017 Time Performed: 11:36:12 PTAGE: 86 years EKG: Sinus rhythm MODERATE ST DEPRESSION ABNORMAL ECG PREVIOUS TRACING : 12/06/2016 13.31 DOCTOR: Gilmar Villeda Interpretating Date/Time 01/05/2017 14:19:15
[2017-01-05] MEDS: WARFARIN SOD 6 MG TAB PO SCH (16:04)
--- NOTE | 2017-01-05 16:58 | ECHRPT ---
Indication: Shortness of breath CONCLUSIONS The left ventricular systolic function is normal with an estimated ejection fraction in the range of 65-70%. Normal left ventricular size. Wall thickness is normal. No regional wall motion abnormalities are present. Mild mitral valve regurgitation. Mild mitral annular calcification. Trileaflet aortic valve. Diffuse mild calcification and mild to moderate sclerosis of the aortic valve. No aortic stenosis. Structurally normal tricuspid valve. There is mild tricuspid valve regurgitation. The estimated pulmonary arterial pressure is 45 mmHg. BP: 144 / 78 HR: 100 Rhythm: Sinus MEASUREMENTS (Male / Female) Normal Values Technical Quality:Fair 2D ECHO LV Diastolic Diameter PLAX 3.5 cm 4.2 - 5.9 / 3.9 - 5.3 cm LV Systolic Diameter PLAX 2.8 cm IVS Diastolic Thickness 1.1 cm 0.6 - 1.0 / 0.6 - 0.9 cm LVPW Diastolic Thickness 1.1 cm 0.6 - 1.0 / 0.6 - 0.9 cm LV Relative Wall Thickness 0.6 RV Internal Dim ED PLAX 2.6 cm LVOT Diameter 2.0 cm LA Systolic Diameter LX 3.8 cm 3.0 - 4.0 / 2.7 - 3.8 cm LV Ejection Fraction MOD 4C 60.0 % LV Cardiac Index MOD 4C 1347.2 cm/minm LV Ejection Fraction 4C AL 63.4 % LV Cardiac Index 4C AL 1519.4 cm/minm M-MODE Aortic Root Diameter MM 3.0 cm LA Systolic Diameter MM 3.0 cm LA Ao Ratio MM 1.0 AV Cusp Separation MM 0.9 cm DOPPLER AV Peak Velocity 286.3 cm/s AV Peak Gradient 32.8 mmHg AV Mean Gradient 14.7 mmHg AV Velocity Time Integral 43.5 cm LVOT Peak Velocity 118.0 cm/s LVOT Peak Gradient 5.6 mmHg LVOT Velocity Time Integral 19.9 cm LVOT Cardiac Index 3518.2 cm/minm AV Area Cont Eq vti 1.4 cm AV Area Cont Eq pk 1.3 cm MV Area PHT 3.2 cm LV E' Lateral Velocity 12.9 cm/s LV E' Septal Velocity 7.7 cm/s TR Peak Velocity 318.0 cm/s TR Peak Gradient 40.4 mmHg Right Atrial Pressure 10.0 mmHg Pulmonary Artery Systolic Pressu 50.4 mmHg Right Ventricular Systolic Press 50.4 mmHg PV Peak Velocity 115.0 cm/s PV Peak Gradient 5.3 mmHg FINDINGS LEFT VENTRICLE The left ventricular systolic function is normal with an estimated ejection fraction in the range of 65-70%. Normal left ventricular size. Wall thickness is normal. No regional wall motion abnormalities are present. RIGHT VENTRICLE Normal right ventricular size and systolic function. LEFT ATRIUM The left atrial size is normal. RIGHT ATRIUM The right atrial size is normal. ATRIAL SEPTUM Normal atrial septal thickness without atrial level shunting by limited color doppler interrogation. AORTA The aortic root and proximal ascending aorta are normal in size on limited imaging. MITRAL VALVE Mild mitral valve regurgitation. Mild mitral annular calcification. AORTIC VALVE Trileaflet aortic valve. Diffuse mild calcification of the aortic valve. TRICUSPID VALVE Structurally normal tricuspid valve. There is mild tricuspid valve regurgitation. The estimated pulmonary arterial pressure is 45 mmHg. PULMONARY VALVE No pulmonary valve regurgitation or stenosis. VESSELS The inferior vena cava is dilated. PERICARDIUM No pericardial effusion. Nehemias Weber MD (Electronically Signed) Final Date:05 January 2017 16:57
[2017-01-05] MEDS: PRAVASTATIN SOD 40 MG TAB PO SCH (20:09)
[2017-01-05] MEDS: diphenhydrAMINE HCL 50 MG CAP PO PRN (22:19)
[2017-01-05] MEDS: SODIUM CHLORIDE 0.9% FLUSH 10 ML FLUSH IV FLUSH PRN (23:25)
[2017-01-06] MEDS: LEVOTHYROXINE SODIUM 25 MCG TAB PO SCH (06:19)
[2017-01-06] MEDS: LEVOTHYROXINE SODIUM 112 MCG TAB PO SCH (06:19)
[2017-01-06] MEDS: SODIUM CHLORIDE 0.9% FLUSH 10 ML FLUSH IV FLUSH PRN (06:20)
[2017-01-06] MEDS: methylPREDNISolone SOD SUCC 40 MG/1 ML VIAL IV PUSH SCH ×3 (06:20→16:44)
[2017-01-06] MEDS: RESP: ALBUTEROL 2.5 MG/3 ML NEB (PRN) INH (06:29)
[2017-01-06 06:51] LABS: AUTOMATED NEUTROPHIL # 7.9 TH/MM3 (1.8-7.7); BASOPHIL % 0.2 % (0.0-2.0); EOSINOPHIL # 0.1 TH/MM3 (0-0.4); EOSINOPHIL % 0.8 % (0.0-4.0); HEMATOCRIT 32.4 % (35.0-46.0); HEMO FLAGS DIFF FINAL; LYMPH % 4.7 % (9.0-44.0); LYMPHOCYTE # 0.4 TH/MM3 (1.0-4.8); MEAN CELL VOLUME 91.2 FL (80.0-100.0); MEAN CORPUSCULAR HEMOGLOBIN 29.7 PG (27.0-34.0); MEAN CORPUSCULAR HGB CONC 32.5 % (32.0-36.0); MONO % 2.8 % (0.0-8.0); NEUT % 91.5 % (16.0-70.0); PLATELET COUNT 333 TH/MM3 (150-450); RED BLOOD COUNT 3.55 MIL/MM3 (4.00-5.30); RED CELL DISTRIBUTION WIDTH 15.9 % (11.6-17.2); WHITE BLOOD COUNT 8.6 TH/MM3 (4.0-11.0)
[2017-01-06 06:58] LABS: INTERNATIONAL NORMALIZED RATIO 2.5 RATIO; PROTHROMBIN TIME - PATIENT 28.4 SEC (9.8-11.6)
[2017-01-06 07:50] VITALS: BP 138/74; PULSE 92; RESP 20; TEMP 97.6; O2SAT 98
[2017-01-06] MEDS: RESP: ALBUTEROL 2.5 MG/IPRATROPIUM 0.5 MG NEB (SCH) INH ×4 (07:53→20:23)
[2017-01-06 07:54] VITALS: O2SAT 98
[2017-01-06] MEDS: DOXYCYCLINE HYCLATE 100 MG TAB PO SCH ×2 (09:00→20:33)
[2017-01-06] MEDS: SODIUM CHLORIDE 0.9% FLUSH 10 ML FLUSH IV FLUSH SCH ×2 (09:13→20:33)
[2017-01-06] MEDS: LOSARTAN 25 MG TAB PO SCH (09:14)
[2017-01-06] MEDS: DILTIAZEM-CD 120 MG CAP ER PO SCH (09:14)
[2017-01-06] MEDS: ISOSORBIDE MONONITRATE 60 MG TAB PO SCH (09:14)
[2017-01-06] MEDS: TORSEMIDE 20 MG TAB PO SCH (09:15)
[2017-01-06] MEDS: BETHANECHOL CHL 25 MG TAB PO SCH ×4 (09:15→20:33)
[2017-01-06] MEDS: POTASSIUM CHLORIDE 8 MEQ CONTROLLED RELEASE TAB PO SCH (09:22)
[2017-01-06 11:50] VITALS: BP 107/73; PULSE 82; RESP 20; TEMP 97.3; O2SAT 100
--- NOTE | 2017-01-06 11:52 | HHI.PR ---
Subjective Remarks Patient seen and evaluated today in follow-up for COPD exacerbation. Doing well. Respiratory status is improved Echo reviewed, PA pressures elevated but otherwise within normal limits Objective Vitals Vital Signs Date Time Temp Pulse Resp B/P (MAP) Pulse Ox O2 Delivery O2 Flow Rate FiO2 01/06/17 09:02 Nasal Cannula 2.00 01/06/17 07:54 98 Nasal Cannula 2.00 01/06/17 07:50 97.6 92 20 138/74 (95) 98 01/05/17 23:42 97.3 85 18 127/61 (83) 98 01/05/17 20:00 92 Nasal Cannula 2.00 01/05/17 20:00 96.1 112 24 127/67 (87) 91 01/05/17 19:55 97 Nasal Cannula 2.00 01/05/17 16:00 97.0 83 16 113/63 (80) 97 I/O 01/05/17 01/05/17 01/05/17 01/06/17 01/06/17 01/06/17 06:59 14:59 22:59 06:59 14:59 22:59 Intake Total 240 ml 480 ml 240 ml Balance 240 ml 480 ml 240 ml Intake Oral 240 ml 480 ml 240 ml # Voids 2 1 4 1 # Bowel Movements 2 1 1 Result Diagram: 01/06/17 0630 01/04/17 1150 Imaging Last Impressions Chest X-Ray 01/04/17 1134 Signed Impressions: Service Date/Time: Wednesday, January 04, 2017 11:47 - CONCLUSION: 1. Stable 1.9 cm left upper lobe pulmonary mass. 2. Hyperinflation consistent with COPD. 3. Clear lungs. Sherif Mondragon Jr., MD Objective Remarks GENERAL: This is a well-nourished, well-developed patient, minimally short of breath at rest CARDIOVASCULAR: Regular rate and rhythm without murmurs, gallops, or rubs. RESPIRATORY: Decreased air flow with scattered wheezes MUSCULOSKELETAL: Extremities without clubbing, cyanosis, or edema. NEURO: Alert & Oriented x4 to person, place, time, situation. Moves all ext x4 A/P Problem List: (1) COPD exacerbation ICD Code: J44.1 - Chronic obstructive pulmonary disease with (acute) exacerbation Status: Acute Plan: nebulizer Bronchodilators, IV steroids, and antibiotics Echo pending dose, elevated PA pressures with otherwise normal structure Pulmonary consult appreciated Improved leukopenia, follow trend flu negative (2) Chronic atrial fibrillation ICD Code: I48.2 - Chronic atrial fibrillation Status: Chronic Plan: Continue warfarin, currently controlled on diltiazem INR 2.5, will follow as needed especially while on antibiotics (3) Hypothyroidism ICD Code: E03.9 - Hypothyroidism Status: Chronic Plan: Continue thyroid replacement hormone (4) CAD (coronary artery disease) ICD Code: I25.10 - CAD (coronary artery disease) Status: Acute Plan: Stable, continue home medications Discharge Planning Home when stable 1-2 days Unique Davidson MD Jan 06, 2017 11:52
[2017-01-06 15:50] VITALS: BP 129/95; PULSE 89; RESP 20; TEMP 96.5; O2SAT 95
[2017-01-06] MEDS: WARFARIN SOD 6 MG TAB PO SCH (16:44)
[2017-01-06 20:00] VITALS: BP 158/87; PULSE 88; RESP 20; TEMP 95.6; O2SAT 96
[2017-01-06 20:25] VITALS: O2SAT 98
[2017-01-06] MEDS: PRAVASTATIN SOD 40 MG TAB PO SCH (20:32)
[2017-01-06] MEDS: diphenhydrAMINE HCL 50 MG CAP PO PRN (22:39)
[2017-01-07] VITALS (7 sets, daily range): BP systolic 133–154; BP diastolic 60–78; PULSE 77–92; RESP 16–20; TEMP 96.5–97.3; O2SAT 94–99
[2017-01-07] MEDS: methylPREDNISolone SOD SUCC 40 MG/1 ML VIAL IV PUSH SCH ×2 (00:47→05:52)
[2017-01-07] MEDS: RESP: ALBUTEROL 2.5 MG/3 ML NEB (PRN) INH (04:43)
[2017-01-07] MEDS: LEVOTHYROXINE SODIUM 25 MCG TAB PO SCH (05:52)
[2017-01-07] MEDS: LEVOTHYROXINE SODIUM 112 MCG TAB PO SCH (05:52)
[2017-01-07] MEDS: RESP: ALBUTEROL 2.5 MG/IPRATROPIUM 0.5 MG NEB (SCH) INH ×3 (07:36→19:16)
[2017-01-07] MEDS: ISOSORBIDE MONONITRATE 60 MG TAB PO SCH (07:59)
[2017-01-07] MEDS: DILTIAZEM-CD 120 MG CAP ER PO SCH (07:59)
[2017-01-07] MEDS: LOSARTAN 25 MG TAB PO SCH (08:00)
[2017-01-07] MEDS: SODIUM CHLORIDE 0.9% FLUSH 10 ML FLUSH IV FLUSH SCH ×2 (08:00→20:14)
[2017-01-07] MEDS: TORSEMIDE 20 MG TAB PO SCH (08:00)
[2017-01-07] MEDS: POTASSIUM CHLORIDE 8 MEQ CONTROLLED RELEASE TAB PO SCH (08:01)
[2017-01-07] MEDS: DOXYCYCLINE HYCLATE 100 MG TAB PO SCH ×2 (08:40→20:19)
[2017-01-07] MEDS: BETHANECHOL CHL 25 MG TAB PO SCH ×4 (08:40→20:19)
[2017-01-07] MEDS ORDERED: PILL SPLITTER OTHER PRN (09:00)
[2017-01-07] MEDS: predniSONE 20 MG TAB PO SCH ×2 (09:49→20:16)
--- NOTE | 2017-01-07 11:39 | HHI.PR ---
Subjective Remarks Patient seen and evaluated today in follow-up for COPD exacerbation, doing well. Coronary consult appreciated. Change to oral medications today Objective Vitals Vital Signs Date Time Temp Pulse Resp B/P (MAP) Pulse Ox O2 Delivery O2 Flow Rate FiO2 01/07/17 08:00 96.5 82 16 154/78 (103) 94 01/07/17 07:40 99 Nasal Cannula 2.00 01/07/17 07:36 Nasal Cannula 2.00 01/07/17 00:00 96.7 92 20 142/77 (98) 97 01/06/17 20:25 98 Nasal Cannula 2.00 01/06/17 20:00 Nasal Cannula 2.00 01/06/17 20:00 95.6 88 20 158/87 (110) 96 01/06/17 15:50 96.5 89 20 129/95 (106) 95 01/06/17 11:50 97.3 82 20 107/73 (84) 100 I/O 01/06/17 01/06/17 01/06/17 01/07/17 01/07/17 01/07/17 07:00 15:00 23:00 07:00 15:00 23:00 Intake Total 240 ml 880 ml Output Total 800 ml 500 ml Balance 240 ml 80 ml -500 ml Intake Oral 240 ml 880 ml Output Urine Total 800 ml 500 ml # Voids 1 3 1 # Bowel Movements 0 Result Diagram: 01/06/17 0630 01/04/17 1150 Objective Remarks GENERAL: This is a well-nourished, well-developed patient, minimally short of breath at rest CARDIOVASCULAR: Regular rate and rhythm without murmurs, gallops, or rubs. RESPIRATORY: Decreased air flow with scattered wheezes MUSCULOSKELETAL: Extremities without clubbing, cyanosis, or edema. NEURO: Alert & Oriented x4 to person, place, time, situation. Moves all ext x4 A/P Problem List: (1) COPD exacerbation ICD Code: J44.1 - Chronic obstructive pulmonary disease with (acute) exacerbation Status: Acute Plan: nebulizer Bronchodilators, po steroids, and antibiotics Echo shows elevated PA pressures with otherwise normal structure Pulmonary consult appreciated Improved leukopenia, follow trend flu negative on home o2 (2) Chronic atrial fibrillation ICD Code: I48.2 - Chronic atrial fibrillation Status: Chronic Plan: Continue warfarin, currently controlled on diltiazem INR in am, will follow as needed especially while on antibiotics (3) Hypothyroidism ICD Code: E03.9 - Hypothyroidism Status: Chronic Plan: Continue thyroid replacement hormone (4) CAD (coronary artery disease) ICD Code: I25.10 - CAD (coronary artery disease) Status: Acute Plan: Stable, continue home medications Discharge Planning likely home in am Unique Davidson MD Jan 07, 2017 11:39
[2017-01-07] MEDS: WARFARIN SOD 6 MG TAB PO SCH (17:11)
[2017-01-07] MEDS: PRAVASTATIN SOD 40 MG TAB PO SCH (20:18)
[2017-01-07] MEDS: diphenhydrAMINE HCL 50 MG CAP PO PRN (22:05)
[2017-01-08] VITALS: BP 141/78; PULSE 79; RESP 20; TEMP 96.4; O2SAT 98
[2017-01-08] MEDS: RESP: ALBUTEROL 2.5 MG/3 ML NEB (PRN) INH (04:34)
[2017-01-08] MEDS: LEVOTHYROXINE SODIUM 25 MCG TAB PO SCH (06:04)
[2017-01-08] MEDS: LEVOTHYROXINE SODIUM 112 MCG TAB PO SCH (06:04)
[2017-01-08 08:00] VITALS: BP 158/84; PULSE 85; RESP 18; TEMP 98.1; O2SAT 95
[2017-01-08] MEDS: RESP: ALBUTEROL 2.5 MG/IPRATROPIUM 0.5 MG NEB (SCH) INH ×2 (08:01→11:05)
[2017-01-08 08:05] LABS: INTERNATIONAL NORMALIZED RATIO 5.1 RATIO; PROTHROMBIN TIME - PATIENT 60.8 SEC (9.8-11.6)
[2017-01-08] MEDS: LOSARTAN 25 MG TAB PO SCH (08:36)
[2017-01-08] MEDS: BETHANECHOL CHL 25 MG TAB PO SCH (08:37)
[2017-01-08] MEDS: TORSEMIDE 20 MG TAB PO SCH (08:38)
[2017-01-08] MEDS: POTASSIUM CHLORIDE 8 MEQ CONTROLLED RELEASE TAB PO SCH (08:38)
[2017-01-08] MEDS: ISOSORBIDE MONONITRATE 60 MG TAB PO SCH (08:39)
[2017-01-08] MEDS: DILTIAZEM-CD 120 MG CAP ER PO SCH (08:39)
[2017-01-08] MEDS: SODIUM CHLORIDE 0.9% FLUSH 10 ML FLUSH IV FLUSH SCH (08:40)
[2017-01-08] MEDS: predniSONE 20 MG TAB PO SCH (08:40)
[2017-01-08] MEDS: DOXYCYCLINE HYCLATE 100 MG TAB PO SCH (08:43)
[2017-01-08 09:34] VITALS: O2SAT 98
[2017-01-08] MEDS ORDERED: ALBU0.08 INH (12:20)
[2017-01-08] MEDS ORDERED: DOXY100T PO (12:20)
--- NOTE | 2017-01-08 12:21 | HHI.DCPOC ---
Discharge Care Plan Diagnosis: (1) Elevated INR (2) Afib (3) COPD exacerbation Goals to Promote Your Health * To prevent worsening of your condition and complications * To maintain your health at the optimal level Directions to Meet Your Goals Take your medications as prescribed Follow your dietary instruction Follow activity as directed Keep your appointments as scheduled Take your immunizations and boosters as scheduled If your symptoms worsen call your PCP, if no PCP go to Urgent Care Center or Emergency Room Smoking is Dangerous to Your Health. Avoid second hand smoke Call the 24-hour hour crisis hotline for domestic abuse at Unique Davidson MD Jan 08, 2017 12:21
--- NOTE | 2017-01-10 14:01 | RSPPFT ---
DATE OF PROCEDURE: 01/08/17 COMMENTS: VOLUMES DYNAMIC: FVC moderately reduced; FEV1 severely reduced. FLOWS: FEV1% moderately reduced; FEF 25-75 severely reduced. IMPRESSION: Moderately severe to severe obstructive ventilatory defect with improvement post-bronchodilator.
== END 2017-01-08 13:08 | disposition home or self-care (01) | DRG 192 ==
LOC: PHED 11:28 → PHEDA 13:25 → PH3A 14:40 → OBSVTOIN 01-05 12:28
PROVIDERS: ADMIT Hospitalist; ATTEND Hospitalist
DX: J44.1 Chronic obstructive pulmonary disease with (acute) exacerbation (principal); I50.9 Heart failure, unspecified; Z99.81 Dependence on supplemental oxygen; I11.0 Hypertensive heart disease with heart failure; E03.9 Hypothyroidism, unspecified; M19.90 Unspecified osteoarthritis, unspecified site; K21.9 Gastro-esophageal reflux disease without esophagitis; I48.2 Chronic atrial fibrillation; E78.00 Pure hypercholesterolemia, unspecified; I25.10 Atherosclerotic heart disease of native coronary artery without angina pectoris; Z96.649 Presence of unspecified artificial hip joint; Z96.651 Presence of right artificial knee joint; R09.02 Hypoxemia; D72.819 Decreased white blood cell count, unspecified; Z79.01 Long term (current) use of anticoagulants; Z85.828 Personal history of other malignant neoplasm of skin; Z87.891 Personal history of nicotine dependence
CPT/HCPCS: 71010; 80053; 82550; 83605; 83735; 83880; 84484; 85025; 85610; 85730; 87804; 93005; 93306; 94060; 94150; 94620; 94640; 94664; J2920; J2930; J7040; J7512; J7613; Q0163

== ENCOUNTER → 2017-02-08 | Outpatient (CLI) | payer MEDICARE, OTHER ==
[~2017-02-08] MED LIST changes: +ALBU0.08 INH; -DILT-60 PO; +DILT120C50 PO; +DOXY100T PO; -PRED10PA2 PO; -WARF-23 PO; +WARF-60 PO
[2017-02-08 12:41] LABS: HEMATOCRIT 35.3 % (35.0-46.0); MEAN CELL VOLUME 92.1 FL (80.0-100.0); MEAN CORPUSCULAR HEMOGLOBIN 30.2 PG (27.0-34.0); MEAN CORPUSCULAR HGB CONC 32.8 % (32.0-36.0); PLATELET COUNT 173 TH/MM3 (150-450); RED BLOOD COUNT 3.84 MIL/MM3 (4.00-5.30); RED CELL DISTRIBUTION WIDTH 17.1 % (11.6-17.2); REVIEW FLAG FINAL; WHITE BLOOD COUNT 4.9 TH/MM3 (4.0-11.0)
[2017-02-08 13:14] LABS: ANION GAP 6 MEQ/L (5-15); AST (GOT) 10 U/L (15-37); BICARBONATE 30.4 MEQ/L (21.0-32.0); BLOOD UREA NITROGEN 15 MG/DL (7-18); CHLORIDE 101 MEQ/L (98-107); GLOMERULAR FILTRATION RATE 49 ML/MIN (>89); GLUCOSE,FASTING 76 MG/DL (74-99); POTASSIUM 3.9 MEQ/L (3.5-5.1); SODIUM (NA) 137 MEQ/L (136-145)
[2017-02-08 13:15] LABS: ALT (GPT) 10 U/L (10-53)
[2017-02-08 13:25] LABS: ALKALINE PHOSPHATASE 87 U/L (45-117); HDL CHOLESTEROL 68.1 MG/DL (40.0-60.0); LDL CHOLESTEROL 45 MG/DL (0-99); TOTAL BILIRUBIN ADULT 0.7 MG/DL (0.2-1.0)
[2017-02-08 13:35] LABS: CREATINE KINASE 37 U/L (26-192)
== END ==
LOC: PLAB 08:55
DX: E03.9 Hypothyroidism, unspecified (principal); N18.3 Chronic kidney disease, stage 3 (moderate); E78.5 Hyperlipidemia, unspecified; Z79.899 Other long term (current) drug therapy
CPT/HCPCS: 36415; 80053; 80061; 82550; 84443; 85027

== ENCOUNTER 2017-02-18 14:08 | Observation (INO) | payer MEDICARE, OTHER ==
[~2017-02-18] VITALS: Ht 157.5 cm; Wt 72.5 kg
[2017-02-18] VITALS (8 sets, daily range): BP systolic 113–147; BP diastolic 57–81; PULSE 72–80; RESP 20–27; TEMP 95.4–98.5; O2SAT 96–99
[2017-02-18] MEDS ORDERED: RESP: ALBUTEROL 2.5 MG/IPRATROPIUM 0.5 MG NEB (SCH) NEB ONE (14:15)
[2017-02-18] MEDS ORDERED: SODIUM CHLORIDE 0.9% FLUSH 10 ML FLUSH IVF PRN (14:15)
[2017-02-18 14:40] LABS: AUTOMATED NEUTROPHIL # 4.5 TH/MM3 (1.8-7.7); BASOPHIL % 0.5 % (0.0-2.0); BLOOD GAS VENOUS HCO3 34 mmol/L (22-26); BLOOD GAS VENOUS O2 CONTENT 6.8 Vol % (9.0-17.0); BLOOD GAS VENOUS O2 HGB SAT 44 % (70-76); BLOOD GAS VENOUS PCO2 70 mmHg (44-48); BLOOD GAS VENOUS PO2 28 mmHg (35-40); BLOOD GAS VENOUS pH 7.31 (7.360-7.400); EOSINOPHIL # 0.1 TH/MM3 (0-0.4); EOSINOPHIL % 1.7 % (0.0-4.0); HEMATOCRIT 34.2 % (35.0-46.0); LYMPH % 14.7 % (9.0-44.0); LYMPHOCYTE # 0.9 TH/MM3 (1.0-4.8); MEAN CELL VOLUME 91.9 FL (80.0-100.0); MEAN CORPUSCULAR HEMOGLOBIN 29.5 PG (27.0-34.0); MONO % 5.9 % (0.0-8.0); NEUT % 77.2 % (16.0-70.0); PLATELET COUNT 250 TH/MM3 (150-450); RED BLOOD COUNT 3.72 MIL/MM3 (4.00-5.30); RED CELL DISTRIBUTION WIDTH 16.4 % (11.6-17.2); TEMP CORR TO 98.6; WHITE BLOOD COUNT 5.8 TH/MM3 (4.0-11.0)
[2017-02-18 14:41] LABS: CRITICAL VALUE YES; DRAW SITE AC; LITER FLOW 2 L/M; OXYGEN DEVICE NASAL CANNULA; STAT YES
[2017-02-18 14:44] LABS: HEMO FLAGS DIFF FINAL
[2017-02-18 14:59] LABS: CHLORIDE 102 MEQ/L (98-107); POTASSIUM 4.2 MEQ/L (3.5-5.1); SODIUM (NA) 139 MEQ/L (136-145)
[2017-02-18] MEDS ORDERED: methylPREDNISolone SOD SUCC 125 MG/2 ML VIAL IV PUSH ONE (15:00)
[2017-02-18 15:03] LABS: ANION GAP 3 MEQ/L (5-15); BICARBONATE 34.2 MEQ/L (21.0-32.0); BLOOD UREA NITROGEN 19 MG/DL (7-18)
[2017-02-18 15:06] LABS: ALT (GPT) 13 U/L (10-53); APTT (PATIENT) 36.9 SEC (24.3-30.1); AST (GOT) 11 U/L (15-37); GLOMERULAR FILTRATION RATE 52 ML/MIN (>89); INTERNATIONAL NORMALIZED RATIO 2.3 RATIO; PROTHROMBIN TIME - PATIENT 26.8 SEC (9.8-11.6)
[2017-02-18 15:08] LABS: TOTAL BILIRUBIN ADULT 0.7 MG/DL (0.2-1.0)
[2017-02-18 15:09] LABS: ALKALINE PHOSPHATASE 93 U/L (45-117)
[2017-02-18 15:10] LABS: CREATINE KINASE 39 U/L (26-192)
--- NOTE | 2017-02-18 15:49 | RADRPT ---
EXAM DATE/TIME: 02/18/2017 14:44 [facility] COMPARISON: CHEST SINGLE AP, January 04, 2017, 11:47. INDICATIONS : Shortness of breath with bilateral lower extremity swelling. MEDICAL HISTORY : Chronic obstructive pulmonary disease. Cardiovascular disease. Hypertension Renal insufficiency SURGICAL HISTORY : Appendectomy. Cholecystectomy. Hysterectomy ENCOUNTER: Initial ACUITY: 1 day PAIN SCORE: 0 LOCATION: Bilateral upper chest FINDINGS: A single portable frontal view of the chest shows a 2.1 cm nodule within the left apex. This may be s lightly larger than the prior study. Hyperinflation suggesting COPD. No infiltrate or effusion. Heart is normal in size. Degenerative spine. Old trauma involving the left shoulder. 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 CONCLUSION: 1. 2.1 cm left upper lobe pulmonary nodule appears slightly larger from the prior study. This could b e technical in nature. 2. COPD. 3. No acute infiltrate. Sherif Mondragon Jr., MD on February 18, 2017 at 15:44 Board Certified Radiologist. This report was verified electronically.
--- NOTE | 2017-02-18 16:06 | PD ---
HPI Chief Complaint: Respiratory Symptoms Time Seen by Provider: 14:13 Travel History International Travel<30 days: No Contact w/Intl Traveler<30days: No Traveled to known affect area: No History of Present Illness HPI Patient is an 86-year-old female presents emergency department for evaluation of shortness of breath. Patient states has a history of COPD and symptoms been present past few days and rapidly worsening. Denies any fever denies any sputum production but does endorse a dry cough. She's been taking her nebulizers at home without relief. States her symptoms are moderate to severe, worsening, context as above, associated signs symptoms as above. PFSH Past Medical History Hx Anticoagulant Therapy: Yes (coumadin) Anemia: Yes Arthritis: No Asthma: No Atrial Fibrillation: Yes Autoimmune Disease: No Blood Disorders: No Anxiety: No Depression: No Heart Rhythm Problems: No Cancer: No Cardiovascular Problems: No High Cholesterol: Yes Chemotherapy: No Chest Pain: No Congestive Heart Failure: Yes COPD: Yes Cerebrovascular Accident: No Diabetes: No Diminished Hearing: No Endocrine: Yes Gastrointestinal Disorders: Yes (HX OF ESOPHAGEAL STRICTURE/DILATION) GERD: Yes Glaucoma: No Genitourinary: No Headaches: Yes Hepatitis: No Hiatal Hernia: No Hypertension: Yes Immune Disorder: No Kidney Stones: No Musculoskeletal: No Neurologic: No Psychiatric: No Reproductive: No Respiratory: Yes Migraines: No Myocardial Infarction: No Radiation Therapy: No Renal Failure: No Seizures: No Sleep Apnea: No Thyroid Disease: Yes Ulcer: No Influenza Vaccination: Yes ?: Not Past Surgical History Abdominal Surgery: Yes AICD: No Appendectomy: Yes Arteriovenous Shunt: No Cardiac Surgery: No Cholecystectomy: Yes Ear Surgery: No Endocrine Surgery: No Eye Surgery: No Genitourinary Surgery: No Gynecologic Surgery: Yes Hysterectomy: Yes Insulin Pump: No Joint Replacement: Yes Oral Surgery: No Pacemaker: No Thoracic Surgery: No Other Surgery: Yes Social History Alcohol Use: Yes (RARE) Tobacco Use: No (quit 26 years ago) Substance Use: No Allergies-Medications (Allergen,Severity, Reaction): Coded Allergies: aspirin (Unverified Allergy, Severe, Rash, 12/06/16) Reported Meds & Prescriptions Reported Meds & Active Scripts Active Albuterol Neb (Albuterol Sulfate) 2.5 Mg/3 Ml Neb 2.5 Mg INH Q2HR NEB PRN Reported Warfarin 6 Mg Tab 5 Mg PO DAILY Pulmicort Respules (Budesonide) 0.25 Mg/2 Ml Neb 0.25 Mg NEB Q12HR NEB Isosorbide Mononitrate ER (Isosorbide Mononitrate) 60 Mg Tab 60 Mg PO DAILY Klor-Con M15 (Potassium Chloride Microencaps) 15 Meq Tab 15 Meq PO DAILY Torsemide 20 Mg Tab 20 Mg PO DAILY Synthroid (Levothyroxine Sodium) 137 Mcg Tab 137 Mcg PO DAILY Flonase Nasal [place] (Fluticasone Nasal [place]) 50 Mcg/Act [place] 1 [place] EACH NARE BID PRN Diltiazem CD 24 HR 120 Mg Caper 120 Mg PO DAILY Cozaar (Losartan Potassium) 25 Mg Tab 25 Mg PO DAILY Combivent Respimat Inh (Ipratropium-Albuterol Inh) 20-100 Long Term/Act Aero 1 Puff INH QID PRN Simvastatin 20 Mg Tab 20 Mg PO HS Review of Systems Except as stated in HPI: all other systems reviewed are Neg Physical Exam Narrative GENERAL: Well-developed well-nourished, tachypneic. SKIN: Focused skin assessment warm/dry. HEAD: Atraumatic. Normocephalic. EYES: Pupils equal and round. No scleral icterus. No injection or drainage. ENT: No nasal bleeding or discharge. Mucous membranes pink and moist. NECK: Trachea midline. No JVD. CARDIOVASCULAR: Regular rate and rhythm. No murmur appreciated. 2+ but equal pulses in all 4 extremities. RESPIRATORY: Patient with intercostal and subcostal retractions. Decreased air entry. Clear to auscultation. Breath sounds equal bilaterally. Increased work of breathing. GASTROINTESTINAL: Abdomen soft, non-tender, nondistended. Hepatic and splenic margins not palpable. MUSCULOSKELETAL: No obvious deformities. No clubbing. No cyanosis. No edema. NEUROLOGICAL: Awake and alert. No obvious cranial nerve deficits. Motor grossly within normal limits. Normal speech. PSYCHIATRIC: Appropriate mood and affect; insight and judgment normal. Data Data Last Documented VS Vital Signs Date Time Temp Pulse Resp B/P (MAP) Pulse Ox O2 Delivery O2 Flow Rate FiO2 02/18/17 15:58 72 20 113/57 (75) 99 Nasal Cannula 2.00 02/18/17 14:15 98.5 Orders Orders Electrocardiogram (02/18/17 14:13) B-Type Natriuretic Peptide (02/18/17 14:13) Ckmb (Isoenzyme) Profile (02/18/17 14:13) Complete Blood Count With Diff (02/18/17 14:13) Comprehensive Metabolic Panel (02/18/17 14:13) Magnesium (Mg) (02/18/17 14:13) Prothrombin Time / Inr (Pt) (02/18/17 14:13) Act Partial Throm Time (Ptt) (02/18/17 14:13) Troponin I (02/18/17 14:13) Chest, Single Ap (02/18/17 14:13) Ecg Monitoring (02/18/17 14:13) Iv Access Insert/Monitor (02/18/17 14:13) Oximetry (02/18/17 14:13) Oxygen Administration (02/18/17 14:13) Sodium Chloride 0.9% Flush (Ns Flush) (02/18/17 14:15) Albuterol-Ipratropium Neb (Duoneb Neb) (02/18/17 14:15) Blood Gas Venous (Vbg) (02/18/17 14:15) Methylprednisolone So Succ Inj (Solumedr (02/18/17 15:00) Admit Order (Ed Use Only) (02/18/17 ) Labs Laboratory Tests Test 02/18/17 14:30 White Blood Count 5.8 TH/MM3 Red Blood Count 3.72 MIL/MM3 Hemoglobin 10.9 GM/DL Hematocrit 34.2 % Mean Corpuscular Volume 91.9 FL Mean Corpuscular Hemoglobin 29.5 PG Mean Corpuscular Hemoglobin Concent 32.0 % Red Cell Distribution Width 16.4 % Platelet Count 250 TH/MM3 Mean Platelet Volume 7.7 FL Neutrophils (%) (Auto) 77.2 % Lymphocytes (%) (Auto) 14.7 % Monocytes (%) (Auto) 5.9 % Eosinophils (%) (Auto) 1.7 % Basophils (%) (Auto) 0.5 % Neutrophils # (Auto) 4.5 TH/MM3 Lymphocytes # (Auto) 0.9 TH/MM3 Monocytes # (Auto) 0.3 TH/MM3 Eosinophils # (Auto) 0.1 TH/MM3 Basophils # (Auto) 0.0 TH/MM3 CBC Comment DIFF FINAL Differential Comment Prothrombin Time 26.8 SEC Prothromb Time International Ratio 2.3 RATIO Activated Partial Thromboplast Time 36.9 SEC Blood Gas Puncture Site AC Blood Gas Patient Temperature 98.6 Venous Blood pH 7.31 Venous Blood Partial Pressure CO2 70 mmHg Venous Blood Partial Pressure O2 28 mmHg Venous Blood HCO3 34 mmol/L Venous Blood Oxygen Saturation 44 % Venous Blood Oxygen Content 6.8 Vol % Venous Blood Base Excess 8.0 mmol/L Oxygen Delivery Device NASAL CANNULA Blood Gas Liter Flow 2 L/M Blood Urea Nitrogen 19 MG/DL Creatinine 1.00 MG/DL Random Glucose 99 MG/DL Total Protein 6.2 GM/DL Albumin 3.3 GM/DL Calcium Level 9.5 MG/DL Magnesium Level 2.0 MG/DL Alkaline Phosphatase 93 U/L Aspartate Amino Transf (AST/SGOT) 11 U/L Alanine Aminotransferase (ALT/SGPT) 13 U/L Total Bilirubin 0.7 MG/DL Sodium Level 139 MEQ/L Potassium Level 4.2 MEQ/L Chloride Level 102 MEQ/L Carbon Dioxide Level 34.2 MEQ/L Anion Gap 3 MEQ/L Estimat Glomerular Filtration Rate 52 ML/MIN Total Creatine Kinase 39 U/L Troponin I LESS THAN 0.02 NG/ML B-Type Natriuretic Peptide 65 PG/ML MDM Medical Decision Making Medical Screen Exam Complete: Yes Emergency Medical Condition: Yes Differential Diagnosis COPD exacerbation, hypercapnic respiratory failure, pneumonia, hypoxia, CHF. Narrative Course patient roomed emergency department, initially very tight breath sounds in 1-2 word dyspnea, given DuoNeb and Solu-Medrol, is improving slowly but certainly has some CO2 retention which is acute with a pH is 7.31 and PCO2 of 70. Clinically she is improving well but given her age and her acute hypercapnia I recommended observation status for she is agreeable. Discussed with Dr. Davidson who agrees for observation status. Diagnosis Primary Impression: COPD exacerbation Additional Impression: Hypercapnic respiratory failure Admitting Information Admitting Physician Requests: Observation Scripts Prednisone (Prednisone) 20 Mg Tab 20 MG PO BID for Inflammation for 10 Days, #20 TAB 20 mg bid x 3 days then 20mg daily for 3 dyas then 1/2 tab daily x 3 days Prov: Unique Davidson MD 02/21/17 Azithromycin (Azithromycin) 250 Mg Tab 250 MG PO DAILY for Infection, #5 TAB Prov: Unique Davidson MD 02/21/17 Condition: Stable Abdelrahman Bass MD Feb 18, 2017 16:06
[2017-02-18] MEDS ORDERED: SODIUM CHLORIDE 0.9% FLUSH 10 ML FLUSH IV FLUSH PRN (17:00)
[2017-02-18] MEDS ORDERED: RESP: ALBUTEROL 2.5 MG/3 ML NEB (PRN) INH (17:00)
[2017-02-18] MEDS: AZITHROMYCIN INJ 500 MG in SODIUM CHLOR 0.9% 250 ML INJ 250 ML IV SCH (17:42)
--- NOTE | 2017-02-18 18:12 | HHI.HP ---
HPI Service [facility] Primary Care Physician Jose Rafael Granado MD Admission Diagnosis Copd Exacerbation, Hypercapnea. Diagnoses: (1) Lower extremity edema (2) COPD exacerbation (3) Chronic anemia (4) Hypothyroidism (5) CAD (coronary artery disease) (6) Chronic atrial fibrillation Chief Complaint: Worsening bilateral lower extremity edema Shortness of breath Travel History International Travel<30 Days: No Contact w/Intl Traveler <30 Da: No Traveled to Known Affected Are: No History of Present Illness Ms. Baxter is a 86-year-old female patient with a known medical history of CHF and COPD, atrial fibrillation on Coumadin, HTN, and dyslipidemia who presented to the ED with complaints of worsening bilateral lower extremity pitting edema. Patient states that she has noticed increasing swelling in bilateral lower extremities x 3 days, does complain of chronic shortness of breath due to her COPD, requires 2 L NC at home. Denies any recent fever, chills , cough, ab pain, n/v/d os dysuria. Denies any changes in her medications. Denies any recent antibiotic use or steroid use. PCP is Dr. Granado, last seen a couple month ago. Inbound Call Center Agent is Dr. Cavazos, has not seen in many months. Patient follows with Dr. Carter for pulmonology. Review of Systems Constitutional: DENIES: Fever, Chills Eyes: DENIES: Blurred vision Respiratory: COMPLAINS OF: Shortness of breath, DENIES: Cough Cardiovascular: COMPLAINS OF: Dyspnea on Exertion, Lower Extremity Edema, DENIES: Chest pain, Palpitations Gastrointestinal: DENIES: Abdominal pain, Black stools, Constipation, Diarrhea , Nausea, Vomiting Psychiatric: DENIES: Anxiety Except as stated in HPI: all other systems reviewed are Neg Past Family Social History Past Medical History Chronic anemia Atrial fibrillation on Coumadin Dyslipidemia COPD CHF History of esophageal strictures/dilation GERD Hypertension Thyroid disease Past Surgical History Appendectomy Cholecystectomy Hysterectomy Bilateral knee and hip replacements Reported Medications Active Albuterol Neb (Albuterol Sulfate) 2.5 Mg/3 Ml Neb 2.5 Mg INH Q2HR NEB PRN Reported Warfarin 6 Mg Tab 5 Mg PO DAILY Pulmicort Respules (Budesonide) 0.25 Mg/2 Ml Neb 0.25 Mg NEB Q12HR NEB Isosorbide Mononitrate ER (Isosorbide Mononitrate) 60 Mg Tab 60 Mg PO DAILY Klor-Con M15 (Potassium Chloride Microencaps) 15 Meq Tab 15 Meq PO DAILY Torsemide 20 Mg Tab 20 Mg PO DAILY Synthroid (Levothyroxine Sodium) 137 Mcg Tab 137 Mcg PO DAILY Flonase Nasal [place] (Fluticasone Nasal [place]) 50 Mcg/Act [place] 1 [place] EACH NARE BID PRN Diltiazem CD 24 HR 120 Mg Caper 120 Mg PO DAILY Cozaar (Losartan Potassium) 25 Mg Tab 25 Mg PO DAILY Combivent Respimat Inh (Ipratropium-Albuterol Inh) 20-100 [place]/Act Aero 1 Puff INH QID PRN Simvastatin 20 Mg Tab 20 Mg PO HS Allergies: Coded Allergies: aspirin (Unverified Allergy, Severe, Rash, 12/06/16) Active Ordered Medications Current Medications Medications (Trade) Dose Ordered Sig/Nancy Route Start Time Stop Time Status Last Admin (NS Flush) 2 ml UNSCH PRN IVF 02/18/17 14:15 02/18/17 15:03 (NS Flush) 2 ml BID IV FLUSH 02/18/17 21:00 (NS Flush) 2 ml UNSCH PRN IV FLUSH 02/18/17 17:00 (Duoneb Neb) 1 ampule Q6HR NEB INH 02/18/17 22:00 (Albuterol Neb) 2.5 mg Q2HR NEB PRN INH 02/18/17 17:00 Azithromycin 500 mg/Sodium Chloride 250 ml @ 250 mls/hr Q24H IV 02/18/17 17:00 02/18/17 17:42 Family History Mother of lung cancer. Social History Denies any current tobacco use. Denies any alcohol use. Denies any illicit drug use. Physical Exam Vital Signs Vital Signs Date Time Temp Pulse Resp B/P (MAP) Pulse Ox O2 Delivery O2 Flow Rate FiO2 02/18/17 17:14 02/18/17 15:58 72 20 113/57 (75) 99 Nasal Cannula 2.00 02/18/17 14:32 22 97 Nasal Cannula 2.00 02/18/17 14:27 97 Nasal Cannula 2.00 02/18/17 14:19 97 Nasal Cannula 2.00 02/18/17 14:19 97 Nasal Cannula 2.00 02/18/17 14:15 98.5 79 26 145/80 (101) 97 Physical Exam GENERAL: This is a well-nourished, well-developed patient, lying in bed in no apparent distress. SKIN: No rashes, ecchymoses or lesions. Warm and dry. HEAD: Atraumatic. Normocephalic. Pupils equal round and reactive. Extraocular motions intact. No scleral icterus. No injection or drainage. Nose without bleeding. Throat without erythema, tonsillar hypertrophy or exudate. Uvula midline. Airway patent. NECK: Trachea midline. No JVD. Supple. CARDIOVASCULAR: Regular rate and rhythm without murmurs, gallops, or rubs. RESPIRATORY: Clear to auscultation. Breath sounds equal bilaterally. No wheezes , rales, or rhonchi. GASTROINTESTINAL: Abdomen soft, non-tender, nondistended. No hepato-splenomegaly , or palpable masses. No guarding. MUSCULOSKELETAL: Extremities without clubbing, cyanosis. No joint tenderness, effusion, or edema noted. Bilateral lower extremity edema 2+. NEUROLOGICAL: Awake and alert. Cranial nerves II through XII intact. Motor and sensory grossly within normal limits. Five out of 5 muscle strength in all muscle groups. Normal speech. Laboratory Laboratory Tests Test 02/18/17 14:30 White Blood Count 5.8 Red Blood Count 3.72 Hemoglobin 10.9 Hematocrit 34.2 Mean Corpuscular Volume 91.9 Mean Corpuscular Hemoglobin 29.5 Mean Corpuscular Hemoglobin Concent 32.0 Red Cell Distribution Width 16.4 Platelet Count 250 Mean Platelet Volume 7.7 Neutrophils (%) (Auto) 77.2 Lymphocytes (%) (Auto) 14.7 Monocytes (%) (Auto) 5.9 Eosinophils (%) (Auto) 1.7 Basophils (%) (Auto) 0.5 Neutrophils # (Auto) 4.5 Lymphocytes # (Auto) 0.9 Monocytes # (Auto) 0.3 Eosinophils # (Auto) 0.1 Basophils # (Auto) 0.0 CBC Comment DIFF FINAL Differential Comment Prothrombin Time 26.8 Prothromb Time International Ratio 2.3 Activated Partial Thromboplast Time 36.9 Blood Gas Puncture Site AC Blood Gas Patient Temperature 98.6 Venous Blood pH 7.31 Venous Blood Partial Pressure CO2 70 Venous Blood Partial Pressure O2 28 Venous Blood HCO3 34 Venous Blood Oxygen Saturation 44 Venous Blood Oxygen Content 6.8 Venous Blood Base Excess 8.0 Oxygen Delivery Device NASAL CANNULA Blood Gas Liter Flow 2 Blood Urea Nitrogen 19 Creatinine 1.00 Random Glucose 99 Total Protein 6.2 Albumin 3.3 Calcium Level 9.5 Magnesium Level 2.0 Alkaline Phosphatase 93 Aspartate Amino Transf (AST/SGOT) 11 Alanine Aminotransferase (ALT/SGPT) 13 Total Bilirubin 0.7 Sodium Level 139 Potassium Level 4.2 Chloride Level 102 Carbon Dioxide Level 34.2 Anion Gap 3 Estimat Glomerular Filtration Rate 52 Total Creatine Kinase 39 Troponin I LESS THAN 0.02 B-Type Natriuretic Peptide 65 Result Diagram: 02/18/17 1430 02/18/17 1430 Imaging Last Impressions Chest X-Ray 02/18/17 1413 Signed Impressions: Service Date/Time: Saturday, February 18, 2017 14:44 - CONCLUSION: 1. 2.1 cm left upper lobe pulmonary nodule appears slightly larger from the prior study. This could be technical in nature. 2. COPD. 3. No acute infiltrate. MD Aravind Coffman Jr. VTE Risk Assessment Caprini VTE Risk Assessment: Mod/High Risk (score >= 2) Caprini Risk Assessment Model Point Value = 1 Point Value = 2 Point Value = 3 Point Value = 5 Age 41-60 Minor surgery BMI > 25 kg/m2 Swollen legs Varicose veins or History of unexplained or recurrent spontaneous Oral contraceptives or hormone replacement Sepsis (< 1 month) Serious lung disease, including pneumonia (< 1 month) Abnormal pulmonary function Acute myocardial infarction Congestive heart failure (< 1 month) History of inflammatory bowel disease Medical patient at bed rest Age 61-74 Arthroscopic surgery Major open surgery (> 45 min) Laparoscopic surgery (> 45 min) Malignancy Confined to bed (> 72 hours) Immobilizing plaster cast Central venous access Age >= 75 History of VTE Family history of VTE Factor V Leiden Prothrombin [id number] Lupus anticoagulant Anticardiolipin antibodies Elevated serum homocysteine Heparin-induced thrombocytopenia Other congenital or acquired thrombophilia Stroke (< 1 month) Elective arthroplasty Hip, pelvis, or leg fracture Acute spinal cord injury (< 1 month) Prophylaxis Regimen Total Risk Factor Score Risk Level Prophylaxis Regimen 0-1 Low Early ambulation 2 Moderate Order ONE of the following: *Sequential Compression Device (SCD) *Heparin 5000 units SQ BID 3-4 Higher Order ONE of the following medications: *Heparin 5000 units SQ TID *Enoxaparin/Lovenox 40 mg SQ daily (WT < 150 kg, CrCl > 30 mL/min) *Enoxaparin/Lovenox 30 mg SQ daily (WT < 150 kg, CrCl > 10-29 mL/min) *Enoxaparin/Lovenox 30 mg SQ BID (WT < 150 kg, CrCl > 30 mL/min) AND/OR *Sequential Compression Device (SCD) 5 or more Highest Order ONE of the following medications: *Heparin 5000 units SQ TID (Preferred with Epidurals) *Enoxaparin/Lovenox 40 mg SQ daily (WT < 150 kg, CrCl > 30 mL/min) *Enoxaparin/Lovenox 30 mg SQ daily (WT < 150 kg, CrCl > 10-29 mL/min) *Enoxaparin/Lovenox 30 mg SQ BID (WT < 150 kg, CrCl > 30 mL/min) AND *Sequential Compression Device (SCD) Assessment and Plan Problem List: (1) COPD exacerbation ICD Code: J44.1 - Chronic obstructive pulmonary disease with (acute) exacerbation Status: Acute Plan: Patient has been given Methylprednisone 125 mg IV in ED. Will start on Solumedrol IV scheduled. Breath sounds diminished throughout lung field. Started on Azithromycin IV. Monitor for fevers, have been afebrile. CBC reviewed showing WBC WNL. Follow labs in am. CXR reviewed showing upper lobe pulmonary nodule, 2.1 cm in length, larger from prior study. COPD present on xray. No infiltrate. Duonebs scheduled and PRN. Supplemental O2 to keeps sats >92%. On home O2, 2L NC. Dr. Carter, patient's supervisor files has been consulted. appreciate further input and recommendations regarding CT lung nodule finding. VBG reviewed showing hypercapnia, pCo2 70 with pO2 28. Will order BIPAP for night, appreciate recommendations from pulmonology. (2) Chronic atrial fibrillation ICD Code: I48.2 - Chronic atrial fibrillation Status: Chronic Plan: Continue home Coumadin. Follow INR, today 2.3 (3) Lower extremity edema ICD Code: R60.0 - Localized edema Plan: Will add Lasix 20 mg IV BID for now. Bilateral lower extremity edema pitting 2+. Continue potassium replacement. Follow BMP in am. Encourage elevation of legs. BNP is WNL, does not appear to be CHF exacerbation. (4) Chronic anemia ICD Code: D64.9 - Anemia, unspecified Plan: Mildly anemic. Continue to follow CBC. Supportive care. (5) Hypothyroidism ICD Code: E03.9 - Hypothyroidism Status: Chronic Plan: Continue home Levothyroxine. (6) Dyslipidemia ICD Code: E78.5 - Hyperlipidemia, unspecified Plan: Continue home statin. (7) CAD (coronary artery disease) ICD Code: I25.10 - CAD (coronary artery disease) Status: Chronic Plan: Continue home Imdur, Cardizem and Cozaar. Continue to monitor BP trend. Continue cardiac telemetry to rule out arrhythmia. DVT Prophylaxis: Coumadin. Will hold off on SCDs due to severe swelling in bilater lower extremities. Follow. Radha Angel Feb 18, 2017 18:12
[2017-02-18] MEDS ORDERED: NON-FORMULARY DRUG (Ipratropium-Albuterol Inh (Combivent Respimat Inh) 1 PUFF) INH PRN (18:30)
[2017-02-18] MEDS ORDERED: FLUTICASONE PROPIONATE 50 MCG/ACT 16 GM NASAL SPRAY EACH NARE PRN (18:30)
[2017-02-18] MEDS ORDERED: ALBUTEROL SULFATE 90 MCG/ACT HFA 8 GM INHALER INH PRN (19:45)
[2017-02-18] MEDS ORDERED: TIOTROPIUM BROMIDE 18 MCG INH INH PRN (19:45)
[2017-02-18] MEDS: SODIUM CHLORIDE 0.9% FLUSH 10 ML FLUSH IV FLUSH SCH (20:22)
[2017-02-18] MEDS: PRAVASTATIN SOD 40 MG TAB PO SCH (20:26)
[2017-02-18] MEDS: RESP: ALBUTEROL 2.5 MG/IPRATROPIUM 0.5 MG NEB (SCH) INH (21:12)
--- NOTE | 2017-02-18 23:07 | MB ---
cc: ZACK HOU M.D., STEVEN MAKARY, WAFIK F. M.D. WAHBA, WAHBA DATE OF CONSULTATION 02/18/17 REASON FOR CONSULTATION Respiratory failure, COPD exacerbation, CHF. HISTORY OF PRESENT ILLNESS Mrs. Baxter is an 86-year-old female with known severe COPD as well as history of congestive heart failure and atrial fibrillation. The patient presents to the emergency room with increasing shortness of breath, increasing ankle edema, progressively worse [id number] days prior to hospitalization. The patient has chronic respiratory failure on home oxygen therapy 2 liters nasal cannula. She denies history of fever, chills, hemoptysis, TB or previous industrial exposure. PAST MEDICAL HISTORY 1. Her past medical history is that of COPD of severe degree. 2. Congestive heart failure. 3. Atrial fibrillation. 4. History of esophageal stricture for which she had dilatation in the past. 5. Hypertension. 6. Acid reflux disease. 7. Hypothyroidism on replacement therapy. 8. She did have a previous appendectomy, cholecystectomy and hysterectomy as well as bilateral knee replacements as well as bilateral hip replacements. MEDICATIONS AT HOME 1. Albuterol nebulizer as needed. 2. Pulmicort twice daily. 3. Coumadin. 4. Isosorbide. 5. Synthroid. 6. Torsemide. 7. Flonase. 8. Diltiazem. 9. Cozaar. 10. Simvastatin. 11. P.r.n. Combivent. ALLERGIES ASPIRIN. FAMILY HISTORY Noncontributory. SOCIAL HISTORY A long heavy smoking history, has not smoked for years. REVIEW OF SYSTEMS A 12-point review of systems as per HPI and past history otherwise negative. PHYSICAL EXAMINATION VITAL SIGNS: On exam temperature 98 degrees Fahrenheit, pulse 70, respiration 20, blood pressure 120/70, oxygen saturation 98% on 2 liters oxygen nasal cannula. HEENT: Exam unremarkable. Eyes without icterus. NECK: Without adenopathy. Thyroid enlargement. Central trachea. CHEST: Scattered rhonchi bilaterally. CARDIOVASCULAR: Cardiac exam irregularity noted. ABDOMEN: Lax, bowel sounds audible. EXTREMITIES: No clubbing, cyanosis or edema. SKIN: Normal. No lymphadenopathy. LABORATORY DATA White count 5.8, hemoglobin 10, hematocrit 34, platelets at 250,000, sodium 139, potassium 4.2, BUN 19, creatinine 1.0. IMAGING STUDIES Chest x-ray 2 cm left upper lobe lung nodule seems enlarged from previous. Changes suggestive of underlying COPD. IMPRESSION 1. COPD exacerbation. 2. Acute on chronic respiratory failure. 3. Chronic atrial fibrillation. 4. History of congestive heart failure. 5. Hypothyroidism on replacement therapy. 6. Coronary artery disease. 7. Hyperlipidemia. PLAN The patient will be maintained on oxygen therapy as needed. She has been given BiPap therapy for respiratory distress. However, oxygenation adequate at present at 2 liters oxygen via nasal cannula. We will continue bronchodilator therapy, oxygen therapy, antibiotic therapy as well as steroid therapy. Follow the patient's course along with you and depending on progress proceed further. I do thank you for asking to partake in Mrs. Baxter's care. Elizabeth Johnson MD WWW/EO /10:24 PM /10:53 PM
[2017-02-18] MEDS ORDERED: CHLORHEXIDINE GLUCONATE 2 % 1 PACK (2 CLOTHS)(extra cloths) TOPICAL PRN (23:15)
[2017-02-19] VITALS (10 sets, daily range): BP systolic 105–150; BP diastolic 62–78; PULSE 70–122; RESP 16–36; TEMP 97.5–98.6; O2SAT 95–99
[2017-02-19] MEDS: methylPREDNISolone SOD SUCC 40 MG/1 ML VIAL IV PUSH SCH ×4 (00:12→18:19)
[2017-02-19] MEDS: RESP: ALBUTEROL 2.5 MG/IPRATROPIUM 0.5 MG NEB (SCH) INH ×4 (03:28→19:17)
[2017-02-19] MEDS: CHLORHEXIDINE GLUCONATE 2 % 1 PACK (2 CLOTHS)(taper/protocol) TOPICAL SCH (04:00)
[2017-02-19 06:05] LABS: BLOOD GAS BASE EXCESS 6.3 mmol/L (-2-2); BLOOD GAS CARBOXYHEMOGLOBIN 1.1 % (0-4); BLOOD GAS HCO3 32 mmol/L (22-26); BLOOD GAS METHEMOGLOBIN 1.4 % (0-2); BLOOD GAS O2 HGB SATURATION 96 % (90-100); BLOOD GAS OXYGEN CONTENT 14.4 Vol % (12.0-20.0); BLOOD GAS PCO2 57 mmHg (38-42); BLOOD GAS PO2 116 mmHg (61-120); BLOOD GAS TOTAL HGB 10.5 G/DL (12.0-16.0)
[2017-02-19 06:07] LABS: CRITICAL VALUE YES; DRAW SITE RT RADIAL; LITER FLOW 3 L/M; NUMBER OF ARTERIAL PUNCTURES 1; OXYGEN DEVICE NASAL CANNULA; STAT NO; ULNAR PULSE Y
[2017-02-19 06:31] LABS: AUTOMATED NEUTROPHIL # 3.7 TH/MM3 (1.8-7.7); BASOPHIL % 0.3 % (0.0-2.0); EOSINOPHIL % 0.1 % (0.0-4.0); HEMATOCRIT 33.4 % (35.0-46.0); LYMPH % 8.2 % (9.0-44.0); LYMPHOCYTE # 0.3 TH/MM3 (1.0-4.8); MEAN CELL VOLUME 90.5 FL (80.0-100.0); MEAN CORPUSCULAR HEMOGLOBIN 28.3 PG (27.0-34.0); MEAN CORPUSCULAR HGB CONC 31.3 % (32.0-36.0); MONO % 0.6 % (0.0-8.0); NEUT % 90.8 % (16.0-70.0); PLATELET COUNT 224 TH/MM3 (150-450); RED BLOOD COUNT 3.69 MIL/MM3 (4.00-5.30); RED CELL DISTRIBUTION WIDTH 16.4 % (11.6-17.2)
[2017-02-19 06:39] LABS: POTASSIUM 4.2 MEQ/L (3.5-5.1)
[2017-02-19 06:40] LABS: INTERNATIONAL NORMALIZED RATIO 2.4 RATIO; PROTHROMBIN TIME - PATIENT 27.3 SEC (9.8-11.6)
[2017-02-19 06:42] LABS: HEMO FLAGS AUTO DIFF
[2017-02-19 06:45] LABS: BICARBONATE 32.5 MEQ/L (21.0-32.0)
[2017-02-19] MEDS: FUROSEMIDE 20 MG/2 ML VIAL IV PUSH SCH ×2 (08:42→18:19)
[2017-02-19] MEDS: POTASSIUM CHLORIDE 10 MEQ CONTROLLED RELEASE TAB PO SCH (08:43)
[2017-02-19] MEDS: ISOSORBIDE MONONITRATE 60 MG TAB PO SCH (08:43)
[2017-02-19] MEDS: LEVOTHYROXINE SODIUM 112 MCG TAB PO SCH (08:43)
[2017-02-19] MEDS: LEVOTHYROXINE SODIUM 25 MCG TAB PO SCH (08:43)
[2017-02-19] MEDS: DILTIAZEM-CD 120 MG CAP ER PO SCH (08:43)
[2017-02-19] MEDS: LOSARTAN 25 MG TAB PO SCH (08:47)
[2017-02-19] MEDS: SODIUM CHLORIDE 0.9% FLUSH 10 ML FLUSH IV FLUSH SCH ×2 (08:47→19:59)
[2017-02-19 09:51] LABS: OVALOCYTES 1+ (NORMAL); SCAN/DIFF AUTO DIFF CONFIRMED
--- NOTE | 2017-02-19 13:19 | HHI.PR ---
Subjective Remarks Patient seen and evaluated today in follow-up for COPD exacerbation, doing better. Respiratory rate improved and oxygenation requirement improved Objective Vitals Vital Signs Date Time Temp Pulse Resp B/P (MAP) Pulse Ox O2 Delivery O2 Flow Rate FiO2 02/19/17 12:00 98.1 82 21 137/62 (87) 98 02/19/17 09:00 114 18 105/78 (87) 98 02/19/17 08:44 96 Nasal Cannula 2.00 02/19/17 08:00 122 36 97 02/19/17 08:00 98.3 70 19 150/70 (96) 99 02/19/17 04:00 97.5 70 19 150/70 (96) 99 02/19/17 00:00 97.5 71 16 126/69 (88) 95 02/18/17 21:45 97.6 75 27 134/74 (94) 99 02/18/17 21:15 96 Nasal Cannula 2.00 02/18/17 20:00 95.4 80 20 147/81 (103) 99 02/18/17 17:30 98.0 74 20 126/68 (87) 97 02/18/17 17:14 02/18/17 15:58 72 20 113/57 (75) 99 Nasal Cannula 2.00 02/18/17 14:32 22 97 Nasal Cannula 2.00 02/18/17 14:27 97 Nasal Cannula 2.00 02/18/17 14:19 97 Nasal Cannula 2.00 02/18/17 14:19 97 Nasal Cannula 2.00 02/18/17 14:15 98.5 79 26 145/80 (101) 97 I/O 02/18/17 02/18/17 02/18/17 02/19/17 02/19/17 02/19/17 07:00 15:00 23:00 07:00 15:00 23:00 Intake Total 250 ml Output Total 400 ml 300 ml Balance -150 ml -300 ml Intake IV Total 250 ml Output Urine Total 400 ml 300 ml # Voids 1 Result Diagram: 02/19/17 0544 02/19/17 0544 Imaging Last Impressions Chest X-Ray 02/18/17 2763 Signed Impressions: Service Date/Time: Saturday, February 18, 2017 14:44 - CONCLUSION: 1. 2.1 cm left upper lobe pulmonary nodule appears slightly larger from the prior study. This could be technical in nature. 2. COPD. 3. No acute infiltrate. Sherif Mondragon Jr., MD Objective Remarks Left eye ecchymoses GENERAL: This is a well-nourished, well-developed patient, in no apparent distress. CARDIOVASCULAR: Regular rate and rhythm without murmurs, gallops, or rubs. RESPIRATORY: Clear to auscultation. Breath sounds equal bilaterally. No wheezes , rales, or rhonchi. GASTROINTESTINAL: Abdomen soft, non-tender, nondistended. Normal active bowel sounds MUSCULOSKELETAL: Extremities without clubbing, cyanosis, or edema. NEURO: Alert & Oriented x4 to person, place, time, situation. Moves all ext x4 A/P Problem List: (1) COPD exacerbation ICD Code: J44.1 - Chronic obstructive pulmonary disease with (acute) exacerbation Status: Acute Plan: Continue IV steroids, IV antibiotics and bronchodilators by nebulizer (2) Chronic atrial fibrillation ICD Code: I48.2 - Chronic atrial fibrillation Status: Chronic Plan: Continue home Coumadin. Follow INR, today 2.4 Continue Cardizem (3) Lower extremity edema ICD Code: R60.0 - Localized edema Plan: Improved after Lasix, follow electrolytes (4) Hypothyroidism ICD Code: E03.9 - Hypothyroidism Status: Chronic Plan: Continue home Levothyroxine. (5) Dyslipidemia ICD Code: E78.5 - Hyperlipidemia, unspecified Plan: Continue home statin. (6) CAD (coronary artery disease) ICD Code: I25.10 - CAD (coronary artery disease) Status: Chronic Plan: Continue home Imdur, Cardizem and Cozaar. Continue to monitor BP trend. Continue cardiac telemetry to rule out arrhythmia. Assessment and Plan DVT Prophylaxis: Coumadin with appropriate INR. Discharge Planning If stable likely discharge home in a.m. Transferred to [facility] MD Feb 19, 2017 13:19
[2017-02-19] MEDS: AZITHROMYCIN INJ 500 MG in SODIUM CHLOR 0.9% 250 ML INJ 250 ML IV SCH (16:43)
[2017-02-19] MEDS: WARFARIN SOD 5 MG TAB PO SCH (16:43)
--- NOTE | 2017-02-19 18:07 | HHI.PR ---
Subjective Remarks ALERT NO SOB AT REST ON O2 VIA N/C Objective Vital Signs Date Time Temp Pulse Resp B/P (MAP) Pulse Ox O2 Delivery O2 Flow Rate FiO2 02/19/17 16:00 98.6 88 21 114/64 (81) 96 02/19/17 12:00 98.1 82 21 137/62 (87) 98 02/19/17 09:00 114 18 105/78 (87) 98 02/19/17 08:44 96 Nasal Cannula 2.00 02/19/17 08:00 122 36 97 02/19/17 08:00 98.3 70 19 150/70 (96) 99 02/19/17 04:00 97.5 70 19 150/70 (96) 99 02/19/17 00:00 97.5 71 16 126/69 (88) 95 02/18/17 21:45 97.6 75 27 134/74 (94) 99 02/18/17 21:15 96 Nasal Cannula 2.00 02/18/17 20:00 95.4 80 20 147/81 (103) 99 I/O 02/18/17 02/18/17 02/18/17 02/19/17 02/19/17 02/19/17 07:00 15:00 23:00 07:00 15:00 23:00 Intake Total 250 ml Output Total 400 ml 300 ml Balance -150 ml -300 ml Intake IV Total 250 ml Output Urine Total 400 ml 300 ml # Voids 1 Result Diagram: 02/19/17 0544 02/19/17 0544 Objective Remarks GENERAL: SKIN: Warm and dry. HEAD: Atraumatic. Normocephalic. EYES: Pupils equal and round. No scleral icterus. No injection or drainage. ENT: No nasal bleeding or discharge. Mucous membranes pink and moist. NECK: Trachea midline. No JVD. CARDIOVASCULAR: Regular rate and rhythm. RESPIRATORY: No accessory muscle use. Clear to auscultation. Breath sounds equal bilaterally. GASTROINTESTINAL: Abdomen soft, non-tender, nondistended. Hepatic and splenic margins not palpable. MUSCULOSKELETAL: Extremities without clubbing, cyanosis, or edema. No obvious deformities. NEUROLOGICAL: Awake and alert. No obvious cranial nerve deficits. Motor grossly within normal limits. Five out of 5 muscle strength in the arms and legs. Normal speech. PSYCHIATRIC: Appropriate mood and affect; insight and judgment normal. Assessment and Plan Assessment and Plan RESPIRATORY FAILURE COPD EXACERBATION CHF CAD PLAN O2 NEEDED BRONCHODILATOR THERAPY INCREASE ACTIVITY Elizabeth Johnson MD Feb 19, 2017 18:07
[2017-02-19] MEDS: PRAVASTATIN SOD 40 MG TAB PO SCH (19:59)
[2017-02-20] VITALS (8 sets, daily range): BP systolic 95–142; BP diastolic 68–85; PULSE 75–96; RESP 16–20; TEMP 96–97.8; O2SAT 94–100
[2017-02-20] MEDS: methylPREDNISolone SOD SUCC 40 MG/1 ML VIAL IV PUSH SCH ×2 (00:11→05:39)
[2017-02-20] MEDS: RESP: ALBUTEROL 2.5 MG/IPRATROPIUM 0.5 MG NEB (SCH) INH ×4 (03:22→20:47)
[2017-02-20] MEDS: CHLORHEXIDINE GLUCONATE 2 % 1 PACK (2 CLOTHS)(taper/protocol) TOPICAL SCH (04:00)
--- NOTE | 2017-02-20 07:58 | HHI.PR ---
Subjective Remarks Patient seen today in follow-up for COPD exacerbation, feels stronger. She has no complaints. She is at baseline with her home O2 requirement. She has not been out of the bed much and still feels weak Objective Vitals Vital Signs Date Time Temp Pulse Resp B/P (MAP) Pulse Ox O2 Delivery O2 Flow Rate FiO2 02/20/17 04:00 96.0 77 16 117/71 (86) 95 02/20/17 00:00 96.8 75 18 125/81 (96) 97 02/19/17 20:00 98.2 87 18 126/75 (92) 97 02/19/17 19:17 98 Nasal Cannula 2.00 02/19/17 18:18 98.1 93 20 141/65 (90) 95 02/19/17 16:00 98.6 88 21 114/64 (81) 96 02/19/17 12:00 98.1 82 21 137/62 (87) 98 02/19/17 09:00 114 18 105/78 (87) 98 02/19/17 08:44 96 Nasal Cannula 2.00 02/19/17 08:00 122 36 97 02/19/17 08:00 98.3 70 19 150/70 (96) 99 I/O 02/19/17 02/19/17 02/19/17 02/20/17 02/20/17 02/20/17 07:00 15:00 23:00 07:00 15:00 23:00 Intake Total 360 ml Output Total 300 ml Balance -300 ml 360 ml Intake Oral 360 ml Output Urine Total 300 ml # Voids 1 # Bowel Movements 0 Result Diagram: 02/19/17 0544 02/19/17 0544 Objective Remarks Left eye ecchymoses improved GENERAL: This is a well-nourished, well-developed patient, in no apparent distress. CARDIOVASCULAR: Regular rate and rhythm without murmurs, gallops, or rubs. RESPIRATORY: Clear to auscultation. Breath sounds equal bilaterally. No wheezes , rales, or rhonchi. GASTROINTESTINAL: Abdomen soft, non-tender, nondistended. Normal active bowel sounds MUSCULOSKELETAL: Extremities without clubbing, cyanosis, or edema. NEURO: Alert & Oriented x4 to person, place, time, situation. Moves all ext x4 A/P Problem List: (1) COPD exacerbation ICD Code: J44.1 - Chronic obstructive pulmonary disease with (acute) exacerbation Status: Acute Plan: Continue po steroids, po antibiotics and bronchodilators by nebulizer Continue pulmonary toilet out of bed (2) Chronic atrial fibrillation ICD Code: I48.2 - Chronic atrial fibrillation Status: Chronic Plan: Continue home Coumadin. Follow INR Continue Cardizem (3) Lower extremity edema ICD Code: R60.0 - Localized edema Plan: Improved after Lasix, follow electrolytes dc iv lasix and resume home meds (4) Hypothyroidism ICD Code: E03.9 - Hypothyroidism Status: Chronic Plan: Continue home Levothyroxine. (5) Dyslipidemia ICD Code: E78.5 - Hyperlipidemia, unspecified Plan: Continue home statin. (6) CAD (coronary artery disease) ICD Code: I25.10 - CAD (coronary artery disease) Status: Chronic Plan: Continue home Imdur, Cardizem and Cozaar. Continue to monitor BP trend. Continue cardiac telemetry to rule out arrhythmia. Assessment and Plan DVT Prophylaxis: Coumadin with appropriate INR. Discharge Planning If stable likely discharge home in a.m. Transferred to [facility] Unique Davidson MD Feb 20, 2017 07:58
[2017-02-20] MEDS: LEVOTHYROXINE SODIUM 112 MCG TAB PO SCH (09:00)
[2017-02-20] MEDS: POTASSIUM CHLORIDE 10 MEQ CONTROLLED RELEASE TAB PO SCH (09:06)
[2017-02-20] MEDS: ISOSORBIDE MONONITRATE 60 MG TAB PO SCH (09:06)
[2017-02-20] MEDS: predniSONE 20 MG TAB PO SCH ×2 (09:06→20:34)
[2017-02-20] MEDS: TORSEMIDE 20 MG TAB PO SCH (09:06)
[2017-02-20] MEDS: LEVOTHYROXINE SODIUM 25 MCG TAB PO SCH (09:06)
[2017-02-20] MEDS: LOSARTAN 25 MG TAB PO SCH (09:07)
[2017-02-20] MEDS: DILTIAZEM-CD 120 MG CAP ER PO SCH (09:07)
[2017-02-20] MEDS: SODIUM CHLORIDE 0.9% FLUSH 10 ML FLUSH IV FLUSH SCH ×2 (09:07→20:34)
[2017-02-20] MEDS: AZITHROMYCIN 250 MG TAB PO SCH (09:08)
--- NOTE | 2017-02-20 10:06 | HHI.FF ---
Face to Face Verification Diagnosis: (1) COPD (chronic obstructive pulmonary disease) Physical Therapy Order: Evaluate and Treat, Improve ambulation Occupational Therapy Order: Evaluate and Treat, Gross motor coordination Home Health Nursing Order: Medical education I have seen patient Inna Baxter on 02/20/17. My clinical findings support the need for the requested home health care services because: Patient has SOB I certify that my clinical findings support that this patient is homebound because: Hx COPD- exertion dyspnea/weakness Unique Davidson MD Feb 20, 2017 10:06
[2017-02-20] MEDS: WARFARIN SOD 5 MG TAB PO SCH (15:48)
--- NOTE | 2017-02-20 17:25 | HHI.PR ---
Subjective Remarks ALERT NO SOB AT REST ON O2 VIA N/C Objective Vital Signs Date Time Temp Pulse Resp B/P (MAP) Pulse Ox O2 Delivery O2 Flow Rate FiO2 02/20/17 16:00 97.6 75 16 117/70 (86) 96 02/20/17 12:00 97.6 80 16 95/72 (80) 99 02/20/17 10:17 100 2.00 02/20/17 08:00 97.3 88 16 142/85 (104) 98 02/20/17 04:00 96.0 77 16 117/71 (86) 95 02/20/17 00:00 96.8 75 18 125/81 (96) 97 02/19/17 20:00 98.2 87 18 126/75 (92) 97 02/19/17 19:17 98 Nasal Cannula 2.00 02/19/17 18:18 98.1 93 20 141/65 (90) 95 I/O 02/19/17 02/19/17 02/19/17 02/20/17 02/20/17 02/20/17 07:00 15:00 23:00 07:00 15:00 23:00 Intake Total 610 ml Output Total 300 ml Balance -300 ml 610 ml Intake Oral 360 ml IV Total 250 ml Output Urine Total 300 ml # Voids 1 # Bowel Movements 0 Result Diagram: 02/19/1744 02/19/17543 Objective Remarks GENERAL: SKIN: Warm and dry. HEAD: Atraumatic. Normocephalic. EYES: Pupils equal and round. No scleral icterus. No injection or drainage. ENT: No nasal bleeding or discharge. Mucous membranes pink and moist. NECK: Trachea midline. No JVD. CARDIOVASCULAR: Regular rate and rhythm. RESPIRATORY: No accessory muscle use. Clear to auscultation. Breath sounds equal bilaterally. GASTROINTESTINAL: Abdomen soft, non-tender, nondistended. Hepatic and splenic margins not palpable. MUSCULOSKELETAL: Extremities without clubbing, cyanosis, or edema. No obvious deformities. NEUROLOGICAL: Awake and alert. No obvious cranial nerve deficits. Motor grossly within normal limits. Five out of 5 muscle strength in the arms and legs. Normal speech. PSYCHIATRIC: Appropriate mood and affect; insight and judgment normal. Assessment and Plan Assessment and Plan RESPIRATORY FAILURE COPD EXACERBATION CHF CAD PLAN O2 NEEDED BRONCHODILATOR THERAPY INCREASE ACTIVITY Elizabeth Johnson MD 3, 2017 17:25
[2017-02-20] MEDS: PRAVASTATIN SOD 40 MG TAB PO SCH (20:34)
--- NOTE | 2017-02-20 23:27 | EKG ---
Date Performed: 02/18/2017 Time Performed: 14:18:06 PTAGE: 86 years EKG: Sinus rhythm NORMAL ECG PREVIOUS TRACING : 01/04/2017 11.36 Compared to prior tracing no significant change DOCTOR: Oseas Hamm Interpretating Date/Time 02/20/2017 23:26:41
[2017-02-21] VITALS: BP 113/64; PULSE 76; RESP 20; TEMP 96
[2017-02-21] MEDS: RESP: ALBUTEROL 2.5 MG/IPRATROPIUM 0.5 MG NEB (SCH) INH ×2 (03:32→09:33)
[2017-02-21] MEDS: CHLORHEXIDINE GLUCONATE 2 % 1 PACK (2 CLOTHS)(taper/protocol) TOPICAL SCH (04:00)
[2017-02-21 08:00] VITALS: BP 137/81; PULSE 82; RESP 18; TEMP 96.5; O2SAT 98
[2017-02-21] MEDS: TORSEMIDE 20 MG TAB PO SCH (08:07)
[2017-02-21] MEDS: DILTIAZEM-CD 120 MG CAP ER PO SCH (08:07)
[2017-02-21] MEDS: LEVOTHYROXINE SODIUM 25 MCG TAB PO SCH (08:07)
[2017-02-21] MEDS: predniSONE 20 MG TAB PO SCH (08:07)
[2017-02-21] MEDS: ISOSORBIDE MONONITRATE 60 MG TAB PO SCH (08:07)
[2017-02-21] MEDS: AZITHROMYCIN 250 MG TAB PO SCH (08:07)
[2017-02-21] MEDS: LEVOTHYROXINE SODIUM 112 MCG TAB PO SCH (08:08)
[2017-02-21] MEDS: POTASSIUM CHLORIDE 10 MEQ CONTROLLED RELEASE TAB PO SCH (08:08)
[2017-02-21] MEDS: SODIUM CHLORIDE 0.9% FLUSH 10 ML FLUSH IV FLUSH SCH (08:08)
[2017-02-21] MEDS: LOSARTAN 25 MG TAB PO SCH (08:08)
[2017-02-21 09:34] VITALS: O2SAT 98
[2017-02-21] MEDS ORDERED: PRED20 PO (10:28)
[2017-02-21] MEDS ORDERED: AZIT250T3 PO (10:28)
--- NOTE | 2017-02-21 12:45 | HHI.DS ---
cc: Jose Rafael Granado MD Discharge Summary Admission Date Feb 18, 2017 at 16:04 Discharge Date: Feb 21, 2017 Admitting Diagnosis Copd Exacerbation, Hypercapnea. (1) COPD exacerbation ICD Code: J44.1 - Chronic obstructive pulmonary disease with (acute) exacerbation Status: Acute (2) Chronic atrial fibrillation ICD Code: I48.2 - Chronic atrial fibrillation Status: Chronic (3) Lower extremity edema ICD Code: R60.0 - Localized edema (4) Hypothyroidism ICD Code: E03.9 - Hypothyroidism Status: Chronic (5) Dyslipidemia ICD Code: E78.5 - Hyperlipidemia, unspecified (6) CAD (coronary artery disease) ICD Code: I25.10 - CAD (coronary artery disease) Status: Chronic Procedures none Brief History - From Admission Ms. Baxter is a 86-year-old female patient with a known medical history of CHF and COPD, atrial fibrillation on Coumadin, HTN, and dyslipidemia who presented to the ED with complaints of worsening bilateral lower extremity pitting edema. Patient states that she has noticed increasing swelling in bilateral lower extremities x 3 days, does complain of chronic shortness of breath due to her COPD, requires 2 L NC at home. Denies any recent fever, chills , cough, ab pain, n/v/d os dysuria. Denies any changes in her medications. Denies any recent antibiotic use or steroid use. PCP is Dr. Granado, last seen a couple month ago. Event Representative is Dr. Cavazos, has not seen in many months. Patient follows with Dr. Carter for pulmonology. CBC/BMP: 02/19/17 0544 02/19/17 0544 Significant Findings Laboratory Tests Test 02/18/17 14:30 02/19/17 05:44 02/19/17 05:55 Red Blood Count 3.72 MIL/MM3 (4.00-5.30) 3.69 MIL/MM3 (4.00-5.30) Hemoglobin 10.9 GM/DL (11.6-15.3) 10.5 GM/DL (11.6-15.3) Hematocrit 34.2 % (35.0-46.0) 33.4 % (35.0-46.0) Neutrophils (%) (Auto) 77.2 % (16.0-70.0) 90.8 % (16.0-70.0) Lymphocytes # (Auto) 0.9 TH/MM3 (1.0-4.8) 0.3 TH/MM3 (1.0-4.8) Prothrombin Time 26.8 SEC (9.8-11.6) 27.3 SEC (9.8-11.6) Activated Partial Thromboplast Time 36.9 SEC (24.3-30.1) Venous Blood pH 7.31 (7.360-7.400) Venous Blood Partial Pressure CO2 70 mmHg (44-48) Venous Blood Partial Pressure O2 28 mmHg (35-40) Venous Blood HCO3 34 mmol/L (22-26) Venous Blood Oxygen Saturation 44 % (70-76) Venous Blood Oxygen Content 6.8 Vol % (9.0-17.0) Venous Blood Base Excess 8.0 mmol/L (-2-2) Blood Urea Nitrogen 19 MG/DL (7-18) 21 MG/DL (7-18) Total Protein 6.2 GM/DL (6.4-8.2) Albumin 3.3 GM/DL (3.4-5.0) Aspartate Amino Transf (AST/SGOT) 11 U/L (15-37) Carbon Dioxide Level 34.2 MEQ/L (21.0-32.0) 32.5 MEQ/L (21.0-32.0) Anion Gap 3 MEQ/L (5-15) Estimat Glomerular Filtration Rate 52 ML/MIN (>89) 52 ML/MIN (>89) Troponin I LESS THAN 0.02 NG/ML Mean Corpuscular Hemoglobin Concent 31.3 % (32.0-36.0) Lymphocytes (%) (Auto) 8.2 % (9.0-44.0) Ovalocytes 1+ (NORMAL) Random Glucose 152 MG/DL (74-106) Blood Gas HCO3 32 mmol/L (22-26) Blood Gas Base Excess 6.3 mmol/L (-2-2) Arterial Blood pH 7.36 (7.380-7.420) Arterial Blood Partial Pressure CO2 57 mmHg (38-42) Blood Gas Hemoglobin 10.5 G/DL (12.0-16.0) Imaging Last Impressions Chest X-Ray 02/18/17 1413 Signed Impressions: Service Date/Time: Saturday, February 18, 2017 14:44 - CONCLUSION: 1. 2.1 cm left upper lobe pulmonary nodule appears slightly larger from the prior study. This could be technical in nature. 2. COPD. 3. No acute infiltrate. Sherif Mondragon Jr., MD PE at Discharge Left eye ecchymoses improved GENERAL: This is a well-nourished, well-developed patient, in no apparent distress. CARDIOVASCULAR: Regular rate and rhythm without murmurs, gallops, or rubs. RESPIRATORY: Clear to auscultation. Breath sounds equal bilaterally. No wheezes , rales, or rhonchi. GASTROINTESTINAL: Abdomen soft, non-tender, nondistended. Normal active bowel sounds MUSCULOSKELETAL: Extremities without clubbing, cyanosis, or edema. NEURO: Alert & Oriented x4 to person, place, time, situation. Moves all ext x4 Pt update on day of discharge Patient seen and evaluated for discharge planning. Rest or status is greatly improved and at baseline. She follows with Dr. carter and has an appointment soon. Discharge plans discussed with patient and nursing team Hospital Course This patient's 86-year-old female was admitted with acute onset shortness of breath and COPD exacerbation. She required IV steroids, nebulized bronchodilators and titrations in her home oxygen. She did better and returned to her baseline function. She was discharged home Pt Condition on Discharge: Good Discharge Disposition: Discharge Home Discharge Time: <= 30 minutes Discharge Instructions DIET: Follow Instructions for: As Tolerated, No Restrictions Activities you can perform: Regular-No Restrictions New Medications: Azithromycin (Azithromycin) 250 Mg Tab 250 MG PO DAILY for Infection, #5 TAB Prednisone (Prednisone) 20 Mg Tab 20 MG PO BID for Inflammation for 10 Days, #20 TAB 20 mg bid x 3 days then 20mg daily for 3 dyas then 1/2 tab daily x 3 days Continued Medications: Albuterol Neb (Albuterol Neb) 2.5 Mg/3 Ml Neb 2.5 MG INH Q2HR NEB PRN for SHORTNESS OF BREATH, #90 NEBULE Budesonide Neb (Pulmicort Respules) 0.25 Mg/2 Ml Neb 0.25 MG NEB Q12HR NEB for Breathing Treatment, #60 NEBULE 0 Refills Diltiazem CD 24 HR (Diltiazem CD 24 HR) 120 Mg Caper 120 MG PO DAILY, #30 CAP 0 Refills Fluticasone Nasal [place] (Flonase Nasal [place]) 50 Mcg/Act [place] 1 SPRAY EACH NARE BID PRN for ALLERGIES, #1 BOTTLE 0 Refills Ipratropium-Albuterol Inh (Combivent Respimat Inh) 20-100 Long Term/Act Aero 1 PUFF INH QID PRN for SHORTNESS OF BREATH, #1 INHALER 0 Refills Isosorbide Mononitrate ER (Isosorbide Mononitrate ER) 60 Mg Tab 60 MG PO DAILY for Prevent Chest Pain, #30 TAB 0 Refills Levothyroxine (Synthroid) 137 Mcg Tab 137 MCG PO DAILY for Thyroid, #30 TAB 0 Refills Losartan (Cozaar) 25 Mg Tab 25 MG PO DAILY for Blood Pressure Management, #30 TAB 0 Refills Potassium Chloride Microencaps (Klor-Con M15) 15 Meq Tab 15 MEQ PO DAILY for Electrolyte Replacement, #30 TAB 0 Refills Simvastatin (Simvastatin) 20 Mg Tab 20 MG PO HS for Cholesterol Management, #30 TAB 0 Refills Torsemide (Torsemide) 20 Mg Tab 20 MG PO DAILY, #30 TAB 0 Refills Warfarin (Warfarin) 6 Mg Tab 5 MG PO DAILY for Blood Clot Prevention, #30 TAB 0 Refills Unique Davidson MD Feb 21, 2017 12:45
== END 2017-02-21 11:32 | disposition home or self-care (01) ==
LOC: PHED 14:08 → PHEDA 16:04 → PH3B 17:25 → PHICU 21:40 → PH3B 02-19 18:08
PROVIDERS: ADMIT Hospitalist; ATTEND Hospitalist
DX: J44.1 Chronic obstructive pulmonary disease with (acute) exacerbation (principal); J96.22 Acute and chronic respiratory failure with hypercapnia; I48.2 Chronic atrial fibrillation; R60.0 Localized edema; D64.9 Anemia, unspecified; E03.9 Hypothyroidism, unspecified; R91.1 Solitary pulmonary nodule; E78.00 Pure hypercholesterolemia, unspecified; I11.0 Hypertensive heart disease with heart failure; I50.9 Heart failure, unspecified; I25.10 Atherosclerotic heart disease of native coronary artery without angina pectoris; K21.9 Gastro-esophageal reflux disease without esophagitis; Z79.899 Other long term (current) drug therapy; Z79.01 Long term (current) use of anticoagulants; Z99.81 Dependence on supplemental oxygen; Z87.891 Personal history of nicotine dependence; Z96.653 Presence of artificial knee joint, bilateral; Z96.643 Presence of artificial hip joint, bilateral
CPT/HCPCS: 36600; 71010; 80048; 80053; 82550; 82805; 83735; 83880; 84484; 85025; 85610; 85730; 93005; 94640; 94664; 96365; 96366; 96375; 96376; 99285; G0378; J0456; J1940; J2920; J2930; J7050; J7512

== ENCOUNTER 2017-03-17 19:55 | Observation (INO) | payer MEDICARE, OTHER ==
[~2017-03-17] VITALS: Ht 157.5 cm; Wt 73.2 kg
[~2017-03-17 19:55] MED LIST changes: +AZIT250T3 PO; -BETH25TA2 PO; -CALCTAB80 PO; -DOXY100T PO; -NEXI40CA PO; +PRED20 PO
[2017-03-17] MEDS ORDERED: SODIUM CHLORIDE 0.9% FLUSH 10 ML FLUSH IVF PRN (20:00)
[2017-03-17] MEDS ORDERED: methylPREDNISolone SOD SUCC 125 MG/2 ML VIAL IV PUSH ONE (20:00)
--- NOTE | 2017-03-17 20:02 | PD ---
HPI Chief Complaint: shortness of breath Time Seen by Provider: 20:00 Travel History International Travel<30 days: No Contact w/Intl Traveler<30days: No Traveled to known affect area: No History of Present Illness HPI 86-year-old female with history of COPD, A. estrellita, on 2 L nasal cannula home O2, followed by bioinformatics analyst Dr. Carter, here with her son for evaluation of shortness of breath. Symptoms started yesterday evening and progressed throughout the day today. Shortness of breath is at rest, worse with exertion. The patient tried taking a dose of prednisone and breathing treatments at home without improvement in symptoms. She has not had a fever. She has a cough productive of greenish sputum. She is also complaining of chest tightness /heaviness which is constant. PFSH Past Medical History Hx Anticoagulant Therapy: Yes (coumadin) Anemia: Yes Arthritis: No Asthma: No Atrial Fibrillation: Yes Autoimmune Disease: No Blood Disorders: No Anxiety: No Depression: No Heart Rhythm Problems: No Cancer: No Cardiovascular Problems: Yes High Cholesterol: Yes Chemotherapy: No Chest Pain: No Congestive Heart Failure: Yes COPD: Yes Cerebrovascular Accident: No Diabetes: No Diminished Hearing: No Endocrine: Yes Gastrointestinal Disorders: Yes (HX OF ESOPHAGEAL STRICTURE/DILATION) GERD: Yes Glaucoma: No Genitourinary: No Headaches: Yes Hepatitis: No Hiatal Hernia: No Hypertension: Yes Immune Disorder: No Kidney Stones: No Musculoskeletal: No Neurologic: No Psychiatric: No Reproductive: No Respiratory: Yes Migraines: No Myocardial Infarction: No Radiation Therapy: No Renal Failure: No Seizures: No Sleep Apnea: No Thyroid Disease: Yes Ulcer: No Past Surgical History Abdominal Surgery: Yes AICD: No Appendectomy: Yes Arteriovenous Shunt: No Cardiac Surgery: No Cholecystectomy: Yes Ear Surgery: No Endocrine Surgery: No Eye Surgery: No Genitourinary Surgery: No Gynecologic Surgery: Yes Hysterectomy: Yes Insulin Pump: No Joint Replacement: Yes Oral Surgery: No Pacemaker: No Thoracic Surgery: No Other Surgery: Yes Social History Alcohol Use: Yes (RARE) Tobacco Use: No (quit 26 years ago) Substance Use: No Allergies-Medications (Allergen,Severity, Reaction): Coded Allergies: aspirin (Unverified Allergy, Severe, Rash, 12/06/16) Reported Meds & Prescriptions Reported Meds & Active Scripts Active Albuterol Neb (Albuterol Sulfate) 2.5 Mg/3 Ml Neb 2.5 Mg INH Q2HR NEB PRN Reported Warfarin 6 Mg Tab 5 Mg PO DAILY Pulmicort Respules (Budesonide) 0.25 Mg/2 Ml Neb 0.25 Mg NEB Q12HR NEB Isosorbide Mononitrate ER (Isosorbide Mononitrate) 60 Mg Tab 60 Mg PO DAILY Torsemide 20 Mg Tab 20 Mg PO DAILY Synthroid (Levothyroxine Sodium) 137 Mcg Tab 137 Mcg PO DAILY Flonase Nasal [place] (Fluticasone Nasal [place]) 50 Mcg/Act [place] 1 [place] EACH NARE BID PRN Diltiazem CD 24 HR 120 Mg Caper 120 Mg PO DAILY Cozaar (Losartan Potassium) 25 Mg Tab 25 Mg PO DAILY Combivent Respimat Inh (Ipratropium-Albuterol Inh) 20-100 Fci/Act Aero 1 Puff INH QID PRN Simvastatin 20 Mg Tab 20 Mg PO HS Review of Systems Except as stated in HPI: all other systems reviewed are Neg Physical Exam Narrative GENERAL: Well-developed, well-nourished, moderate respiratory distress, speaking a few words at a time. SKIN: Focused skin assessment warm/dry. HEAD: Atraumatic. Normocephalic. EYES: Pupils equal and round. No scleral icterus. No injection or drainage. ENT: Mucous membranes pink and moist. NECK: Trachea midline. No JVD. CARDIOVASCULAR: Regular rate and rhythm. No murmur appreciated. RESPIRATORY: Moderate respiratory distress, speaking a few words at a time, intercostal and supraclavicular retractions, poor air movement bilaterally, inspiratory and expiratory wheezes bilaterally, no rales or rhonchi. GASTROINTESTINAL: Abdomen soft, non-tender, nondistended. MUSCULOSKELETAL: No obvious deformities. No clubbing. No cyanosis. Moderate BL LE edema. NEUROLOGICAL: Awake and alert. No obvious cranial nerve deficits. Motor grossly within normal limits. Normal speech. PSYCHIATRIC: Appropriate mood and affect; insight and judgment normal. Data Data Last Documented VS Vital Signs Date Time Temp Pulse Resp B/P (MAP) Pulse Ox O2 Delivery O2 Flow Rate FiO2 03/17/17 20:48 98 Nasal Cannula 2.00 03/17/17 20:48 03/17/17 20:28 98.4 93 24 Orders Orders Complete Blood Count With Diff (03/17/17 20:00) Comprehensive Metabolic Panel (03/17/17 20:00) B-Type Natriuretic Peptide (03/17/17 20:00) Act Partial Throm Time (Ptt) (03/17/17 20:00) Prothrombin Time / Inr (Pt) (03/17/17 20:00) Ckmb (Isoenzyme) Profile (03/17/17 20:00) Troponin I (03/17/17 20:00) Influenzae A/B Antigen (03/17/17 20:00) Iv Access Insert/Monitor (03/17/17 20:00) Electrocardiogram (03/17/17 20:00) Ecg Monitoring (03/17/17 20:00) Oximetry (03/17/17 20:00) Oxygen Administration (03/17/17 20:00) Chest, Single Ap (03/17/17 20:00) Sodium Chloride 0.9% Flush (Ns Flush) (03/17/17 20:00) Methylprednisolone So Succ Inj (Solumedr (03/17/17 20:00) Albuterol-Ipratropium Neb (Duoneb Neb) (03/17/17 20:00) Labs Laboratory Tests Test 03/17/17 20:25 White Blood Count 4.8 TH/MM3 Red Blood Count 4.01 MIL/MM3 Hemoglobin 11.6 GM/DL Hematocrit 37.0 % Mean Corpuscular Volume 92.1 FL Mean Corpuscular Hemoglobin 28.9 PG Mean Corpuscular Hemoglobin Concent 31.4 % Red Cell Distribution Width 16.4 % Platelet Count 197 TH/MM3 Mean Platelet Volume 7.3 FL Neutrophils (%) (Auto) 90.2 % Lymphocytes (%) (Auto) 8.1 % Monocytes (%) (Auto) 1.1 % Eosinophils (%) (Auto) 0.4 % Basophils (%) (Auto) 0.2 % Neutrophils # (Auto) 4.3 TH/MM3 Lymphocytes # (Auto) 0.4 TH/MM3 Monocytes # (Auto) 0.1 TH/MM3 Eosinophils # (Auto) 0.0 TH/MM3 Basophils # (Auto) 0.0 TH/MM3 CBC Comment DIFF FINAL Differential Comment Prothrombin Time 12.8 SEC Prothromb Time International Ratio 1.3 RATIO Activated Partial Thromboplast Time 30.1 SEC Blood Urea Nitrogen 20 MG/DL Creatinine 0.88 MG/DL Random Glucose 131 MG/DL Total Protein 6.7 GM/DL Albumin 3.3 GM/DL Calcium Level 9.8 MG/DL Alkaline Phosphatase 85 U/L Aspartate Amino Transf (AST/SGOT) 11 U/L Alanine Aminotransferase (ALT/SGPT) 14 U/L Total Bilirubin 0.6 MG/DL Sodium Level 142 MEQ/L Potassium Level 4.8 MEQ/L Chloride Level 107 MEQ/L Carbon Dioxide Level 30.6 MEQ/L Anion Gap 4 MEQ/L Estimat Glomerular Filtration Rate 61 ML/MIN Total Creatine Kinase 24 U/L Troponin I LESS THAN 0.02 NG/ML B-Type Natriuretic Peptide 134 PG/ML MDM Medical Decision Making Medical Screen Exam Complete: Yes Emergency Medical Condition: Yes Medical Record Reviewed: Yes Interpretation(s) EKG: Sinus tachycardia, rate 101, normal axis, normal intervals, slight ST depressions in inferior leads as well as V2 - V4, no ST segment elevations. Differential Diagnosis COPD exacerbation, pneumonia, influenza, pneumothorax, PE, ACS, CHF/Pulmonary edema. Narrative Course Initial vital signs show heart rate 93, blood pressure 149/89, pulse ox 97% on 2 L nasal cannula, oral temp of 98.4F. CBC: WBC 4.8, hemoglobin 11.6, hematocrit 37, platelets 197, neutrophils 90.2%. CMP is essentially unremarkable. BNP is 134. Cardiac enzymes are negative. Chest x-ray shows no definite acute disease. The patient was given 3 DuoNeb treatments and IV Solu-Medrol and on reassessment reports that her respiratory status is improved. Clinically she looks significantly improved, however she is still slightly tachypneic and has slight end expiratory wheezes on the right. Given the severity of symptoms at time of presentation as well as the patient's age, I would like to admit her for overnight observation with breathing treatments as necessary as well as serial cardiac enzymes. She is amenable to this plan. Case discussed with hospitalist Dr. Funk who will admit the patient to her service. Diagnosis Primary Impression: COPD exacerbation Admitting Information Admitting Physician Requests: Dawit Cochran MD Mar 17, 2017 20:02
[2017-03-17] MEDS: RESP: ALBUTEROL 2.5 MG/IPRATROPIUM 0.5 MG NEB (SCH) INH ×2 (20:06→20:07)
[2017-03-17 20:08] VITALS: O2SAT 99
[2017-03-17 20:28] VITALS: BP 149/89; PULSE 93; RESP 24; TEMP 98.4; O2SAT 97
[2017-03-17 20:39] LABS: AUTOMATED NEUTROPHIL # 4.3 TH/MM3 (1.8-7.7); BASOPHIL % 0.2 % (0.0-2.0); EOSINOPHIL % 0.4 % (0.0-4.0); HEMOGLOBIN 11.6 GM/DL (11.6-15.3); LYMPH % 8.1 % (9.0-44.0); LYMPHOCYTE # 0.4 TH/MM3 (1.0-4.8); MEAN CELL VOLUME 92.1 FL (80.0-100.0); MEAN CORPUSCULAR HEMOGLOBIN 28.9 PG (27.0-34.0); MEAN CORPUSCULAR HGB CONC 31.4 % (32.0-36.0); MEAN PLATELET VOLUME 7.3 FL (7.0-11.0); MONO % 1.1 % (0.0-8.0); MONOCYTE # 0.1 TH/MM3 (0-0.9); NEUT % 90.2 % (16.0-70.0); PLATELET COUNT 197 TH/MM3 (150-450); RED BLOOD COUNT 4.01 MIL/MM3 (4.00-5.30); RED CELL DISTRIBUTION WIDTH 16.4 % (11.6-17.2); WHITE BLOOD COUNT 4.8 TH/MM3 (4.0-11.0)
[2017-03-17 20:48] VITALS: O2SAT 98
[2017-03-17 20:51] LABS: CHLORIDE 107 MEQ/L (98-107); SODIUM (NA) 142 MEQ/L (136-145)
[2017-03-17 20:56] LABS: ALBUMIN 3.3 GM/DL (3.4-5.0); BICARBONATE 30.6 MEQ/L (21.0-32.0); BLOOD UREA NITROGEN 20 MG/DL (7-18); CALCIUM 9.8 MG/DL (8.5-10.1); GLUCOSE,RANDOM 131 MG/DL (74-106); INTERNATIONAL NORMALIZED RATIO 1.3 RATIO; PROTHROMBIN TIME - PATIENT 12.8 SEC (9.8-11.6)
[2017-03-17 20:59] LABS: ALT (GPT) 14 U/L (10-53); AST (GOT) 11 U/L (15-37); CREATININE 0.88 MG/DL (0.50-1.00); GLOMERULAR FILTRATION RATE 61 ML/MIN (>89)
[2017-03-17 21:01] LABS: TOTAL BILIRUBIN ADULT 0.6 MG/DL (0.2-1.0); TOTAL PROTEIN 6.7 GM/DL (6.4-8.2)
--- NOTE | 2017-03-17 21:01 | RADRPT ---
EXAM DATE/TIME: 03/17/2017 20:45 [facility] COMPARISON: CHEST SINGLE AP, January 31, 2016, 12:15. CHEST SINGLE AP, February 18, 2017, 14:44. INDICATIONS : Short of breath for three days. MEDICAL HISTORY : Cardiovascular disease. Hypertension Renal insufficiency. SURGICAL HISTORY : Appendectomy. Cholecystectomy. Hysterectomy. ENCOUNTER: Initial ACUITY: 3 days PAIN SCORE: 0/10 LOCATION: Bilateral chest FINDINGS: Stable left apical lung nodule. Mild apical calcific pleural parenchymal scarring present. No evidenc e of valvular consolidation or pleural effusion. Cardiac contours are stable. CONCLUSION: No definite acute disease. Wilmar Shepherd MD on March 17, 2017 at 20:58 Board Certified Radiologist. This report was verified electronically.
[2017-03-17 21:02] LABS: ALKALINE PHOSPHATASE 85 U/L (45-117)
[2017-03-17 21:04] LABS: TROPONIN I LESS THAN 0.02 NG/ML (0.02-0.05)
[2017-03-17 21:43] VITALS: BP 156/75; PULSE 96; RESP 20; O2SAT 96
[2017-03-17] MEDS ORDERED: ONDANSETRON HCL 4 MG/2 ML VIAL IVP PRN (21:45)
[2017-03-17] MEDS ORDERED: RESP: ALBUTEROL 2.5 MG/IPRATROPIUM 0.5 MG NEB (PRN) NEB (21:45)
[2017-03-17] MEDS ORDERED: SENNOSIDES 8.6 MG TAB PO PRN (21:45)
[2017-03-17] MEDS ORDERED: ACETAMINOPHEN/HYDROcodone 325 MG/5 MG TAB PO PRN (21:45)
[2017-03-17] MEDS ORDERED: MAGNESIUM HYDROXIDE SUSP 30 ML CUP PO PRN (21:45)
[2017-03-17] MEDS ORDERED: LACTULOSE SYRUP 20 GM/30 ML CUP PO PRN (21:45)
[2017-03-17] MEDS ORDERED: ACETAMINOPHEN 325 MG TAB PO PRN (21:45)
[2017-03-17] MEDS ORDERED: BISACODYL 10 MG SUPP RECTAL PRN (21:45)
[2017-03-17] MEDS ORDERED: ACETAMINOPHEN/HYDROcodone 325 MG/10 MG TAB PO PRN (21:45)
[2017-03-17] MEDS ORDERED: FLUTICASONE PROPIONATE 50 MCG/ACT 16 GM NASAL SPRAY NASAL SCH (22:00)
[2017-03-17 22:17] VITALS: BP 156/75
[2017-03-17 22:30] VITALS: PULSE 99
[2017-03-17] MEDS: BUDESONIDE-FORMOTEROL 160/4.5 MCG INHALER INH SCH (22:53)
[2017-03-17] MEDS ORDERED: cloNIDine HCL 0.1 MG TAB PO PRN (23:15)
[2017-03-17] MEDS ORDERED: WARFARIN SOD 5 MG TAB PO ONE (23:15)
[2017-03-18] VITALS (9 sets, daily range): BP systolic 103–186; BP diastolic 54–104; PULSE 81–98; RESP 18–20; TEMP 97.2–98.2; O2SAT 94–99
[2017-03-18] MEDS: methylPREDNISolone SOD SUCC 40 MG/1 ML VIAL IV PUSH SCH ×5 (00:03→23:46)
[2017-03-18] MEDS: LEVOTHYROXINE SODIUM 112 MCG TAB PO SCH (05:03)
[2017-03-18] MEDS: LEVOTHYROXINE SODIUM 25 MCG TAB PO SCH (05:03)
[2017-03-18] MEDS: ISOSORBIDE MONONITRATE 60 MG TAB PO SCH (05:27)
[2017-03-18 06:32] LABS: BASOPHIL % 0.3 % (0.0-2.0); EOSINOPHIL % 0.1 % (0.0-4.0); HEMATOCRIT 33.1 % (35.0-46.0); HEMOGLOBIN 10.5 GM/DL (11.6-15.3); LYMPH % 6.5 % (9.0-44.0); LYMPHOCYTE # 0.2 TH/MM3 (1.0-4.8); MEAN CELL VOLUME 91.2 FL (80.0-100.0); MEAN CORPUSCULAR HEMOGLOBIN 28.9 PG (27.0-34.0); MEAN CORPUSCULAR HGB CONC 31.6 % (32.0-36.0); MEAN PLATELET VOLUME 7.6 FL (7.0-11.0); MONO % 0.4 % (0.0-8.0); NEUT % 92.7 % (16.0-70.0); PLATELET COUNT 191 TH/MM3 (150-450); RED BLOOD COUNT 3.63 MIL/MM3 (4.00-5.30); WHITE BLOOD COUNT 3.2 TH/MM3 (4.0-11.0)
[2017-03-18 06:55] LABS: CHLORIDE 106 MEQ/L (98-107); SODIUM (NA) 142 MEQ/L (136-145)
[2017-03-18 06:57] LABS: INTERNATIONAL NORMALIZED RATIO 1.4 RATIO
[2017-03-18 06:59] LABS: ALBUMIN 2.9 GM/DL (3.4-5.0); BICARBONATE 30.1 MEQ/L (21.0-32.0); CALCIUM 9.7 MG/DL (8.5-10.1); GLUCOSE,RANDOM 154 MG/DL (74-106)
[2017-03-18 07:00] LABS: BLOOD UREA NITROGEN 20 MG/DL (7-18)
[2017-03-18 07:03] LABS: ALT (GPT) 12 U/L (10-53); AST (GOT) 7 U/L (15-37); CREATININE 0.91 MG/DL (0.50-1.00); GLOMERULAR FILTRATION RATE 58 ML/MIN (>89)
[2017-03-18 07:04] LABS: TOTAL BILIRUBIN ADULT 0.6 MG/DL (0.2-1.0); TOTAL PROTEIN 5.9 GM/DL (6.4-8.2)
[2017-03-18 07:05] LABS: ALKALINE PHOSPHATASE 68 U/L (45-117)
[2017-03-18 07:07] LABS: TROPONIN I LESS THAN 0.02 NG/ML (0.02-0.05)
[2017-03-18] MEDS: RESP: ALBUTEROL 2.5 MG/IPRATROPIUM 0.5 MG NEB (SCH) NEB ×4 (07:28→19:40)
--- NOTE | 2017-03-18 08:40 | HHI.HP ---
[facility] Jose Rafael Granado MD Admission Diagnosis COPD exacerbation, abnormal EKG Diagnoses: (1) COPD exacerbation Diagnosis: Principal Chief Complaint: Worsening shortness of breath Travel History International Travel<30 Days: No Contact w/Intl Traveler <30 Da: No Traveled to Known Affected Are: No History of Present Illness Written by Radha Angel, acting as scribe for Dr. Ba on 03/18/17 at 08:28. Ms. Baxter is an 86-year-old female patient with a known medical history of COPD, atrial fibrillation, hyperlipidemia and CHF who presented to the ED with complaints of worsening shortness of breath. She states that she has had a difficult time breathing for a few days. Does admit to wheezing at home. Used her nebulizer at home with no reprieve. States that her dyspnea is worse with exertion and better with rest. Admits to "heaviness" and congestion in chest. Denies any recent illness including fever, chills, headache, abdominal pain, nausea, vomiting, diarrhea, dysuria, or chest pain. Patient states that she has had two hospital admissions this year, uses her nebulizers between 2-4 times per day, uses home O2 with 2 LNC and CPAP at night. 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 Review of Systems Constitutional: DENIES: Fever, Chills Eyes: DENIES: Blurred vision, Diplopia Respiratory: COMPLAINS OF: Cough, Wheezing, Sputum production, Shortness of breath Cardiovascular: DENIES: Chest pain Gastrointestinal: DENIES: Abdominal pain, Constipation, Diarrhea, Nausea, Vomiting Psychiatric: COMPLAINS OF: Anxiety Except as stated in HPI: all other systems reviewed are Neg Past Family Social History Past Medical History COPD Atrial fibrillation on Coumadin Hyperlipidemia CHF History of esophageal stricture and dilation GERD Hypertension Thyroid disease Past Surgical History Appendectomy Cholecystectomy Hysterectomy Reported Medications Active Albuterol Neb (Albuterol Sulfate) 2.5 Mg/3 Ml Neb 2.5 Mg INH Q2HR NEB PRN Reported Warfarin 6 Mg Tab 5 Mg PO DAILY Pulmicort Respules (Budesonide) 0.25 Mg/2 Ml Neb 0.25 Mg NEB Q12HR NEB Isosorbide Mononitrate ER (Isosorbide Mononitrate) 60 Mg Tab 60 Mg PO DAILY Torsemide 20 Mg Tab 20 Mg PO DAILY Synthroid (Levothyroxine Sodium) 137 Mcg Tab 137 Mcg PO DAILY Flonase Nasal [place] (Fluticasone Nasal [place]) 50 Mcg/Act [place] 1 [place] EACH NARE BID PRN Diltiazem CD 24 HR 120 Mg Caper 120 Mg PO DAILY Cozaar (Losartan Potassium) 25 Mg Tab 25 Mg PO DAILY Combivent Respimat Inh (Ipratropium-Albuterol Inh) 20-100 Correction/Act Aero 1 Puff INH QID PRN Simvastatin 20 Mg Tab 20 Mg PO HS Allergies: Coded Allergies: aspirin (Unverified Allergy, Severe, Rash, 12/06/16) Active Ordered Medications Current Medications Medications (Trade) Dose Ordered Sig/Nancy Route Start Time Stop Time Status Last Admin (SoluMEDROL INJ) 40 mg Q6HR IV PUSH 03/18/17 00:00 03/18/17 05:03 (Symbicort 160-4.5 Mcg Inh) 2 puff Q12HR INH 03/17/17 21:45 (Duoneb Neb) 1 ampule Q4HR WHILE AWAKE NEB NEB 03/18/17 08:00 03/18/17 07:28 (Duoneb Neb) 1 ampule Q2HR NEB PRN NEB 03/17/17 21:45 (NS Flush) 2 ml UNSCH PRN IV FLUSH 03/17/17 21:45 (NS Flush) 2 ml BID IV FLUSH 03/18/17 09:00 (Zofran Inj) 4 mg Q6H PRN IVP 03/17/17 21:45 (Tylenol) 650 mg Q6H PRN PO 03/17/17 21:45 ([place] 5-325 Mg) 1 tab Q4H PRN PO 03/17/17 21:45 ([place] 10-325 Mg) 1 tab Q4H PRN PO 03/17/17 21:45 (Tish-Colace) 1 tab BID PO 03/18/17 09:00 (Milk Of Magnesia Liq) 30 ml Q12H PRN PO 03/17/17 21:45 (Senokot) 17.2 mg Q12H PRN PO 03/17/17 21:45 (Dulcolax Supp) 10 mg DAILY PRN RECTAL 03/17/17 21:45 (Lactulose Liq) 30 ml DAILY PRN PO 03/17/17 21:45 (Cardizem Cd) 120 mg DAILY PO 03/18/17 09:00 (Imdur) 60 mg DAILY@0700 PO 03/18/17 07:00 03/18/17 05:27 (Cozaar) 25 mg DAILY PO 03/18/17 09:00 (Demadex) 20 mg DAILY PO 03/18/17 09:00 (Coumadin) 5 mg DAILY@1600 PO 03/18/17 16:00 (Synthroid) 25 mcg DAILY@0600 PO 03/18/17 06:00 03/18/17 05:03 (Pravachol) 40 mg HS PO 03/18/17 21:00 (Flonase [place] Spr) 1 spray BID NASAL 03/18/17 09:00 (Synthroid) 112 mcg DAILY@0600 PO 03/18/17 06:00 03/18/17 05:03 (Catapres) 0.1 mg Q6H PRN PO 03/17/17 23:15 Family History Maternal medical history significant for lung disease. Son and daughter also has COPD. Social History Denies any tobacco use, does admit to a history of smoking quit 35 years ago, previously smoked 1 ppd for 40 years. Admits to occasional alcohol use. Denies any illicit drug use. Physical Exam Vital Signs Vital Signs Date Time Temp Pulse Resp B/P (MAP) Pulse Ox O2 Delivery O2 Flow Rate FiO2 03/18/17 07:28 98 Nasal Cannula 2.00 03/18/17 04:00 97.8 81 18 186/82 (116) 94 03/18/17 00:00 99 Nasal Cannula 2.00 03/18/17 00:00 97.2 98 20 140/104 (116) 99 03/17/17 22:30 99 03/17/17 22:17 93 20 156/75 (102) 97 Nasal Cannula 2.00 03/17/17 21:43 96 20 156/75 (102) 96 Nasal Cannula 2.00 03/17/17 20:48 98 Nasal Cannula 2.00 03/17/17 20:48 98 03/17/17 20:28 98.4 93 24 149/89 (109) 97 Nasal Cannula 2.00 03/17/17 20:08 99 Nasal Cannula 4.00 Physical Exam GENERAL: This is a well-nourished, well-developed female patient, lying in bed on supplemental O2 2LNC, in no apparent distress. SKIN: No rashes, ecchymoses or lesions. Warm and dry. HEAD: Atraumatic. Normocephalic. EYES: Pupils equal round and reactive. Extraocular motions intact. No scleral icterus. No injection or drainage. ENT: Nose without bleeding, purulent drainage or septal hematoma. Throat without erythema, tonsillar hypertrophy or exudate. Uvula midline. Airway patent. NECK: Trachea midline. No JVD. Supple. CARDIOVASCULAR: Regular rate and rhythm without murmurs, gallops, or rubs. RESPIRATORY: Scattered expiratory wheezing noted throughout. Breath sounds equal bilaterally. No wheezes, rales, or rhonchi. GASTROINTESTINAL: Abdomen soft, non-tender, nondistended. No guarding. Active Bs x 4 q. MUSCULOSKELETAL: Extremities without clubbing, cyanosis. No joint tenderness, effusion, or edema noted. Bilateral lower extremity trace edema. NEUROLOGICAL: Awake and alert. Cranial nerves II through XII intact. Motor and sensory grossly within normal limits. Five out of 5 muscle strength in all muscle groups. Normal speech. Laboratory Laboratory Tests Test 03/17/17 20:25 03/18/17 00:06 03/18/17 06:02 White Blood Count 4.8 3.2 Red Blood Count 4.01 3.63 Hemoglobin 11.6 10.5 Hematocrit 37.0 33.1 Mean Corpuscular Volume 92.1 91.2 Mean Corpuscular Hemoglobin 28.9 28.9 Mean Corpuscular Hemoglobin Concent 31.4 31.6 Red Cell Distribution Width 16.4 16.0 Platelet Count 197 191 Mean Platelet Volume 7.3 7.6 Neutrophils (%) (Auto) 90.2 92.7 Lymphocytes (%) (Auto) 8.1 6.5 Monocytes (%) (Auto) 1.1 0.4 Eosinophils (%) (Auto) 0.4 0.1 Basophils (%) (Auto) 0.2 0.3 Neutrophils # (Auto) 4.3 3.0 Lymphocytes # (Auto) 0.4 0.2 Monocytes # (Auto) 0.1 0.0 Eosinophils # (Auto) 0.0 0.0 Basophils # (Auto) 0.0 0.0 CBC Comment DIFF FINAL DIFF FINAL Differential Comment Prothrombin Time 12.8 14.0 Prothromb Time International Ratio 1.3 1.4 Activated Partial Thromboplast Time 30.1 Blood Urea Nitrogen 20 20 Creatinine 0.88 0.91 Random Glucose 131 154 Total Protein 6.7 5.9 Albumin 3.3 2.9 Calcium Level 9.8 9.7 Alkaline Phosphatase 85 68 Aspartate Amino Transf (AST/SGOT) 11 7 Alanine Aminotransferase (ALT/SGPT) 14 12 Total Bilirubin 0.6 0.6 Sodium Level 142 142 Potassium Level 4.8 4.7 Chloride Level 107 106 Carbon Dioxide Level 30.6 30.1 Anion Gap 4 6 Estimat Glomerular Filtration Rate 61 58 Total Creatine Kinase 24 Troponin I LESS THAN 0.02 LESS THAN 0.02 LESS THAN 0.02 B-Type Natriuretic Peptide 134 Date/Time Source Procedure Growth Status 03/17/17 20:25 Nasal Washing Influenza Types A,B Antigen (MOE) - Final NEGATIVE FOR FLU A AND B ANTIGEN.... Complete Result Diagram: 03/18/17 0602 03/18/17601 Imaging Last Impressions Chest X-Ray 03/17/171999 Signed Impressions: Service Date/Time: February 20:45 - CONCLUSION: No definite acute disease. Wilmar Shepherd MD Septic Shock Reassessment Septic shock perfusion: reassessment completed Caprini VTE Risk Assessment Caprini VTE Risk Assessment: Mod/High Risk (score >= 2) Caprini Risk Assessment Model Point Value = 1 Point Value = 2 Point Value = 3 Point Value = 5 Age 41-60 Minor surgery BMI > 25 kg/m2 Swollen legs Varicose veins or History of unexplained or recurrent spontaneous Oral contraceptives or hormone replacement Sepsis (< 1 month) Serious lung disease, including pneumonia (< 1 month) Abnormal pulmonary function Acute myocardial infarction Congestive heart failure (< 1 month) History of inflammatory bowel disease Medical patient at bed rest Age 61-74 Arthroscopic surgery Major open surgery (> 45 min) Laparoscopic surgery (> 45 min) Malignancy Confined to bed (> 72 hours) Immobilizing plaster cast Central venous access Age >= 75 History of VTE Family history of VTE Factor V Leiden Prothrombin [id number] Lupus anticoagulant Anticardiolipin antibodies Elevated serum homocysteine Heparin-induced thrombocytopenia Other congenital or acquired thrombophilia Stroke (< 1 month) Elective arthroplasty Hip, pelvis, or leg fracture Acute spinal cord injury (< 1 month) Prophylaxis Regimen Total Risk Factor Score Risk Level Prophylaxis Regimen 0-1 Low Early ambulation 2 Moderate Order ONE of the following: *Sequential Compression Device (SCD) *Heparin 5000 units SQ BID 3-4 Higher Order ONE of the following medications: *Heparin 5000 units SQ TID *Enoxaparin/Lovenox 40 mg SQ daily (WT < 150 kg, CrCl > 30 mL/min) *Enoxaparin/Lovenox 30 mg SQ daily (WT < 150 kg, CrCl > 10-29 mL/min) *Enoxaparin/Lovenox 30 mg SQ BID (WT < 150 kg, CrCl > 30 mL/min) AND/OR *Sequential Compression Device (SCD) 5 or more Highest Order ONE of the following medications: *Heparin 5000 units SQ TID (Preferred with Epidurals) *Enoxaparin/Lovenox 40 mg SQ daily (WT < 150 kg, CrCl > 30 mL/min) *Enoxaparin/Lovenox 30 mg SQ daily (WT < 150 kg, CrCl > 10-29 mL/min) *Enoxaparin/Lovenox 30 mg SQ BID (WT < 150 kg, CrCl > 30 mL/min) AND *Sequential Compression Device (SCD) Assessment and Plan Problem List: (1) COPD exacerbation ICD Code: J44.1 - Chronic obstructive pulmonary disease with (acute) exacerbation Status: Acute (2) CAD (coronary artery disease) ICD Code: I25.10 - CAD (coronary artery disease) Status: Chronic (3) Hypothyroidism ICD Code: E03.9 - Hypothyroidism Status: Chronic (4) Dyslipidemia ICD Code: E78.5 - Hyperlipidemia, unspecified (5) Constipation ICD Code: K59.00 - Constipation, unspecified Assessment and Plan Ms. Baxter is an 86-year-old female patient with a known medical history of COPD, hyperlipidemia, HTN and hypothyroidism who presented to the ED with worsening shortness of breath. Acute on chronic COPD exacerbation CXR reviewed showing no definite acute disease. IV steroids given in ED. Will continue IV Methylprednisolone as scheduled. Continue Duonebs scheduled and PRN. Continue home inhalers. Supplemental O2 to keep sats > 92%. Labs reviewed, BNP 134, serial troponins flat. WBC WNL. Will continue home torsemide. Control pain, [place] available PRN per pain scale. Supportive care. Hypertension, chronic: BP elevated intermittently. Continue home medications and continue to monitor BP trend. Clonidine available PRN. Atrial fibrillation, on Coumadin: Continue Cardizem. Continue cardiac telemetry , monitor for any presence of arrhythmias. Continue Coumadin. INR subtherapeutic. Consult pharmacy to dose, will follow INR. Constipation: Will add tish-Colace. PRN medications available. Hyperlipidemia, chronic: Continue home statin. Hypothyroidism, chronic: Continue home Levothyroxine. DVT Prophylaxis: SCDs. Coumadin. Discharge hopefully tomorrow. Follows with Dr. Carter in the outpatient setting. Continue to follow clinically. This note was transcribed by JONAH Adkins. I, Dr. Theresa Ba personally performed the history, physical exam, and medical decision making; and confirmed the accuracy of the information in the transcribed note. Authenticated by Dr. Theresa Ba on 03/18/17 at 08:28. Radha Angel Mar 18, 2017 08:40 Theresa Ba MD Mar 18, 2017 13:02
[2017-03-18] MEDS: FLUTICASONE PROPIONATE 50 MCG/ACT 16 GM NASAL SPRAY NASAL SCH ×2 (08:47→20:58)
[2017-03-18] MEDS: BUDESONIDE-FORMOTEROL 160/4.5 MCG INHALER INH SCH ×2 (08:49→20:58)
[2017-03-18] MEDS: SODIUM CHLORIDE 0.9% FLUSH 10 ML FLUSH IV FLUSH SCH ×2 (08:50→20:58)
[2017-03-18] MEDS: TORSEMIDE 20 MG TAB PO SCH (08:51)
[2017-03-18] MEDS: LOSARTAN 25 MG TAB PO SCH (08:51)
[2017-03-18] MEDS: DOCUSATE SODIUM 50 MG/SENNA 8.6 MG TAB PO SCH ×2 (08:51→20:57)
[2017-03-18] MEDS: DILTIAZEM-CD 120 MG CAP ER PO SCH (08:51)
[2017-03-18] MEDS: SODIUM CHLORIDE 0.9% FLUSH 10 ML FLUSH IV FLUSH PRN ×2 (13:27→18:07)
--- NOTE | 2017-03-18 14:26 | EKG ---
Date Performed: 03/17/2017 Time Performed: 20:05:25 PTAGE: 86 years EKG: SINUS TACHYCARDIA MODERATE ST DEPRESSION ABNORMAL ECG PREVIOUS TRACING : 02/18/2017 14.18 Since prior tracing, sinus rate is faster. ST depressions a re new, consider ischemia. DOCTOR: Ibrahima Carpenter Interpretating Date/Time 03/18/2017 14:24:41
[2017-03-18] MEDS ORDERED: WARFARIN SOD 5 MG TAB PO SCH ×2 (16:00→21:00)
[2017-03-18] MEDS ORDERED: WARFARIN SOD 2.5 MG TAB PO ONE ×2 (16:00→21:00)
[2017-03-18] MEDS ORDERED: PRAVASTATIN SOD 40 MG TAB PO SCH (21:00)
[2017-03-19] VITALS: BP 100/51; PULSE 80; RESP 18; TEMP 96.6; O2SAT 97
[2017-03-19 04:00] VITALS: BP 166/73; PULSE 83; RESP 18; TEMP 96.6; O2SAT 98
[2017-03-19] MEDS: LEVOTHYROXINE SODIUM 25 MCG TAB PO SCH (05:45)
[2017-03-19] MEDS: methylPREDNISolone SOD SUCC 40 MG/1 ML VIAL IV PUSH SCH (05:45)
[2017-03-19] MEDS: ISOSORBIDE MONONITRATE 60 MG TAB PO SCH (05:45)
[2017-03-19] MEDS: LEVOTHYROXINE SODIUM 112 MCG TAB PO SCH (05:45)
[2017-03-19 07:14] LABS: AUTOMATED NEUTROPHIL # 8.7 TH/MM3 (1.8-7.7); BASOPHIL % 0.1 % (0.0-2.0); EOSINOPHIL % 0.1 % (0.0-4.0); HEMATOCRIT 33.1 % (35.0-46.0); HEMOGLOBIN 10.3 GM/DL (11.6-15.3); LYMPH % 3.8 % (9.0-44.0); LYMPHOCYTE # 0.4 TH/MM3 (1.0-4.8); MEAN CELL VOLUME 92.2 FL (80.0-100.0); MEAN CORPUSCULAR HEMOGLOBIN 28.6 PG (27.0-34.0); MEAN PLATELET VOLUME 7.7 FL (7.0-11.0); MONO % 2.1 % (0.0-8.0); MONOCYTE # 0.2 TH/MM3 (0-0.9); NEUT % 93.9 % (16.0-70.0); PLATELET COUNT 236 TH/MM3 (150-450); RED BLOOD COUNT 3.59 MIL/MM3 (4.00-5.30); RED CELL DISTRIBUTION WIDTH 16.6 % (11.6-17.2); WHITE BLOOD COUNT 9.3 TH/MM3 (4.0-11.0)
[2017-03-19 07:30] VITALS: BP 151/70; PULSE 90; RESP 20; TEMP 96.5; O2SAT 98
[2017-03-19 07:33] LABS: INTERNATIONAL NORMALIZED RATIO 1.8 RATIO; PROTHROMBIN TIME - PATIENT 18.7 SEC (9.8-11.6)
[2017-03-19 07:50] LABS: BICARBONATE 31.5 MEQ/L (21.0-32.0); CALCIUM 9.9 MG/DL (8.5-10.1)
[2017-03-19 07:54] LABS: CREATININE 1.2 MG/DL (0.50-1.00)
[2017-03-19 08:00] VITALS: O2SAT 97
[2017-03-19] MEDS: RESP: ALBUTEROL 2.5 MG/IPRATROPIUM 0.5 MG NEB (SCH) NEB ×2 (08:00→11:14)
[2017-03-19 08:01] VITALS: PULSE 134
[2017-03-19] MEDS: FLUTICASONE PROPIONATE 50 MCG/ACT 16 GM NASAL SPRAY NASAL SCH (08:16)
[2017-03-19] MEDS: DILTIAZEM-CD 120 MG CAP ER PO SCH (08:16)
[2017-03-19] MEDS: BUDESONIDE-FORMOTEROL 160/4.5 MCG INHALER INH SCH (08:16)
[2017-03-19] MEDS: TORSEMIDE 20 MG TAB PO SCH (08:16)
[2017-03-19] MEDS: LOSARTAN 25 MG TAB PO SCH (08:16)
[2017-03-19] MEDS: SODIUM CHLORIDE 0.9% FLUSH 10 ML FLUSH IV FLUSH SCH (08:17)
[2017-03-19] MEDS: DOCUSATE SODIUM 50 MG/SENNA 8.6 MG TAB PO SCH (08:18)
--- NOTE | 2017-03-19 08:29 | HHI.PR ---
Subjective Remarks Denies chest pain, shortness of breath, cough, wheezing. Denies fever or chills. She is much better and she wants to go home. Follow-up with pulmonology as outpatient Objective Vitals Vital Signs Date Time Temp Pulse Resp B/P (MAP) Pulse Ox O2 Delivery O2 Flow Rate FiO2 03/19/17 04:00 96.6 83 18 166/73 (104) 98 03/19/17 00:00 96.6 80 18 100/51 (67) 97 03/18/17 21:36 98 Nasal Cannula 2.00 03/18/17 20:30 86 03/18/17 20:00 97.2 89 18 122/59 (80) 98 03/18/17 19:40 98 Nasal Cannula 2.00 03/18/17 16:00 98.2 86 20 114/59 (77) 97 03/18/17 12:00 98.0 82 20 103/54 (70) 96 03/18/17 08:45 97 Nasal Cannula 2.00 I/O 03/18/17 03/18/17 03/18/17 03/19/17 03/19/17 03/19/17 07:00 15:00 23:00 07:00 15:00 23:00 Intake Total 120 ml 6 ml 0 ml Balance 120 ml 6 ml 0 ml Intake Oral 120 ml 0 ml IV Total 6 ml # Voids 1 1 # Bowel Movements 0 Result Diagram: 03/19/1762003/19/17620 Imaging Last Impressions Chest X-Ray 03/17/171999 Signed Impressions: Service Date/Time: February 20:45 - CONCLUSION: No definite acute disease. Wilmar Shepherd MD Objective Remarks GENERAL: This is a well-nourished, well-developed female patient, lying in bed on supplemental O2 2LNC, in no apparent distress. SKIN: No rashes, ecchymoses. Old healing scars on dorsal aspect of right hand. . Warm and dry. CARDIOVASCULAR: Regular rate and rhythm without murmurs, gallops, or rubs. RESPIRATORY: No wheezing. Better air entry. Breath sounds equal bilaterally. No wheezes, rales, or rhonchi. GASTROINTESTINAL: Abdomen soft, non-tender, nondistended. No guarding. Active Bs x 4 q. MUSCULOSKELETAL: Extremities without clubbing, cyanosis. No joint tenderness, effusion, or edema noted. Bilateral lower extremity trace edema. NEUROLOGICAL: Awake and alert. Cranial nerves II through XII intact. Motor and sensory grossly within normal limits. Five out of 5 muscle strength in all muscle groups. Normal speech. A/P Problem List: (1) COPD exacerbation ICD Code: J44.1 - Chronic obstructive pulmonary disease with (acute) exacerbation Status: Acute (2) CAD (coronary artery disease) ICD Code: I25.10 - CAD (coronary artery disease) Status: Chronic (3) Hypothyroidism ICD Code: E03.9 - Hypothyroidism Status: Chronic (4) Dyslipidemia ICD Code: E78.5 - Hyperlipidemia, unspecified (5) Constipation ICD Code: K59.00 - Constipation, unspecified Assessment and Plan Ms. Baxter is an 86-year-old female patient with a known medical history of COPD, hyperlipidemia, HTN and hypothyroidism who presented to the ED with worsening shortness of breath. Acute on chronic COPD exacerbation CXR reviewed showing no definite acute disease. IV steroids given in ED. Will continue IV Methylprednisolone as scheduled.Tapered Continue Duonebs scheduled and PRN. Continue home inhalers. Supplemental O2 to keep sats > 92%. Labs reviewed, BNP 134, serial troponins flat. WBC WNL. Will continue home torsemide. Control pain, [place] available PRN per pain scale. Supportive care. Hypertension, chronic: BP elevated intermittently. Continue home medications and continue to monitor BP trend. Clonidine available PRN. Atrial fibrillation, on Coumadin: Continue Cardizem. Continue cardiac telemetry , monitor for any presence of arrhythmias. Continue Coumadin. INR subtherapeutic. Consult pharmacy to dose, will follow INR. Constipation: Will add jordin-Colace. PRN medications available. Hyperlipidemia, chronic: Continue home statin. Hypothyroidism, chronic: Continue home Levothyroxine. DVT Prophylaxis: SCDs. Coumadin. Discharge today. Follows with Dr. Carter in the outpatient setting. Continue to follow clinically. Discharge Planning Discharged home in stable condition to follow-up with PCP and consultants as outpatient Diet heart healthy diet and diabetic diet Medications per medication reconciliation Activity ad christi. as tolerated Theresa Ba MD Mar 19, 2017 08:29
[2017-03-19] MEDS ORDERED: PRED10PA PO (08:32)
--- NOTE | 2017-03-19 08:32 | HHI.DCPOC ---
Discharge Care Plan Goals to Promote Your Health * To prevent worsening of your condition and complications * To maintain your health at the optimal level Directions to Meet Your Goals Take your medications as prescribed Follow your dietary instruction Follow activity as directed Keep your appointments as scheduled Take your immunizations and boosters as scheduled If your symptoms worsen call your PCP, if no PCP go to Urgent Care Center or Emergency Room Smoking is Dangerous to Your Health. Avoid second hand smoke Call the 24-hour hour crisis hotline for domestic abuse at Theresa Ba MD Mar 19, 2017 08:32
[2017-03-19] MEDS ORDERED: DILTIAZEM HCL 30 MG TAB PO ONE (10:15)
[2017-03-19] MEDS ORDERED: WARFARIN SOD 2.5 MG TAB PO ONE (10:45)
[2017-03-19] MEDS ORDERED: COUM7.5T PO (10:48)
[2017-03-20] MEDS ORDERED: WARFARIN SOD 7.5 MG TAB PO SCH (21:00)
== END 2017-03-19 12:08 | disposition home or self-care (01) ==
LOC: PHED 19:55 → PHEDA 21:34 → PH3A 22:13
PROVIDERS: ADMIT Hospitalist; ATTEND Hospitalist
DX: J44.1 Chronic obstructive pulmonary disease with (acute) exacerbation (principal); I25.10 Atherosclerotic heart disease of native coronary artery without angina pectoris; E03.9 Hypothyroidism, unspecified; E78.5 Hyperlipidemia, unspecified; K59.00 Constipation, unspecified; I50.9 Heart failure, unspecified; I11.0 Hypertensive heart disease with heart failure; I48.91 Unspecified atrial fibrillation; Z79.01 Long term (current) use of anticoagulants; D64.9 Anemia, unspecified; K21.9 Gastro-esophageal reflux disease without esophagitis; Z79.899 Other long term (current) drug therapy; R00.0 Tachycardia, unspecified; R06.82 Tachypnea, not elsewhere classified
CPT/HCPCS: 71010; 80048; 80053; 82550; 83880; 84484; 85025; 85610; 85730; 87804; 93005; 94640; 94664; 96374; 96376; 99285; G0378; J2920; J2930

== ENCOUNTER 2017-04-17 12:53 | Inpatient (IN) | payer MEDICARE, OTHER ==
[~2017-04-17] VITALS: Ht 157.5 cm; Wt 74.3 kg
[2017-04-17] VITALS (11 sets, daily range): BP systolic 95–140; BP diastolic 51–85; PULSE 75–105; RESP 18–20; TEMP 96.7–98.7; O2SAT 96–99
[~2017-04-17 12:53] MED LIST changes: -AZIT250T3 PO; +COUM7.5T PO; +PRED10PA PO; -PRED20 PO; -WARF-60 PO; -[UNRECOGNIZED DRUG - CODE] PO
--- NOTE | 2017-04-17 13:03 | PD ---
HPI Chief Complaint: Respiratory Symptoms Time Seen by Provider: 13:02 Travel History International Travel<30 days: No Contact w/Intl Traveler<30days: No Traveled to known affect area: No History of Present Illness HPI 86-year-old female came to the emergency room with history of progressive shortness of breath for past 2-3 days. Patient says she has been short of breath at rest and extremely short of breath upon taking a few steps. Has history of A. fib and COPD. She is also noticed that both her legs have been pretty swollen. No history of fever or chills. No history of chest pain. Vital signs were relatively stable upon patient's arrival that she looked uncomfortable. She lives by herself. She is not a smoker. Her horse exerciser is . No history of syncopal episode. Patient takes a blood thinner for her A. fib. [facility] Past Medical History Narrative Medical List of her past medical, surgical, social and family history is reviewed from the nursing note. Hx Anticoagulant Therapy: Yes (coumadin) Anemia: Yes Arthritis: Yes Asthma: Yes Atrial Fibrillation: Yes Autoimmune Disease: No Blood Disorders: No Anxiety: No Depression: No Heart Rhythm Problems: Yes (AFIB) Cancer: No Cardiovascular Problems: Yes High Cholesterol: Yes Chemotherapy: No Chest Pain: No Congestive Heart Failure: No COPD: Yes Cerebrovascular Accident: No Diabetes: No Diminished Hearing: No Endocrine: Yes Gastrointestinal Disorders: Yes (HX OF ESOPHAGEAL STRICTURE/DILATION) GERD: Yes Glaucoma: No Genitourinary: Yes Headaches: Yes Hepatitis: No Hiatal Hernia: No Heparin Induced Thrombocytopen: No Hypertension: Yes Immune Disorder: No Implanted Vascular Access Dvce: No Kidney Stones: No Musculoskeletal: Yes Neurologic: Yes Psychiatric: No Reproductive: No Respiratory: Yes Migraines: No Myocardial Infarction: No Radiation Therapy: No Renal Failure: No Seizures: No Sleep Apnea: Yes (HASN'T USED CPAP SINCE APR 2016) Thyroid Disease: Yes Ulcer: No Past Surgical History Abdominal Surgery: Yes (gall bladder removed, appendectomy) AICD: No Appendectomy: Yes Arteriovenous Shunt: No Cardiac Surgery: No Cholecystectomy: Yes Ear Surgery: No Endocrine Surgery: No Eye Surgery: No Genitourinary Surgery: No Gynecologic Surgery: Yes (hysterectomy) Hysterectomy: Yes Insulin Pump: No Joint Replacement: Yes Neurologic Surgery: No Oral Surgery: No Pacemaker: No Thoracic Surgery: No Other Surgery: Yes Social History Alcohol Use: Yes (RARE) Tobacco Use: No (quit 26 years ago) Substance Use: No Allergies-Medications (Allergen,Severity, Reaction): Coded Allergies: aspirin (Unverified Allergy, Severe, Rash, 12/06/16) Comments List of her allergies reviewed from the nursing note. Reported Meds & Prescriptions Reported Meds & Active Scripts Active Albuterol Neb (Albuterol Sulfate) 2.5 Mg/3 Ml Neb 2.5 Mg INH Q2HR NEB PRN Reported Calcium 500 +D (Calcium Carbonate-Cholecalciferol) 500-400 Mg-Unit Tab 2 Tab PO DAILY Nexium (Esomeprazole DR) 40 Mg Capdr 40 Mg PO DAILY Klor-Con M15 (Potassium Chloride Microencaps) 15 Meq Tab 15 Meq PO DAILY Warfarin 6 Mg Tab 6 Mg PO DAILY Pulmicort Respules (Budesonide) 0.25 Mg/2 Ml Neb 0.25 Mg NEB Q12HR NEB Isosorbide Mononitrate ER (Isosorbide Mononitrate) 60 Mg Tab 60 Mg PO DAILY Torsemide 20 Mg Tab 20 Mg PO DAILY Synthroid (Levothyroxine Sodium) 137 Mcg Tab 137 Mcg PO DAILY Flonase Nasal [place] (Fluticasone Nasal [place]) 50 Mcg/Act [place] 1 [place] EACH NARE BID PRN Diltiazem CD 24 HR 120 Mg Caper 120 Mg PO DAILY Cozaar (Losartan Potassium) 25 Mg Tab 25 Mg PO DAILY Combivent Respimat Inh (Ipratropium-Albuterol Inh) 20-100 [place]/Act [place] 1 Puff INH QID PRN Simvastatin 20 Mg Tab 20 Mg PO HS Narrative Medication List of her home medications reviewed from the nursing note. Review of Systems Except as stated in HPI: all other systems reviewed are Neg Respiratory: Positive: Shortness of Breath Musculoskeletal: Positive: Edema Physical Exam Narrative GENERAL: Awake, alert, elderly, moderate distress, anxious SKIN: Focused skin assessment warm/dry. HEAD: Atraumatic. Normocephalic. EYES: Pupils equal and round. No scleral icterus. No injection or drainage. ENT: No nasal bleeding or discharge. Mucous membranes pink and moist. NECK: Trachea midline. No JVD. CARDIOVASCULAR: Regular rate and rhythm. No murmur appreciated. RESPIRATORY: Tachypnea, diminished air entry, end expiratory wheeze GASTROINTESTINAL: Abdomen soft, non-tender, nondistended. Hepatic and splenic margins not palpable. MUSCULOSKELETAL: No obvious deformities. No clubbing. No cyanosis. Bilateral 3 + pedal edema NEUROLOGICAL: Awake and alert. No obvious cranial nerve deficits. Motor grossly within normal limits. Normal speech. PSYCHIATRIC: Appropriate mood and affect; insight and judgment normal. Data Data Last Documented VS Vital Signs Date Time Temp Pulse Resp B/P (MAP) Pulse Ox O2 Delivery O2 Flow Rate FiO2 04/17/17 15:24 105 20 108/60 (76) 98 Nasal Cannula 2.00 04/17/17 13:01 98.7 Orders Orders Complete Blood Count With Diff (04/17/17 13:08) Basic Metabolic Panel (Bmp) (04/17/17 13:08) B-Type Natriuretic Peptide (04/17/17 13:08) Prothrombin Time / Inr (Pt) (04/17/17 13:08) Troponin I (04/17/17 13:08) Urinalysis - C+S If Indicated (04/17/17 13:08) Iv Access Insert/Monitor (04/17/17 13:08) Ecg Monitoring (04/17/17 13:08) Oximetry (04/17/17 13:08) Oxygen Administration (04/17/17 13:08) Chest, Single Ap (04/17/17 13:08) Sodium Chloride 0.9% Flush (Ns Flush) (04/17/17 13:15) Furosemide Inj (Lasix Inj) (04/17/17 13:15) Albuterol-Ipratropium Neb (Duoneb Neb) (04/17/17 13:15) Electrocardiogram (04/17/17 13:05) Electrocardiogram (04/17/17 ) Acetaminophen (Tylenol) (04/17/17 15:15) Diltiazem Inj (Cardizem Inj) (04/17/17 15:30) Diltiazem (Cardizem) (04/17/17 15:30) Admit Order (Ed Use Only) (04/17/17 15:43) Labs Laboratory Tests Test 04/17/17 13:15 04/17/17 13:35 White Blood Count 5.0 TH/MM3 Red Blood Count 3.60 MIL/MM3 Hemoglobin 10.5 GM/DL Hematocrit 33.3 % Mean Corpuscular Volume 92.5 FL Mean Corpuscular Hemoglobin 29.1 PG Mean Corpuscular Hemoglobin Concent 31.4 % Red Cell Distribution Width 16.4 % Platelet Count 246 TH/MM3 Mean Platelet Volume 7.5 FL Neutrophils (%) (Auto) 71.3 % Lymphocytes (%) (Auto) 16.1 % Monocytes (%) (Auto) 7.6 % Eosinophils (%) (Auto) 4.1 % Basophils (%) (Auto) 0.9 % Neutrophils # (Auto) 3.6 TH/MM3 Lymphocytes # (Auto) 0.8 TH/MM3 Monocytes # (Auto) 0.4 TH/MM3 Eosinophils # (Auto) 0.2 TH/MM3 Basophils # (Auto) 0.0 TH/MM3 CBC Comment DIFF FINAL Differential Comment Prothrombin Time 38.3 SEC Prothromb Time International Ratio 3.8 RATIO Blood Urea Nitrogen 18 MG/DL Creatinine 1.00 MG/DL Random Glucose 82 MG/DL Calcium Level 8.9 MG/DL Sodium Level 141 MEQ/L Potassium Level 4.3 MEQ/L Chloride Level 103 MEQ/L Carbon Dioxide Level 30.5 MEQ/L Anion Gap 8 MEQ/L Estimat Glomerular Filtration Rate 52 ML/MIN Troponin I LESS THAN 0.02 NG/ML B-Type Natriuretic Peptide 101 PG/ML Urine Collection Type CLEAN CATCH Urine Color S Urine Turbidity CLEAR Urine pH 6.5 Urine Specific [place] 1.005 Urine Protein NEG mg/dL Urine Glucose (UA) NEG mg/dL Urine Ketones NEG mg/dL Urine Occult Blood SMALL Urine Nitrite NEG Urine Bilirubin NEG Urine Leukocyte Esterase NEG Urine WBC 3-5 /hpf Urine Squamous Epithelial Cells 0-5 /hpf Urine Amorphous Sediment FEW Microscopic Urinalysis Comment CULT NOT INDICATED Urine Collection Time 1305 MDM Medical Decision Making Medical Screen Exam Complete: Yes Emergency Medical Condition: Yes Medical Record Reviewed: Yes Interpretation(s) Twelve-lead EKG was reviewed by me. Normal sinus, normal axis, nonspecific ST- T wave changes. Heart rate of 86 bpm. Differential Diagnosis CHF exacerbation, COPD exacerbation Narrative Course 3:13 PM any to the patient appeared to be fluid overloaded and she was given 40 mg of Lasix IV. Also gave HER-2 duo nebs. Blood test results came back and they're within acceptable limits. X-ray was negative. I went back to reassess her and now she is complaining of some chest pain. Also her pulse on the monitor appears to be irregularly irregular and RVR. This could be from the bronchodilator she received. I've ordered for a repeat chest x-ray given her chest pain. Patient's INR is slightly supratherapeutic. Her age and her distress and would like to keep her in the hospital. Awaiting for the hospitalist to call back. 3:23 PM there was a repeat EKG ordered since patient complained of some chest pain. The repeat EKG shows A. fib with RVR. I've given her 50 mg of IV Cardizem and by mouth Cardizem. Procedures EKG Prior to Arrival: No Diagnosis Primary Impression: Respiratory distress Additional Impressions: COPD exacerbation Atrial fibrillation with RVR Bilateral leg edema Admitting Information Admitting Physician Requests: Observation Wandy Hooker MD Apr 17, 2017 13:03
[2017-04-17] MEDS ORDERED: WARF-60 PO (13:06)
[2017-04-17] MEDS ORDERED: CALC1TAB12 PO (13:06)
[2017-04-17] MEDS ORDERED: [UNRECOGNIZED DRUG - CODE] PO (13:06)
[2017-04-17] MEDS ORDERED: NEXI40CA PO (13:06)
[2017-04-17] MEDS ORDERED: FUROSEMIDE 40 MG/4 ML VIAL IVP ONE (13:15)
[2017-04-17] MEDS: RESP: ALBUTEROL 2.5 MG/IPRATROPIUM 0.5 MG NEB (SCH) INH (13:18)
[2017-04-17 13:28] LABS: AUTOMATED NEUTROPHIL # 3.6 TH/MM3 (1.8-7.7); BASOPHIL % 0.9 % (0.0-2.0); EOSINOPHIL # 0.2 TH/MM3 (0-0.4); EOSINOPHIL % 4.1 % (0.0-4.0); HEMATOCRIT 33.3 % (35.0-46.0); HEMOGLOBIN 10.5 GM/DL (11.6-15.3); LYMPH % 16.1 % (9.0-44.0); LYMPHOCYTE # 0.8 TH/MM3 (1.0-4.8); MEAN CELL VOLUME 92.5 FL (80.0-100.0); MEAN CORPUSCULAR HEMOGLOBIN 29.1 PG (27.0-34.0); MEAN CORPUSCULAR HGB CONC 31.4 % (32.0-36.0); MEAN PLATELET VOLUME 7.5 FL (7.0-11.0); MONO % 7.6 % (0.0-8.0); MONOCYTE # 0.4 TH/MM3 (0-0.9); NEUT % 71.3 % (16.0-70.0); PLATELET COUNT 246 TH/MM3 (150-450); RED CELL DISTRIBUTION WIDTH 16.4 % (11.6-17.2)
--- NOTE | 2017-04-17 13:37 | RADRPT ---
EXAM DATE/TIME: 04/17/2017 13:19 [place] COMPARISON: CHEST SINGLE AP, April 27, 2016, 15:52. CHEST SINGLE AP, March 17, 2017, 20:45. INDICATIONS : Short of breath, bilateral lower leg swelling MEDICAL HISTORY : Chronic obstructive pulmonary disease. SURGICAL HISTORY : None. ENCOUNTER: Initial ACUITY: 4 - 6 days PAIN SCORE: 0/10 LOCATION: Bilateral chest FINDINGS: Single AP view of the chest. 2 cm left upper lung nodule again seen. The lungs are otherwise clear. C ardiomediastinal silhouette within normal limits. No evidence of pleural effusion or pneumothorax. Hi gh riding right humeral head indicating rotator cuff tendon insufficiency. CONCLUSION: 2 cm upper lung nodule unchanged. No other acute cardiopulmonary disease identified. Jhonny Salazar MD on April 17, 2017 at 13:32 Board Certified Radiologist. This report was verified electronically.
[2017-04-17 13:54] LABS: CHLORIDE 103 MEQ/L (98-107); SODIUM (NA) 141 MEQ/L (136-145)
[2017-04-17 13:56] LABS: CALCIUM 8.9 MG/DL (8.5-10.1); INTERNATIONAL NORMALIZED RATIO 3.8 RATIO; PROTHROMBIN TIME - PATIENT 38.3 SEC (9.8-11.6)
[2017-04-17 13:57] LABS: BICARBONATE 30.5 MEQ/L (21.0-32.0); BLOOD UREA NITROGEN 18 MG/DL (7-18); GLUCOSE,RANDOM 82 MG/DL (74-106)
[2017-04-17 14:00] LABS: GLOMERULAR FILTRATION RATE 52 ML/MIN (>89)
[2017-04-17 14:05] LABS: TROPONIN I LESS THAN 0.02 NG/ML (0.02-0.05)
[2017-04-17 14:13] LABS: BILIRUBIN, URINE NEG (NEG); BLOOD, URINE SMALL (NEG); GLUCOSE,URINE NEG (NEG); KETONE, URINE NEG (NEG); NITRITE,URINE NEG (NEG); PH, URINE 6.5 (5.0-8.5); URINE LEUKOCYTE ESTERASE NEG (NEG)
[2017-04-17 14:51] LABS: AMORPHOUS SEDIMENT, URINE FEW; SQUAMOUS EPITHELIAL CELL URINE 0-5 /hpf (0-5); URINE COLOR S (YELLW/STRAW)
[2017-04-17] MEDS ORDERED: ACETAMINOPHEN 325 MG TAB PO ONE (15:15)
[2017-04-17] MEDS ORDERED: DILTIAZEM HCL 90 MG TAB PO ONE (15:30)
[2017-04-17] MEDS ORDERED: DILTIAZEM HCL 25 MG/5 ML VIAL IV ONE (15:30)
--- NOTE | 2017-04-17 16:55 | HHI.HP ---
HPI Service [facility] Primary Care Physician Jose Rafael Granado MD Admission Diagnosis respiratory distress, COPD exacerbation, A. fib with RVR Diagnoses: Chief Complaint: shortness of breath Travel History International Travel<30 Days: No Contact w/Intl Traveler <30 Da: No Traveled to Known Affected Are: No History of Present Illness 86-year-old white female being admitted for shortness of breath. Patient was in her usual state of health until about a 3-4 days ago when she began experiencing some lower extremity edema. This was followed by some increased shortness of breath a few days afterwards. She thinks she hurt herself wheezes well. She decided of eventually, into the hospital since she could only take 1-2 steps and was very labored in her breathing. She also notes some redness on her legs that was chronic got substantially worse in the past few days as well. She denies any fevers or chills nausea vomiting. Patient does report that she thinks that she takes a diuretic at home. Her medical reconciliation shows torsemide as a home medication. Emergency department she was given duo nebs and subsequently she experienced some chest pain as well as tachycardic to the 130s and was concluded to be A. fib with RVR (known history of A. fib). Patient was given 15 mg of IV Cardizem with good control of her heart rate afterwards. Review of Systems Except as stated in HPI: all other systems reviewed are Neg Past Family Social History Past Medical History COPD A. fib Allergies: Coded Allergies: aspirin (Unverified Allergy, Severe, Rash, 12/06/16) Physical Exam Vital Signs Vital Signs Date Time Temp Pulse Resp B/P (MAP) Pulse Ox O2 Delivery O2 Flow Rate FiO2 04/17/17 16:49 04/17/17 16:23 75 20 113/64 (80) 96 Nasal Cannula 2.00 04/17/17 15:24 105 20 108/60 (76) 98 Nasal Cannula 2.00 04/17/17 14:01 105 20 95/70 (78) 97 Room Air 04/17/17 13:52 79 20 99/51 (67) 98 04/17/17 13:18 97 Nasal Cannula 2.00 04/17/17 13:11 96 04/17/17 13:11 96 Nasal Cannula 2.00 04/17/17 13:01 98.7 86 20 140/72 (94) 97 Physical Exam VS: afebrile GENERAL: Elderly white female, lying in bed, appears exhausted and but otherwise in no acute distress SKIN: erythematous anterior shins BL EYES: No scleral icterus. No injection or drainage. ENT: No nasal bleeding or discharge. NC in nose. CARDIOVASCULAR: Regular rate and rhythm. no murmurs RESPIRATORY: No accessory muscle use. Slightly diminished breath sounds in the bases bilaterally with no crackles or wheezing GASTROINTESTINAL: Abdomen soft, non-tender, nondistended. Extremities: No clubbing, cyanosis. 2+ moderate pitting LE edema with tenderness over erythematous areas MUSCULOSKELETAL: adequate muscle bulk and tone for age and habitus NEUROLOGICAL: Awake and alert. No obvious cranial nerve deficits. No facial droop nor slurred speech noted. PSYCHIATRIC: Appropriate mood and affect; insight and judgment normal. Laboratory Laboratory Tests Test 04/17/17 13:15 04/17/17 13:35 White Blood Count 5.0 Red Blood Count 3.60 Hemoglobin 10.5 Hematocrit 33.3 Mean Corpuscular Volume 92.5 Mean Corpuscular Hemoglobin 29.1 Mean Corpuscular Hemoglobin Concent 31.4 Red Cell Distribution Width 16.4 Platelet Count 246 Mean Platelet Volume 7.5 Neutrophils (%) (Auto) 71.3 Lymphocytes (%) (Auto) 16.1 Monocytes (%) (Auto) 7.6 Eosinophils (%) (Auto) 4.1 Basophils (%) (Auto) 0.9 Neutrophils # (Auto) 3.6 Lymphocytes # (Auto) 0.8 Monocytes # (Auto) 0.4 Eosinophils # (Auto) 0.2 Basophils # (Auto) 0.0 CBC Comment DIFF FINAL Differential Comment Prothrombin Time 38.3 Prothromb Time International Ratio 3.8 Blood Urea Nitrogen 18 Creatinine 1.00 Random Glucose 82 Calcium Level 8.9 Sodium Level 141 Potassium Level 4.3 Chloride Level 103 Carbon Dioxide Level 30.5 Anion Gap 8 Estimat Glomerular Filtration Rate 52 Troponin I LESS THAN 0.02 B-Type Natriuretic Peptide 101 Urine Collection Type CLEAN CATCH Urine Color S Urine Turbidity CLEAR Urine pH 6.5 Urine Specific [place] 1.005 Urine Protein NEG Urine Glucose (UA) NEG Urine Ketones NEG Urine Occult Blood SMALL Urine Nitrite NEG Urine Bilirubin NEG Urine Leukocyte Esterase NEG Urine WBC 3-5 Urine Squamous Epithelial Cells 0-5 Urine Amorphous Sediment FEW Microscopic Urinalysis Comment CULT NOT INDICATED Urine Collection Time 1305 Result Diagram: 04/17/17 1315 04/17/17 1315 Imaging Last Impressions Chest X-Ray 04/17/17 1308 Signed Impressions: Service Date/Time: Monday, April 17, 2017 13:19 - CONCLUSION: 2 cm upper lung nodule unchanged. No other acute cardiopulmonary disease identified. MD Aravind Carmona VTE Risk Assessment Caprini VTE Risk Assessment: Mod/High Risk (score >= 2) Caprini Risk Assessment Model Point Value = 1 Point Value = 2 Point Value = 3 Point Value = 5 Age 41-60 Minor surgery BMI > 25 kg/m2 Swollen legs Varicose veins or History of unexplained or recurrent spontaneous Oral contraceptives or hormone replacement Sepsis (< 1 month) Serious lung disease, including pneumonia (< 1 month) Abnormal pulmonary function Acute myocardial infarction Congestive heart failure (< 1 month) History of inflammatory bowel disease Medical patient at bed rest Age 61-74 Arthroscopic surgery Major open surgery (> 45 min) Laparoscopic surgery (> 45 min) Malignancy Confined to bed (> 72 hours) Immobilizing plaster cast Central venous access Age >= 75 History of VTE Family history of VTE Factor V Leiden Prothrombin [id number] Lupus anticoagulant Anticardiolipin antibodies Elevated serum homocysteine Heparin-induced thrombocytopenia Other congenital or acquired thrombophilia Stroke (< 1 month) Elective arthroplasty Hip, pelvis, or leg fracture Acute spinal cord injury (< 1 month) Prophylaxis Regimen Total Risk Factor Score Risk Level Prophylaxis Regimen 0-1 Low Early ambulation 2 Moderate Order ONE of the following: *Sequential Compression Device (SCD) *Heparin 5000 units SQ BID 3-4 Higher Order ONE of the following medications: *Heparin 5000 units SQ TID *Enoxaparin/Lovenox 40 mg SQ daily (WT < 150 kg, CrCl > 30 mL/min) *Enoxaparin/Lovenox 30 mg SQ daily (WT < 150 kg, CrCl > 10-29 mL/min) *Enoxaparin/Lovenox 30 mg SQ BID (WT < 150 kg, CrCl > 30 mL/min) AND/OR *Sequential Compression Device (SCD) 5 or more Highest Order ONE of the following medications: *Heparin 5000 units SQ TID (Preferred with Epidurals) *Enoxaparin/Lovenox 40 mg SQ daily (WT < 150 kg, CrCl > 30 mL/min) *Enoxaparin/Lovenox 30 mg SQ daily (WT < 150 kg, CrCl > 10-29 mL/min) *Enoxaparin/Lovenox 30 mg SQ BID (WT < 150 kg, CrCl > 30 mL/min) AND *Sequential Compression Device (SCD) Assessment and Plan Assessment and Plan Ms. Baxter is an 86-year-old female patient with a known medical history of COPD, hyperlipidemia, HTN and hypothyroidism who presented to the ED with worsening shortness of breath. SOB - At this point her shortness of breath is likely multifactorial with the element of very mild acute COPD exacerbation as well as some transient tachycardia from her A. fib that was most likely bronchodilator induced. Status post IV Cardizem bolus. We will continue her duo nebs scheduled and as needed as well as her home inhalers. Continue with IV steroids w/ quick taper Lower extremity edema with erythema - CHF versus dependent edema versus cellulitis versus stasis dermatitis vs all of the above. echo showing EF of 65% 3 months ago. - Starting IV Lasix, starting antibiotics, marking erythematous margins daily Atrial fibrillation, on Coumadin: Continue home Cardizem and coumadin. We'll need to monitor INR w/ pharm consult given usage of antibiotics chronic hypoxic resp failure - at base line home O2 Hypertension, chronic: stable BP as of now, monitor Hyperlipidemia, chronic: Continue home statin. Hypothyroidism, chronic: Continue home Levothyroxine. DVT Prophylaxis: Coumadin. unable to do scds due to LE abnormalities. Otilio Fonseca MD Apr 17, 2017 16:55
[2017-04-17] MEDS ORDERED: methylPREDNISolone SOD SUCC 125 MG/2 ML VIAL IV PUSH ONE (17:15)
[2017-04-17] MEDS ORDERED: Vancomycin Consult Pharmacy 1 EA OTHER SCH (18:30)
[2017-04-17] MEDS ORDERED: POTASSIUM CHLORIDE 10 MEQ CONTROLLED RELEASE TAB PO ONE (18:45)
[2017-04-17] MEDS ORDERED: ALBUTEROL SULFATE 90 MCG/ACT HFA 8 GM INHALER INH PRN (19:00)
[2017-04-17] MEDS ORDERED: PILL SPLITTER OTHER PRN (19:15)
[2017-04-17] MEDS ORDERED: DO NOT ADM ANY ANTICOAGULANT DRUGS OTHER PRN (19:30)
[2017-04-17] MEDS: RESP: ALBUTEROL 2.5 MG/IPRATROPIUM 0.5 MG NEB (SCH) NEB (19:59)
[2017-04-17] MEDS: VANCOMYCIN 1,000 MG/NS 250 ML IV SCH ×2 (20:42)
[2017-04-17] MEDS: methylPREDNISolone SOD SUCC 125 MG/2 ML VIAL IV PUSH SCH (20:54)
[2017-04-17] MEDS: PRAVASTATIN SOD 40 MG TAB PO SCH (20:54)
[2017-04-17] MEDS: SODIUM CHLORIDE 0.9% FLUSH 10 ML FLUSH IVF PRN ×2 (20:55→22:15)
[2017-04-17] MEDS: RESP: BUDESONIDE 0.25 MG/2 ML NEB NEB SCH (21:49)
[2017-04-17] MEDS: ceFAZolin INJ 500 MG in SODIUM CHLORIDE 0.9% INJ 100 ML IV SCH (22:14)
[2017-04-18] VITALS (7 sets, daily range): BP systolic 106–156; BP diastolic 66–96; PULSE 72–96; RESP 18–24; TEMP 96.5–98.4; O2SAT 97–98
[2017-04-18] MEDS: ceFAZolin INJ 500 MG in SODIUM CHLORIDE 0.9% INJ 100 ML IV SCH ×3 (05:09→20:34)
[2017-04-18] MEDS: ISOSORBIDE MONONITRATE 60 MG TAB PO SCH (06:11)
[2017-04-18] MEDS: LEVOTHYROXINE SODIUM 25 MCG TAB PO SCH (06:12)
[2017-04-18] MEDS: LEVOTHYROXINE SODIUM 112 MCG TAB PO SCH (06:12)
[2017-04-18] MEDS: RESP: BUDESONIDE 0.25 MG/2 ML NEB NEB SCH ×2 (07:55→20:04)
[2017-04-18] MEDS: RESP: ALBUTEROL 2.5 MG/IPRATROPIUM 0.5 MG NEB (SCH) NEB ×3 (07:55→20:04)
[2017-04-18] MEDS: DILTIAZEM-CD 120 MG CAP ER PO SCH (08:52)
[2017-04-18] MEDS: PANTOPRAZOLE SOD 40 MG DELAYED RELEASE TAB PO SCH (08:53)
[2017-04-18] MEDS: POTASSIUM CHLORIDE 10 MEQ CONTROLLED RELEASE TAB PO SCH (08:53)
[2017-04-18] MEDS: methylPREDNISolone SOD SUCC 125 MG/2 ML VIAL IV PUSH SCH ×2 (08:53→20:35)
[2017-04-18] MEDS: CALCIUM/VITAMIN D 250 MG/125 U TAB PO SCH (08:53)
--- NOTE | 2017-04-18 15:13 | HHI.PR ---
Subjective Remarks Nursing denies any deterioration since last night except for some intermittent tachycardia that we think his bronchodilator induced. Patient herself says she feels much better. However she feels that she needs another day for treatment for her SOB. She thinks her redness in her legs are much better. Objective Vital Signs Date Time Temp Pulse Resp B/P (MAP) Pulse Ox O2 Delivery O2 Flow Rate FiO2 04/18/17 12:00 98.0 95 20 119/72 (88) 98 04/18/17 08:00 97.0 82 20 156/76 (102) 97 04/18/17 08:00 Nasal Cannula 2.00 99 04/18/17 04:00 96.5 75 18 131/78 (95) 98 04/18/17 00:00 96.5 72 20 106/66 (79) 97 04/17/17 20:01 98 Nasal Cannula 2.00 04/17/17 20:00 96.7 81 20 134/85 (101) 97 04/17/17 20:00 86 04/17/17 17:53 80 04/17/17 17:38 97.7 78 18 109/64 (79) 99 04/17/17 16:49 04/17/17 16:23 75 20 113/64 (80) 96 Nasal Cannula 2.00 04/17/17 15:24 105 20 108/60 (76) 98 Nasal Cannula 2.00 I/O 04/17/17 04/17/17 04/17/17 04/18/17 04/18/17 04/18/17 06:59 14:59 22:59 06:59 14:59 22:59 Intake Total 100 ml 340 ml Balance 100 ml 340 ml Intake Oral 240 ml IV Total 100 ml 100 ml # Voids 3 # Bowel Movements 0 Result Diagram: 04/17/17 1315 04/18/17 0600 Objective Remarks Mild expiratory wheezing bilaterally Unlabored breathing, lower extremity edema is mild, very minimal erythema on the legs today bilaterally A/P Assessment and Plan Ms. Baxter is an 86-year-old female patient with a known medical history of COPD, hyperlipidemia, HTN and hypothyroidism who presented to the ED with worsening shortness of breath. SOB - Much improved since admission, likely multifactorial given COPD and possible fluid overload - Continue steroids, DuoNeb's, Cardizem as needed for tachycardia induced by duo nebs Lower extremity edema with erythema - improving - continue iv lasix, continue abx CHF versus dependent edema versus cellulitis versus stasis dermatitis vs all of the above. echo showing EF of 65% 3 months ago. Atrial fibrillation, on Coumadin: Continue home Cardizem and coumadin. We'll need to monitor INR w/ pharm consult given usage of antibiotics chronic hypoxic resp failure - at base line home O2 Hypertension, chronic: stable BP as of now, monitor Hyperlipidemia, chronic: Continue home statin. Hypothyroidism, chronic: Continue home Levothyroxine. DVT Prophylaxis: Coumadin. unable to do scds due to LE abnormalities. Otilio Fonseca MD Apr 18, 2017 15:13
[2017-04-18] MEDS ORDERED: WARFARIN SOD 6 MG TAB PO SCH (16:00)
--- NOTE | 2017-04-18 19:12 | EKG ---
Date Performed: 04/17/2017 Time Performed: 13:05:35 PTAGE: 86 years EKG: Sinus rhythm Since previous tracing, no significant change noted NORMAL ECG PREVIOUS TRACING : 03/17/2017 20.05 DOCTOR: Ismael Linder Interpretating Date/Time 04/18/2017 19:11:20
--- NOTE | 2017-04-18 19:12 | EKG ---
Date Performed: 04/17/2017 Time Performed: 15:20:45 PTAGE: 86 years EKG: ATRIAL FLUTTER/TACHYCARDIA WITH RAPID VENTRICULAR RESPONSE MODERATE INTRAVENTRICULAR CONDUC TION DELAY MODERATE ST DEPRESSION Since previous tracing, no significant change noted ABNORMAL ECG PREVIOUS TRACING : 04/17/2017 13.05 DOCTOR: Ismael Linder Interpretating Date/Time 04/18/2017 19:11:30
[2017-04-18] MEDS: PRAVASTATIN SOD 40 MG TAB PO SCH (20:35)
[2017-04-18] MEDS: SODIUM CHLORIDE 0.9% FLUSH 10 ML FLUSH IVF PRN ×2 (20:36→21:17)
[2017-04-18] MEDS: VANCOMYCIN 1,000 MG/NS 250 ML IV SCH ×2 (21:17)
[2017-04-19] VITALS (8 sets, daily range): BP systolic 131–139; BP diastolic 63–86; PULSE 87–120; RESP 20–24; TEMP 96.7–98.6; O2SAT 94–98
[2017-04-19] MEDS: ceFAZolin INJ 500 MG in SODIUM CHLORIDE 0.9% INJ 100 ML IV SCH ×3 (04:32→21:47)
[2017-04-19] MEDS: SODIUM CHLORIDE 0.9% FLUSH 10 ML FLUSH IVF PRN (04:32)
[2017-04-19] MEDS: RESP: ALBUTEROL 2.5 MG/IPRATROPIUM 0.5 MG NEB (PRN) NEB ×2 (04:58→21:30)
[2017-04-19] MEDS: LEVOTHYROXINE SODIUM 25 MCG TAB PO SCH (06:27)
[2017-04-19] MEDS: ISOSORBIDE MONONITRATE 60 MG TAB PO SCH (06:27)
[2017-04-19] MEDS: LEVOTHYROXINE SODIUM 112 MCG TAB PO SCH (06:28)
[2017-04-19 06:53] LABS: INTERNATIONAL NORMALIZED RATIO 3.1 RATIO; PROTHROMBIN TIME - PATIENT 31.5 SEC (9.8-11.6)
[2017-04-19] MEDS: RESP: ALBUTEROL 2.5 MG/IPRATROPIUM 0.5 MG NEB (SCH) NEB ×3 (07:41→20:48)
[2017-04-19] MEDS: methylPREDNISolone SOD SUCC 125 MG/2 ML VIAL IV PUSH SCH (08:49)
[2017-04-19] MEDS: CALCIUM/VITAMIN D 250 MG/125 U TAB PO SCH (08:51)
[2017-04-19] MEDS: PANTOPRAZOLE SOD 40 MG DELAYED RELEASE TAB PO SCH (08:52)
[2017-04-19] MEDS: DILTIAZEM-CD 120 MG CAP ER PO SCH (08:52)
[2017-04-19] MEDS: POTASSIUM CHLORIDE 10 MEQ CONTROLLED RELEASE TAB PO SCH (09:28)
[2017-04-19] MEDS: RESP: BUDESONIDE 0.25 MG/2 ML NEB NEB SCH ×2 (14:02→20:48)
--- NOTE | 2017-04-19 14:16 | HHI.PR ---
Subjective Remarks This patient is a 86-year-old female who was seen and evaluated today for follow -up of edema and COPD exacerbation. Lower extremity cellulitis is improved. I did state with the patient regarding her multiple admissions to the hospital over the last 6 months. Her rest or status is quite severe and the COPD at this point would warrant a consult from the hospice team. She is agreeable. She would not like to be on life support and would like a DO NOT RESUSCITATE to be entered in her records area Objective Vitals Vital Signs Date Time Temp Pulse Resp B/P (MAP) Pulse Ox O2 Delivery O2 Flow Rate FiO2 04/19/17 12:00 98.6 94 22 134/71 (92) 96 04/19/17 09:35 120 04/19/17 08:00 97.1 96 20 132/68 (89) 98 04/19/17 07:30 98 Nasal Cannula 2.00 04/19/17 00:00 96.7 92 24 137/86 (103) 98 04/18/17 20:04 98 Nasal Cannula 2.00 04/18/17 20:00 97.0 96 24 142/96 (111) 97 04/18/17 20:00 89 04/18/17 16:00 98.4 87 20 134/70 (91) 98 I/O 04/18/17 04/18/17 04/18/17 04/19/17 04/19/17 04/19/17 07:00 15:00 23:00 07:00 15:00 23:00 Intake Total 340 ml 725 ml 830 ml 580 ml Output Total 850 ml Balance 340 ml -125 ml 830 ml 580 ml Intake Oral 240 ml 725 ml 480 ml 480 ml IV Total 100 ml 350 ml 100 ml Output Urine Total 850 ml # Voids 3 2 2 # Bowel Movements 0 2 1 0 Result Diagram: 04/17/17 1315 04/18/17 0600 Imaging Last Impressions Chest X-Ray 04/17/17 1308 Signed Impressions: Service Date/Time: Monday, April 17, 2017 13:19 - CONCLUSION: 2 cm upper lung nodule unchanged. No other acute cardiopulmonary disease identified. Jhonny Salazar MD Objective Remarks GENERAL: This is a well-nourished, well-developed patient, calm but while ambulatory with pursed lipped breathing and accessory muscle use CARDIOVASCULAR: Regular rate and rhythm without murmurs, gallops, or rubs. RESPIRATORY: Sinus tachycardia. Breath sounds equal bilaterally. No wheezes, rales, or rhonchi. GASTROINTESTINAL: Abdomen soft, non-tender, nondistended. Normal active bowel sounds MUSCULOSKELETAL: Extremities without clubbing, cyanosis, or edema. NEURO: Alert & Oriented x4 to person, place, time, situation. Moves all ext x4 A/P Problem List: (1) COPD (chronic obstructive pulmonary disease) ICD Code: J44.9 - COPD (chronic obstructive pulmonary disease) Status: Chronic Plan: With mild exacerbation Patient with respiratory distress, improved with nebulized bronchodilators and IV steroids Will taper steroids and de-escalate antibiotic therapy Hospice consult has home o2 (2) Bilateral leg edema ICD Code: R60.0 - Localized edema Status: Acute Plan: Improved after Lasix Echocardiogram completed within the last several months, shows elevated pulmonary artery pressure with preserved systolic function, likely right sided heart failure due to long-standing COPD (3) Hypothyroidism ICD Code: E03.9 - Hypothyroidism Status: Chronic Plan: Continue thyroid replacement therapy (4) Afib ICD Code: I48.91 - Unspecified atrial fibrillation Plan: Currently controlled Assessment and Plan CODE STATUS addressed with this patient. She has made the decision to have a DO NOT RESUSCITATE on her chart. Discharge Planning Likely home in Unique Galvez MD Apr 19, 2017 14:16
[2017-04-19] MEDS: DOXYCYCLINE HYCLATE 100 MG CAP PO SCH (21:48)
[2017-04-19] MEDS: predniSONE 20 MG TAB PO SCH (21:48)
[2017-04-19] MEDS: PRAVASTATIN SOD 40 MG TAB PO SCH (21:57)
[2017-04-19] MEDS ORDERED: ALPRAZolam 0.25 MG TAB PO ONE (22:00)
--- NOTE | 2017-04-19 22:04 | HHI.PR ---
Addendum to Inpatient Note Addendum Reason: Additional Documentation Additional Information Received call from aquaculture and fisheries professor for discharge order, patient wants to go to the care center. RN will try to get bed tonight, if not patient will go in am. Discharge order placed in case patient goes tonight. Wendy Olivarez Apr 19, 2017 22:03
[2017-04-20] VITALS: BP 139/74; PULSE 90; RESP 20; TEMP 96.3; O2SAT 98
[2017-04-20] MEDS: SODIUM CHLORIDE 0.9% FLUSH 10 ML FLUSH IVF PRN (04:26)
[2017-04-20] MEDS: ceFAZolin INJ 500 MG in SODIUM CHLORIDE 0.9% INJ 100 ML IV SCH ×2 (04:26→11:53)
[2017-04-20 06:52] LABS: CREATININE 1.2 MG/DL (0.50-1.00)
[2017-04-20] MEDS: LEVOTHYROXINE SODIUM 112 MCG TAB PO SCH (06:52)
[2017-04-20] MEDS: LEVOTHYROXINE SODIUM 25 MCG TAB PO SCH (06:52)
[2017-04-20] MEDS: ISOSORBIDE MONONITRATE 60 MG TAB PO SCH (06:52)
[2017-04-20] MEDS: RESP: BUDESONIDE 0.25 MG/2 ML NEB NEB SCH (07:18)
[2017-04-20] MEDS: RESP: ALBUTEROL 2.5 MG/IPRATROPIUM 0.5 MG NEB (SCH) NEB (07:18)
[2017-04-20 07:20] VITALS: O2SAT 96
[2017-04-20 08:00] VITALS: BP 138/87; PULSE 128; RESP 20; TEMP 97.5; O2SAT 97
--- NOTE | 2017-04-20 10:32 | HHI.DCPOC ---
Discharge Care Plan Diagnosis: (1) Respiratory distress (2) COPD exacerbation Goals to Promote Your Health * To prevent worsening of your condition and complications * To maintain your health at the optimal level Directions to Meet Your Goals Take your medications as prescribed Follow your dietary instruction Follow activity as directed Keep your appointments as scheduled Take your immunizations and boosters as scheduled If your symptoms worsen call your PCP, if no PCP go to Urgent Care Center or Emergency Room Smoking is Dangerous to Your Health. Avoid second hand smoke Call the 24-hour hour crisis hotline for domestic abuse at Unique Davidson MD Apr 20, 2017 10:32
--- NOTE | 2017-04-20 10:34 | HHI.DS ---
cc: Samara Carter MD [facility] Discharge Summary Admission Date Apr 17, 2017 at 15:46 Discharge Date: Apr 20, 2017 Admitting Diagnosis respiratory distress, COPD exacerbation, A. fib with RVR (1) COPD (chronic obstructive pulmonary disease) ICD Code: J44.9 - COPD (chronic obstructive pulmonary disease) Status: Chronic (2) Bilateral leg edema ICD Code: R60.0 - Localized edema Status: Acute (3) Hypothyroidism ICD Code: E03.9 - Hypothyroidism Status: Chronic (4) Afib ICD Code: I48.91 - Unspecified atrial fibrillation Procedures none Brief History - From Admission 86-year-old white female being admitted for shortness of breath. Patient was in her usual state of health until about a 3-4 days ago when she began experiencing some lower extremity edema. This was followed by some increased shortness of breath a few days afterwards. She thinks she hurt herself wheezes well. She decided of eventually, into the hospital since she could only take 1-2 steps and was very labored in her breathing. She also notes some redness on her legs that was chronic got substantially worse in the past few days as well. She denies any fevers or chills nausea vomiting. Patient does report that she thinks that she takes a diuretic at home. Her medical reconciliation shows torsemide as a home medication. Emergency department she was given duo nebs and subsequently she experienced some chest pain as well as tachycardic to the 130s and was concluded to be A. fib with RVR (known history of A. fib). Patient was given 15 mg of IV Cardizem with good control of her heart rate afterwards. CBC/BMP: 04/17/17 1315 04/20/17 0535 Significant Findings Laboratory Tests Test 04/17/17 13:15 04/17/17 13:35 04/17/17 18:57 04/18/17 06:00 Red Blood Count 3.60 MIL/MM3 (4.00-5.30) Hemoglobin 10.5 GM/DL (11.6-15.3) Hematocrit 33.3 % (35.0-46.0) Mean Corpuscular Hemoglobin Concent 31.4 % (32.0-36.0) Neutrophils (%) (Auto) 71.3 % (16.0-70.0) Eosinophils (%) (Auto) 4.1 % (0.0-4.0) Lymphocytes # (Auto) 0.8 TH/MM3 (1.0-4.8) Prothrombin Time 38.3 SEC (9.8-11.6) Estimat Glomerular Filtration Rate 52 ML/MIN (>89) 52 ML/MIN (>89) Troponin I LESS THAN 0.02 NG/ML B-Type Natriuretic Peptide 101 PG/ML (0-100) Urine Occult Blood SMALL (NEG) Test 04/19/17 05:50 04/20/17 05:35 Prothrombin Time 31.5 SEC (9.8-11.6) 20.0 SEC (9.8-11.6) Creatinine 1.20 MG/DL (0.50-1.00) Estimat Glomerular Filtration Rate 42 ML/MIN (>89) Imaging Last Impressions Chest X-Ray 04/17/17 1308 Signed Impressions: Service Date/Time: Monday, April 17, 2017 13:19 - CONCLUSION: 2 cm upper lung nodule unchanged. No other acute cardiopulmonary disease identified. Jhonny Salazar MD PE at Discharge GENERAL: This is a well-nourished, well-developed patient, calm but while ambulatory with pursed lipped breathing and accessory muscle use CARDIOVASCULAR: Regular rate and rhythm without murmurs, gallops, or rubs. RESPIRATORY: Sinus tachycardia. Breath sounds equal bilaterally. No wheezes, rales, or rhonchi. GASTROINTESTINAL: Abdomen soft, non-tender, nondistended. Normal active bowel sounds MUSCULOSKELETAL: Extremities without clubbing, cyanosis, or edema. NEURO: Alert & Oriented x4 to person, place, time, situation. Moves all ext x4 Pt update on day of discharge Doing about the same Would like to go to hospice Hospital Course Seen and evaluated and treated for COPD. Patient has had multiple evaluations for pain over the last 6 months. Patient is appropriate for hospice and would like to pursue DO NOT RESUSCITATE with comfort measures and hospice consultation. This has been done. Patient is agreeable for hospice treatment Pt Condition on Discharge: Good Discharge Disposition: Hospice/Med Facility Discharge Time: <= 30 minutes Discharge Instructions DIET: Follow Instructions for: Heart Healthy Diet Activities you can perform: Regular-No Restrictions Continued Medications: Albuterol Neb (Albuterol Neb) 2.5 Mg/3 Ml Neb 2.5 MG INH Q2HR NEB PRN for SHORTNESS OF BREATH, #90 NEBULE Budesonide Neb (Pulmicort Respules) 0.25 Mg/2 Ml Neb 0.25 MG NEB Q12HR NEB for Breathing Treatment, #60 NEBULE 0 Refills Calcium Carbonate-Cholecalciferol (Calcium 500 +D) 500-400 Mg-Unit Tab 2 TAB PO DAILY for Calcium Supplement, TAB 0 Refills Diltiazem CD 24 HR (Diltiazem CD 24 HR) 120 Mg Caper 120 MG PO DAILY, #30 CAP [address] (Nexium) 40 Mg Capdr 40 MG PO DAILY for Reflux, CAP 0 Refills Fluticasone Nasal [place] (Flonase Nasal [place]) 50 Mcg/Act [place] 1 SPRAY EACH NARE BID PRN for ALLERGIES, #1 BOTTLE 0 Refills Ipratropium-Albuterol Inh (Combivent Respimat Inh) 20-100 [place]/Act [place] 1 PUFF INH QID PRN for SHORTNESS OF BREATH, #1 INHALER 0 Refills Isosorbide Mononitrate ER (Isosorbide Mononitrate ER) 60 Mg Tab 60 MG PO DAILY for Prevent Chest Pain, #30 TAB 0 Refills Levothyroxine (Synthroid) 137 Mcg Tab 137 MCG PO DAILY for Thyroid, #30 TAB 0 Refills Losartan (Cozaar) 25 Mg Tab 25 MG PO DAILY for Blood Pressure Management, #30 TAB 0 Refills Potassium Chloride Microencaps (Klor-Con M15) 15 Meq Tab 15 MEQ PO DAILY for Electrolyte Replacement, #30 TAB 0 Refills Simvastatin (Simvastatin) 20 Mg Tab 20 MG PO HS for Cholesterol Management, #30 TAB 0 Refills Torsemide (Torsemide) 20 Mg Tab 20 MG PO DAILY, #30 TAB 0 Refills Warfarin (Warfarin) 6 Mg Tab 6 MG PO DAILY for Blood Clot Prevention, #30 TAB 0 Refills Unique Davidson MD Apr 20, 2017 10:34
[2017-04-20] MEDS: DOXYCYCLINE HYCLATE 100 MG CAP PO SCH (10:41)
[2017-04-20] MEDS: POTASSIUM CHLORIDE 10 MEQ CONTROLLED RELEASE TAB PO SCH (10:42)
[2017-04-20] MEDS: predniSONE 20 MG TAB PO SCH (10:43)
[2017-04-20] MEDS: DILTIAZEM-CD 120 MG CAP ER PO SCH (10:43)
[2017-04-20] MEDS: PANTOPRAZOLE SOD 40 MG DELAYED RELEASE TAB PO SCH (10:43)
[2017-04-20] MEDS: CALCIUM/VITAMIN D 250 MG/125 U TAB PO SCH (10:43)
[2017-04-20] MEDS ORDERED: ALPRAZolam 0.25 MG TAB PO ONE (11:00)
[2017-04-20 12:00] VITALS: BP 140/91; PULSE 98; RESP 20; TEMP 97.1; O2SAT 98
[2017-04-20] MEDS ORDERED: WARFARIN SOD 6 MG TAB PO SCH (16:00)
[2017-04-20] MEDS ORDERED: PHARMACY ORDERED LAB ONE (20:45)
== END 2017-04-20 12:35 | disposition hospice, inpatient (51) | DRG 191 ==
LOC: PHED 12:53 → PHEDA 15:46 → PH3A 16:42
PROVIDERS: ADMIT Hospitalist; ATTEND Hospitalist
DX: J44.1 Chronic obstructive pulmonary disease with (acute) exacerbation (principal); J96.11 Chronic respiratory failure with hypoxia; I50.810 Right heart failure, unspecified; L03.119 Cellulitis of unspecified part of limb; I48.91 Unspecified atrial fibrillation; Z79.01 Long term (current) use of anticoagulants; R00.0 Tachycardia, unspecified; E78.5 Hyperlipidemia, unspecified; E03.9 Hypothyroidism, unspecified; I10 Essential (primary) hypertension; R60.0 Localized edema; Z66 Do not resuscitate; Z51.5 Encounter for palliative care; Z87.891 Personal history of nicotine dependence
CPT/HCPCS: 71045; 80048; 81001; 82565; 83880; 84145; 84484; 85025; 85610; 93005; 94640; 94664; 96374; 96375; J0690; J1940; J2930; J3370; J7050; J7512; J7626